=== PATIENT | female | born 1940 | race Caucasian/White ===

== ENCOUNTER 2021-02-14 20:49 | Inpatient (IN) ==
--- NOTE | 2021-02-14 21:06 | Emergency Department Note ---
History of Present Illness General Chief complaint: Hip Pain Stated complaint: hip pain Time Seen by Provider: 02/14/21 20:52 Source: patient Mode of arrival: EMS Limitations: no limitations History of Present Illness Provider complaint: Fall, right hip pain Onset (ago): hour(s) 1 Location: hip Radiation: non-radiation Severity: moderate Pain Consistency: + constant Quality: + constant Relieved By: + none Exacerbated By: + movement Associated symptoms: + denies other symptoms Treatments prior to arrival: none This is a 80-year-old female brought in by EMS after a fall and injury to the right hip. Patient states she was playing "[employer] [place]" with her great grandson at her house, and lost her balance and tripped at the end of the song and fell landing on her right hip. Patient denies any other injury. She denies any head trauma or loss of consciousness. Patient states she does not use any aspirin or anticoagulation medication. Patient states she does have high blood pressure, denies any other medical problems. Patient states pain is worse with any movement. Patient denies any prior injury to the right hip. Patient states she is ongoing chronic right knee pain due to severe arthritis. Patient denies any neck or back pain, abdominal pain. Denies any numbness or tingling. Denies any incontinence since the fall. Pt seen during a time of high acuity and national emergency pandemic while wearing PPE. Home Medications Medication Instructions Recorded Confirmed Type amlodipine 5 mg PO QAM 02/14/21 02/14/21 History atenolol 25 mg PO QAM 02/14/21 02/14/21 History lisinopril 20 mg PO BID 02/14/21 02/14/21 History multivitamin 1 tab PO QAM 02/14/21 02/14/21 History paroxetine HCl 20 mg PO HS 02/14/21 02/14/21 History potassium 99 mg PO QAM 02/14/21 02/14/21 History simvastatin 20 mg PO HS 02/14/21 02/14/21 History Allergies Allergy/AdvReac Type Severity Reaction Status Date / Time No Known Allergies Allergy Verified 02/14/21 21:46 Past Med/Surg History Medical History Arthritis Hypertension Social History Smoking Status: Never smoker Hx Alcohol Use: No Hx Substance Use: No Preferred Language: Citizen Of [place] Communication Ability: Effective Door Serviceman Required: No Current Living Situation: Family Current Living Situation Comment: dtr Feels Safe at Home: Yes Assistive Devices: Cane, Denture - Upper, Denture - Lower and Glasses Review of Systems See HPI for pertinent positives & negatives. and A total of 10 systems reviewed and were otherwise negative Physical Exam Vital Signs Vital Signs - 24 hr 02/14/21 21:00 02/14/21 21:02 02/14/21 21:30 Temperature 37.2 C Temperature Source Oral Pulse Rate 95 H 99 H 102 H Pulse Rate from SpO2 Sensor 96 H Respiratory Rate 17 18 18 Respiratory Depth Normal Blood Pressure 182/109 H 173/95 H 167/104 H Blood Pressure Mean 133 121 125 Pulse Oximetry 97 97 96 Oxygen Delivery Method Room Air Room Air Room Air Sepsis Recent Fever Within 48 Hours No Sepsis New/Unexplained Change in Mental Status N/A Sepsis Action Taken by Nursing No Action Required 02/14/21 22:00 02/14/21 22:30 02/14/21 23:00 Temperature Temperature Source Pulse Rate 93 H 94 H 94 H Pulse Rate from SpO2 Sensor 94 H 95 H 95 H Respiratory Rate 18 21 21 Respiratory Depth Blood Pressure 158/90 H 144/87 H 152/89 H Blood Pressure Mean 112 106 110 Pulse Oximetry 96 96 96 Oxygen Delivery Method Room Air Room Air Room Air Sepsis Recent Fever Within 48 Hours Sepsis New/Unexplained Change in Mental Status Sepsis Action Taken by Nursing GENERAL: alert, well appearing, well nourished, no distress, non-toxic EYE EXAM: normal conjunctiva, PERRL and EOM's grossly intact OROPHARYNX: no exudate, no erythema, lips, buccal mucosa, and tongue normal and mucous membranes are moist NECK: supple, no nuchal rigidity, no adenopathy, non-tender LUNGS: Clear to auscultation. Normal chest wall mechanics, no w/r/r HEART: no murmurs, S1 normal and S2 normal ABDOMEN: abdomen soft, non-tender, normo-active bowel sounds, no masses, no rebound or guarding. BACK: Back is symmetrical on inspection and there is no deformity, no midline tenderness, no CVA tenderness. SKIN: no rashes and no bruising UPPER EXTREMITIES: upper extremities are grossly normal. FROM, nml pulses b/l. No evidence of trauma. LOWER EXTREMITIES: Pain with palpation over the right lateral hip, right lower extremity shortened and externally rotated, no pain with palpation over the knee or distal right lower extremity, compartments soft, no joint effusions, sensation intact, patient able to wiggle toes. Patient's left lower extremity normal, with full range of motion, no evidence of trauma, no complaints of pain. NEURO EXAM: Normal sensorium, cranial nerves II-XII grossly intact, normal speech, no gross weakness of arms, no gross weakness of legs. Gross sensation intact. Course Course 2149: Patient and daughter at bedside updated on results. They state she has previously seen orthopedics but cannot recall the name. Daughter believes is may have been with U but is going to try and check. 2247: Discussed with Dr. Howard. Administered Medications Hydromorphone HCl (Hydromorphone Inj 0.5 Mg/0.5 Ml Syr) 0.5 mg IV Q3H PRN PRN Reason: Pain (6,7,8,9,10) Stop: 03/01/21 00:53 Last Admin: 02/15/21 01:25 Dose: 0.5 mg Documented by: [id number] Lactated Ringer's (Lr) 1,000 mls @ 80 mls/hr IV .[id number] [facility] Stop: 03/17/21 00:53 Last Admin: 02/15/21 01:24 Dose: 80 mls/hr Documented by: [id number] Discontinued Medications Lactated Ringer's (Lr) 1,000 mls @ 150 mls/hr IV .[id number] [facility] Stop: 03/16/21 21:14 Last Infusion: 02/15/21 01:12 Dose: 0 mls/hr Documented by: [id number] Admin: 02/14/21 21:24 Dose: 150 mls/hr Documented by: [id number] Morphine Sulfate (Morphine Sulfate 2 Mg/Ml Carp) 2 mg IV Q1H PRN PRN Reason: Moderate Pain (Rating 3,4,5,6) Stop: 02/28/21 21:00 Last Admin: 02/14/21 23:22 Dose: 2 mg Documented by: [id number] Admin: 02/14/21 21:24 Dose: 2 mg Documented by: [id number] Ondansetron HCl (Ondansetron Inj 2 Mg/Ml 2 Ml Vial) 4 mg IV ONCE ONE Stop: 02/15/21 00:06 Last Admin: 02/15/21 00:05 Dose: 4 mg Documented by: [id number] Ondansetron HCl (Ondansetron Inj 2 Mg/Ml 2 Ml Vial) Confirm Administered Dose 4 mg .ROUTE .STK-MED ONE Stop: 02/15/21 00:04 Last Admin: 02/15/21 01:04 Dose: Not Given Documented by: [id number] Medical Decision Making Differential Diagnosis Fracture, subluxation, dislocation, contusion, ligamentous injury, neurovascular, compartment syndrome, rhabdomyolysis, as well as other pathologies. Medical Records Attestation: I reviewed the patient's medical records. Home Medications Current Medication List: was personally reviewed by me Laboratory Data Attestation: I reviewed the patient's lab results. Result diagrams: 02/14/21 21:21 02/14/21 21:21 Lab Results 02/14/21 02/14/21 02/14/21 Range/Units 21:21 21:21 21:21 WBC 10.83 H (4.8-10.8) K/uL RBC 4.70 (4.2-5.4) M/uL Hgb 13.7 (12.0-16.0) g/dL Hct 40.2 (37-47) % MCV 85.5 (80-100) fL MCH 29.1 (25-34) pg MCHC 34.1 (32-36) g/dL RDW Std Deviation 40.4 (36.4-46.3) fL RDW Coeff of Adolfo 12.8 (11.5-14.5) % Plt Count 216 (130-400) K/uL MPV 11.1 H (7.4-10.4) fL Immature Gran % (Auto) 0.3 % Neut % (Auto) 76.8 % Lymph % (Auto) 12.9 % [place] % (Auto) 9.0 % Eos % (Auto) 0.7 % Baso % (Auto) 0.3 % Neut # (Auto) 8.32 H (1.4-6.5) K/uL Lymph # (Auto) 1.40 (1.2-3.4) K/uL [place] # (Auto) 0.97 H (0.11-0.59) K/uL Eos # (Auto) 0.08 (0-0.5) K/uL Baso # (Auto) 0.03 (0-0.2) K/uL Immature Gran # (Auto) 0.03 H (0.00-0.02) K/uL PT 10.6 (9.0-12.0) Seconds INR 1.0 (0.9-1.1) APTT 25.7 (21.0-31.0) Seconds PTT Ratio 1.0 Sodium 140 (136-145) mmol/L Potassium 3.8 (3.5-5.1) mmol/L Chloride 109 H (98-107) mmol/L Carbon Dioxide 26 (21-32) mmol/L Anion Gap 4.0 (3-11) BUN 19 H (7-18) mg/dl Creatinine 0.83 (0.6-1.2) mg/dl Est Cr Clr Drug Dosing 55.5 ml/min Est GFR ( Amer) 78.3 Est GFR (Non-Af Amer) 67.5 BUN/Creatinine Ratio 22.3 H (10-20) Glucose 206 H (70-99) mg/dl Calcium 9.1 (8.5-10.1) mg/dl Total Bilirubin 0.3 (0.2-1) mg/dl AST 19 (15-37) U/L ALT 23 (12-78) U/L Alkaline Phosphatase 132 H (45-117) U/L Total Protein 6.8 (6.4-8.2) gm/dl Albumin 3.9 (3.4-5.0) gm/dl Globulin 2.9 (2.5-4.0) gm/dl Albumin/Globulin Ratio 1.3 (0.9-2) Specimen Hemolysis Urine Color Urine Appearance (Clear) Urine pH (4.5-7.5) Ur Specific [place] (1.000-1.030) Urine Protein (Negative) Urine Glucose (UA) (Negative) Urine Ketones (Negative) Urine Blood (Negative) Urine Nitrite (Negative) Urine Bilirubin (Negative) Urine Urobilinogen (Negative) Ur Leukocyte Esterase (Negative) COVID-19 Eval Order SARS-CoV-2 (PCR) (Negative) Influenza Type A (PCR) (Neg) Influenza Type B (PCR) (Neg) RSV (RT-PCR) (Neg) Blood Type Antibody Screen 02/14/21 02/14/21 02/14/21 Range/Units 21:23 21:23 21:46 WBC (4.8-10.8) K/uL RBC (4.2-5.4) M/uL Hgb (12.0-16.0) g/dL Hct (37-47) % MCV (80-100) fL MCH (25-34) pg MCHC (32-36) g/dL RDW Std Deviation (36.4-46.3) fL RDW Coeff of Adolfo (11.5-14.5) % Plt Count (130-400) K/uL MPV (7.4-10.4) fL Immature Gran % (Auto) % Neut % (Auto) % Lymph % (Auto) % [place] % (Auto) % Eos % (Auto) % Baso % (Auto) % Neut # (Auto) (1.4-6.5) K/uL Lymph # (Auto) (1.2-3.4) K/uL [place] # (Auto) (0.11-0.59) K/uL Eos # (Auto) (0-0.5) K/uL Baso # (Auto) (0-0.2) K/uL Immature Gran # (Auto) (0.00-0.02) K/uL PT (9.0-12.0) Seconds INR (0.9-1.1) APTT (21.0-31.0) Seconds PTT Ratio Sodium (136-145) mmol/L Potassium (3.5-5.1) mmol/L Chloride (98-107) mmol/L Carbon Dioxide (21-32) mmol/L Anion Gap (3-11) BUN (7-18) mg/dl Creatinine (0.6-1.2) mg/dl Est Cr Clr Drug Dosing ml/min Est GFR ( Amer) Est GFR (Non-Af Amer) BUN/Creatinine Ratio (10-20) Glucose (70-99) mg/dl Calcium (8.5-10.1) mg/dl Total Bilirubin (0.2-1) mg/dl AST (15-37) U/L ALT (12-78) U/L Alkaline Phosphatase (45-117) U/L Total Protein (6.4-8.2) gm/dl Albumin (3.4-5.0) gm/dl Globulin (2.5-4.0) gm/dl Albumin/Globulin Ratio (0.9-2) Specimen Hemolysis Urine Color Urine Appearance (Clear) Urine pH (4.5-7.5) Ur Specific [place] (1.000-1.030) Urine Protein (Negative) Urine Glucose (UA) (Negative) Urine Ketones (Negative) Urine Blood (Negative) Urine Nitrite (Negative) Urine Bilirubin (Negative) Urine Urobilinogen (Negative) Ur Leukocyte Esterase (Negative) COVID-19 Eval Order CovFluRsv at [facility] SARS-CoV-2 (PCR) NEGATIVE (Negative) Influenza Type A (PCR) Negative (Neg) Influenza Type B (PCR) Negative (Neg) RSV (RT-PCR) Negative (Neg) Blood Type O Positive Antibody Screen NEGATIVE 02/14/21 Range/Units 22:15 WBC (4.8-10.8) K/uL RBC (4.2-5.4) M/uL Hgb (12.0-16.0) g/dL Hct (37-47) % MCV (80-100) fL MCH (25-34) pg MCHC (32-36) g/dL RDW Std Deviation (36.4-46.3) fL RDW Coeff of Adolfo (11.5-14.5) % Plt Count (130-400) K/uL MPV (7.4-10.4) fL Immature Gran % (Auto) % Neut % (Auto) % Lymph % (Auto) % [place] % (Auto) % Eos % (Auto) % Baso % (Auto) % Neut # (Auto) (1.4-6.5) K/uL Lymph # (Auto) (1.2-3.4) K/uL [place] # (Auto) (0.11-0.59) K/uL Eos # (Auto) (0-0.5) K/uL Baso # (Auto) (0-0.2) K/uL Immature Gran # (Auto) (0.00-0.02) K/uL PT (9.0-12.0) Seconds INR (0.9-1.1) APTT (21.0-31.0) Seconds PTT Ratio Sodium (136-145) mmol/L Potassium (3.5-5.1) mmol/L Chloride (98-107) mmol/L Carbon Dioxide (21-32) mmol/L Anion Gap (3-11) BUN (7-18) mg/dl Creatinine (0.6-1.2) mg/dl Est Cr Clr Drug Dosing ml/min Est GFR ( Amer) Est GFR (Non-Af Amer) BUN/Creatinine Ratio (10-20) Glucose (70-99) mg/dl Calcium (8.5-10.1) mg/dl Total Bilirubin (0.2-1) mg/dl AST (15-37) U/L ALT (12-78) U/L Alkaline Phosphatase (45-117) U/L Total Protein (6.4-8.2) gm/dl Albumin (3.4-5.0) gm/dl Globulin (2.5-4.0) gm/dl Albumin/Globulin Ratio (0.9-2) Specimen Hemolysis Urine Color Yellow Urine Appearance Clear (Clear) Urine pH 5.5 (4.5-7.5) Ur Specific [place] 1.020 (1.000-1.030) Urine Protein Negative (Negative) Urine Glucose (UA) Trace H (Negative) Urine Ketones Trace H (Negative) Urine Blood Negative (Negative) Urine Nitrite Negative (Negative) Urine Bilirubin Negative (Negative) Urine Urobilinogen Negative (Negative) Ur Leukocyte Esterase Negative (Negative) COVID-19 Eval Order SARS-CoV-2 (PCR) (Negative) Influenza Type A (PCR) (Neg) Influenza Type B (PCR) (Neg) RSV (RT-PCR) (Neg) Blood Type Antibody Screen Imaging Data Radiologist's Impression: Chest X-Ray 02/14/21 21:01 SINGLE VIEW CHEST CLINICAL HISTORY: Trauma. Hypertension. FINDINGS: An AP, portable, supine chest radiograph is obtained. No prior studies are available for comparison at the time of dictation. The heart is top normal for projection noting atherosclerotic calcification of the thoracic aorta. The mitral annulus is densely calcified. Question a hiatal hernia. Nonspecific interstitial thickening is likely chronic. There is no airspace consolidation or large pleural effusion. No pneumothorax is seen. The skeletal structures are osteopenic. There are healed left-sided rib fractures. IMPRESSION: No acute cardiopulmonary abnormality. ACT 112: Negative or not required by law. Electronically signed by: Wai Prather M.D. 02/14/2021 9:44 PM Hip/Pelvis X-Ray 02/14/21 21:01 SINGLE VIEW PELVIS; 2 VIEWS RIGHT HIP CLINICAL HISTORY: Trauma. FINDINGS: An AP view of the pelvis with AP and crosstable lateral views of the right hip are obtained. No prior studies are available for comparison at the time of dictation. The skeletal structures are osteopenic. The left hip and bony pelvis appear intact. There is a comminuted and angulated intertrochanteric fracture of the right femur with medial displacement of the lesser trochanter. Overlying soft tissue edema is noted. Mild to moderate degenerative joint space narrowing is present in both hips. Sclerotic change is seen in the sacroiliac joints and pubic symphysis. Spondylotic change is partially visualized in the lower lumbar spine. IMPRESSION: Intertrochanteric fracture of the right femur as above. Electronically signed by: Wai Prather M.D. 02/14/2021 9:43 PM ECG Data Attestation: I personally reviewed and interpreted this ECG as follows: Rate (beats per minute): 92 Rhythm: + normal sinus ECG Intervals/blocks: + Normal QRS and + Normal QT ECG [place]: + Normal ECG ST segments: + Normal ST segments MDM Narrative This is a 80-year-old female presents after an accidental mechanical fall at home. Patient denies any head trauma or loss of consciousness. No preceding or prodromal symptoms to otherwise suggest syncopal event. Patient hemodynamically stable here with complaints of isolated right hip pain, which was worse with m ovement. Patient found to have a right intertrochanteric hip fracture on x-ray. Patient's other labs and imaging reassuring. Case discussed with hospitalist for additional inpatient management and evaluation and orthopedic consultation. Daughter at bedside trying to recall name of prior orthopedist she had seen. This was conveyed to hospitalist for additional follow-up prior to contacting orthopedics. Patient neurovascularly intact. I do not suspect other occult traumatic injury. Patient not on any anticoagulation or antiplatelet therapy. Patient and daughter made aware of results and were in agreement with plan. An order was placed for continuous cardiac monitoring. The monitor shows a rate of _80 with _normal sinus rhythm. Impression & Plan Hip pain, Hypertension, Intertrochanteric fracture of right hip, Fall Discharge Plan Visit Data Chief Complaint: Hip Pain Stated Complaint: hip pain ED Provider: Laura Kitchen Discharge Problem: Hip pain, Hypertension, Intertrochanteric fracture of right hip, Fall Patient Disposition: Admitted As Inpatient Discharge Instructions Interventions: ED Discharge Assessment Last Done: 02/15/21 00:17 Discharge Problem: Hypertension Qualifiers: Hypertension type: essential hypertension Qualified Code(s): I10 - Essential (primary) hypertension Intertrochanteric fracture of right hip Qualifiers: Encounter type: initial encounter Fracture type: closed Fracture alignment: nondisplaced Qualified Code(s): S72.144A - Nondisplaced intertrochanteric fracture of right femur, initial encounter for closed fracture Fall Qualifiers: Encounter type: initial encounter Qualified Code(s): W19.XXXA - Unspecified fall, initial encounter
[2021-02-14] MEDS ORDERED: LACTATED RINGER'S 1,000 ML IV SCH (21:15)
[2021-02-14] MEDS: MoRPHine SULFATE 2 MG/ML CARP IV PRN ×2 (21:24→23:22)
[2021-02-14 21:30] LABS: Basophils # (auto) 0.03 K/uL (0-0.2); Basophils % (auto) 0.3 %; Eosinophils # (auto) 0.08 K/uL (0-0.5); Eosinophils % (auto) 0.7 %; Hematocrit (blood only) 40.2 % (37-47); Hemoglobin 13.7 g/dL (12.0-16.0); Immature Granulocytes # (auto) 0.03 K/uL (0.00-0.02); Immature Granulocytes % (auto) 0.3 %; Lymphocytes % (auto) 12.9 %; Mean Corpuscular Hemoglobin 29.1 pg (25-34); Mean Corpuscular Hgb Conc 34.1 g/dL (32-36); Mean Corpuscular Volume 85.5 fL (80-100); Mean Platelet Volume 11.1 fL (7.4-10.4); Monocytes # (auto) 0.97 K/uL (0.11-0.59); Neutrophils # (auto) 8.32 K/uL (1.4-6.5); Neutrophils % (auto) 76.8 %; Platelet Count 216 K/uL (130-400); RDW Coefficient of Variation 12.8 % (11.5-14.5); RDW Standard Deviation 40.4 fL (36.4-46.3); White Blood Count 10.83 K/uL (4.8-10.8)
[2021-02-14 21:43] LABS: Partial Thromboplastin Time 25.7 Seconds (21.0-31.0); Prothrombin Time 10.6 Seconds (9.0-12.0)
--- NOTE | 2021-02-14 21:44 | XRay Report ---
SINGLE VIEW PELVIS; 2 VIEWS RIGHT HIP CLINICAL HISTORY: Trauma. FINDINGS: An AP view of the pelvis with AP and crosstable lateral views of the right hip are obtained . No prior studies are available for comparison at the time of dictation. The skeletal structures are osteopenic. The left hip and bony pelvis appear intact. There is a comminuted and angulated intertro chanteric fracture of the right femur with medial displacement of the lesser trochanter. Overlying so ft tissue edema is noted. Mild to moderate degenerative joint space narrowing is present in both hips . Sclerotic change is seen in the sacroiliac joints and pubic symphysis. Spondylotic change is partia lly visualized in the lower lumbar spine. IMPRESSION: Intertrochanteric fracture of the right femur as above. Electronically signed by: Wai Prather M.D. 02/14/2021 9:43 PM
--- NOTE | 2021-02-14 21:46 | XRay Report ---
SINGLE VIEW CHEST CLINICAL HISTORY: Trauma. Hypertension. FINDINGS: An AP, portable, supine chest radiograph is obtained. No prior studies are available for co mparison at the time of dictation. The heart is top normal for projection noting atherosclerotic asim cification of the thoracic aorta. The mitral annulus is densely calcified. Question a hiatal hernia. Nonspecific interstitial thickening is likely chronic. There is no airspace consolidation or large pl eural effusion. No pneumothorax is seen. The skeletal structures are osteopenic. There are healed lef t-sided rib fractures. IMPRESSION: No acute cardiopulmonary abnormality. ACT 112: Negative or not required by law. Electronically signed by: Wai Prather M.D. 02/14/2021 9:44 PM
[2021-02-14 21:48] LABS: Albumin Level 3.9 gm/dl (3.4-5.0); BUN Creatinine Ratio 22.3 (10-20); Calcium 9.1 mg/dl (8.5-10.1); Creatinine Clr Calc Pharmacy 55.5 ml/min; Est GFR (African American) 78.3; Est GFR (Non-African American) 67.5; Potassium 3.8 mmol/L (3.5-5.1)
[2021-02-14 21:52] LABS: Albumin Globulin Ratio 1.3 (0.9-2); Bilirubin,Total 0.3 mg/dl (0.2-1); Globulin 2.9 gm/dl (2.5-4.0); Total Protein 6.8 gm/dl (6.4-8.2)
[2021-02-14] MEDS ORDERED: LORazepam 0.5 MG/1 ML VIAL IV PRN (21:57)
[2021-02-14 22:17] LABS: Influenza A virus by PCR Negative (Neg); Influenza B virus by PCR Negative (Neg); RSV by PCR Negative (Neg); SARS CoV2 RNA(COVID-19) InHosp NEGATIVE (Negative)
[2021-02-14 22:36] LABS: Appearance Urine Clear (Clear); Bilirubin Urine Negative (Negative); Blood Urine Negative (Negative); Color Urine Yellow; Glucose Urine UA Trace (Negative); Ketones Urine Trace (Negative); Leukocyte Esterase Urine Negative (Negative); Nitrite Urine Negative (Negative); Protein Urine Negative (Negative); Urobilinogen Urine Negative (Negative); pH Urine 5.5 (4.5-7.5)
--- NOTE | 2021-02-14 22:52 | Orthopedic Consultation ---
Date of Service February 14, 2021 Assessment & Plan (1) Intertrochanteric fracture of right hip: Time was spent at bedside discussing the diagnosis with Helen and her family. With a displaced intertrochanteric hip fracture I do recommend operative fixation. The procedure of choice is an intramedullary nail fixation of the right hip. She will be admitted to the medicine service. I put her on the OR schedule for tomorrow. She can be n.p.o. past midnight tonight. Her and her family understand the risk, benefits, and alternatives to procedure and elected to proceed. The decision was made for surgery. History of Present Illness Reason for Consultation: Right intertrochanteric hip fracture. Requesting Physician: . Helen is a pleasant 80-year-old female who was playing ring around the [place] with her 2-year-old this evening. At the end of the song she fell down and hurt her hip. She came to the emergency room and radiographs demonstrated a right intertrochanteric hip fracture. Orthopedics was consulted to evaluate and treat.. Allergies Allergy/AdvReac Type Severity Reaction Status Date / Time No Known Allergies Allergy Verified 02/14/21 21:46 Home Medications Medication Instructions Recorded Confirmed Type amlodipine 5 mg PO QAM 02/14/21 02/14/21 History atenolol 25 mg PO QAM 02/14/21 02/14/21 History lisinopril 20 mg PO BID 02/14/21 02/14/21 History multivitamin 1 tab PO QAM 02/14/21 02/14/21 History paroxetine HCl 20 mg PO HS 02/14/21 02/14/21 History potassium 99 mg PO QAM 02/14/21 02/14/21 History simvastatin 20 mg PO HS 02/14/21 02/14/21 History Past Med/Surg History Medical History Arthritis Hypertension Social History Smoking Status: Never smoker Hx Alcohol Use: No Hx Substance Use: No Preferred Language: Romanian Communication Ability: Effective 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 Physical Exam On physical examination of the right hip, the right lower extremity is shortened and externally rotated. She has pain with logroll of the right hip. She has active dorsiflexion and plantarflexion of the right ankle. Sensation is intact throughout.. Constitutional WD/WN, vitals as above Eyes PERRL, conjunctivae normal, anicteric sclerae ENMT external ear and nose normal, oropharynx normal Neck trachea midline, no thyromegaly Respiratory normal respiratory effort Cardiovascular RRR, no murmur, no edema Gastrointestinal (Abdomen) normal bowel sounds, soft, nontender, no hepatosplenomegaly Psychiatric A+Ox3, euthymic affect Results & Data Results & Data Laboratory Results . Diagnostic Findings X-rays of the right hip show a displaced intertrochanteric right hip fracture. I not see any significant glenohumeral arthritis.. PG Care Time/CCT Total # of Minutes Spent Total Time Spent with Patient: Total time spent is greater than 50% in coordination of care (as documented) at patient's floor/unit and/or counseling patient: Coding Level of Care Code 43616 Inpt Consult Level 5 (57 - DECISION FOR SURGERY) Diagnoses Intertrochanteric fracture of right hip S72.141A
--- NOTE | 2021-02-14 23:23 | History & Physical Report ---
Date of Service February 14, 2021 Assessment & Plan (1) Intertrochanteric fracture of right hip: Admit to medical surgical floor. N.p.o. after midnight Geriatric hip fracture protocol order set Acetaminophen 650 mg p.o. every 6 hours as needed mild pain or fever Viola 5/325, 1 p.o. every 6 hours as needed moderate pain Viola 5/325, 2 p.o. every 6 hours as needed severe pain Dilaudid 0.25 mg IV every 3 hours as needed moderate pain Dilaudid 0.5 mg IV every 3 hours as needed severe pain NSS + KCl 20 mEq at 80 mils per hour Zofran 4 mg IV every 6 hours as needed Consult orthopedic surgery Present on Admission?: Yes (2) Hypertension: Continue amlodipine, atenolol and lisinopril with hold parameters Present on Admission?: Yes (3) Hyperlipidemia: Continue simvastatin 20 mg at bedtime Present on Admission?: Yes (4) Depression: Continue paroxetine 20 mg at bedtime Present on Admission?: Yes (5) Hyperglycemia: Glucose 206 upon admission labs. Check hemoglobin A1c Placed on Accu-Cheks before meals and at bedtime with NovoLog coverage per scale Not on any current diabetic treatments as outpatient Present on Admission?: Yes History of Present Illness Chief Complaint: The patient presents to the emergency department after a fall while playing with her 2-year-old grandchild, and sustained immediate right hip pain with inability to bear weight. Primary Care Provider: Luis Ewing The patient is a 80-year-old female with a past medical history including hypertension, depression, hyperlipidemia and arthritis. She presents as noted above. Imaging studies in the emergency department revealed a closed right femoral intratrochanteric fracture. Patient was seen in the ED by orthopedic surgery Dr. López, who will take the patient to the OR tomorrow for surgical repair. Allergies Allergy/AdvReac Type Severity Reaction Status Date / Time No Known Allergies Allergy Verified 02/14/21 21:46 Home Medications Medication Instructions Recorded Confirmed Type amlodipine 5 mg PO QAM 02/14/21 02/14/21 History atenolol 25 mg PO QAM 02/14/21 02/14/21 History lisinopril 20 mg PO BID 02/14/21 02/14/21 History multivitamin 1 tab PO QAM 02/14/21 02/14/21 History paroxetine HCl 20 mg PO HS 02/14/21 02/14/21 History potassium 99 mg PO QAM 02/14/21 02/14/21 History simvastatin 20 mg PO HS 02/14/21 02/14/21 History Past Med/Surg History Medical History Arthritis Hypertension Social History Smoking Status: Never smoker Hx Alcohol Use: No Hx Substance Use: No Preferred Language: Luxembourgish Communication Ability: Effective Safety Specialist Required: No Current Living Situation: Family Current Living Situation Comment: dtr Feels Safe at Home: Yes Assistive Devices: Glasses Review of Systems Review of Systems: The patient denies chest pain, palpitations, shortness of breath, dyspnea on exertion, cough, lower extremity swelling, sore throat, fevers, chills, sweats, weight change, fatigue, nausea, vomiting, diarrhea , constipation, abdominal pain, pelvic pain, blood in urine or stool, dysuria, urinary frequency or urgency, lightheadedness, dizziness, headache, memory loss, loss of consciousness, rash, generalized weakness, numbness or tingling in arms, generalized arthralgias or myalgias, back or neck pain, or night sweats. The review of systems is otherwise negative other than for that already noted above, and at least 10 systems have been reviewed. Physical Exam Physical Exam: The patient is awake, alert and oriented 3, well developed and well nourished, normocephalic and atraumatic, lying in bed and in no acute distress while lying still HEENT--PERRL, EOMI, mucous membranes and oropharynx dry. Neck--supple. No JVD. No bruits. Thyroid normal, trachea midline, no adenopathy. Heart--normal S1 and S2. No murmurs, rubs or gallops. Lungs--clear bilaterally, no respiratory distress, no accessory muscle use. Abdomen--normal bowel sounds and soft. Nontender. Nondistended, no hernias or masses, no organomegaly. Extremities--no cyanosis or clubbing. No edema. Dermatologic--normal skin turgor, normal color, no abnormal lymph nodes, no rash. Neurologic--cranial nerves II through XII grossly intact. Rheumatologic--limited exam due to hip pain Psychiatric--normal affect. Results & Data Results & Data ([facility]) Vital Signs (Past 12 Hours) Vital Signs Temp Pulse Resp BP Pulse Ox 02/14/21 21:02 99.0 F 99 H 18 173/95 H 97 Laboratory Results Laboratory Results WBC 10.83 K/uL (4.8-10.8) H 02/14/21 21:21 RBC 4.70 M/uL (4.2-5.4) 02/14/21 21:21 Hgb 13.7 g/dL (12.0-16.0) 02/14/21 21:21 Hct 40.2 % (37-47) 02/14/21 21: MCV 85.5 fL (80-100) 02/14/21 21: MCH 29.1 pg (25-34) 02/14/21 21: MCHC 34.1 g/dL (32-36) 02/14/21 21: RDW Std Deviation 40.4 fL (36.4-46.3) 02/14/21 21: RDW Coeff of Adolfo 12.8 % (11.5-14.5) 02/14/21 21: Plt Count 216 K/uL (130-400) 02/14/21 21: MPV 11.1 fL (7.4-10.4) H 02/14/21 21: Immature Gran % (Auto) 0.3 % 02/14/21 21: Neut % (Auto) 76.8 % 02/14/21 21: Lymph % (Auto) 12.9 % 02/14/21 21: Luna % (Auto) 9.0 % 02/14/21 21: Eos % (Auto) 0.7 % 02/14/21 21: Baso % (Auto) 0.3 % 02/14/21 21:21 Neut # (Auto) 8.32 K/uL (1.4-6.5) H 02/14/21 21:21 Lymph # (Auto) 1.40 K/uL (1.2-3.4) 02/14/21 21:21 Luna # (Auto) 0.97 K/uL (0.11-0.59) H 02/14/21 21:21 Eos # (Auto) 0.08 K/uL (0-0.5) 02/14/21 21:21 Baso # (Auto) 0.03 K/uL (0-0.2) 02/14/21 21:21 Immature Gran # (Auto) 0.03 K/uL (0.00-0.02) H 02/14/21 21:21 PT 10.6 Seconds (9.0-12.0) 02/14/21 21:21 INR 1.0 (0.9-1.1) 02/14/21 21:21 APTT 25.7 Seconds (21.0-31.0) 02/14/21 21: PTT Ratio 1.0 02/14/21 21:21 Sodium 140 mmol/L (136-145) 02/14/21 21: Potassium 3.8 mmol/L (3.5-5.1) 02/14/21 21: Chloride 109 mmol/L (98-107) H 02/14/21 21:21 Carbon Dioxide 26 mmol/L (21-32) 02/14/21 21: Anion Gap 4.0 (3-11) 02/14/21 21:21 BUN 19 mg/dl (7-18) H 02/14/21 21:21 Creatinine 0.83 mg/dl (0.6-1.2) 02/14/21 21: Est Cr Clr Drug Dosing 55.5 ml/min 02/14/21 21:21 Est GFR ( Amer) 78.3 02/14/21 21:21 Est GFR (Non-Af Amer) 67.5 02/14/21 21:21 BUN/Creatinine Ratio 22.3 (10-20) H 02/14/21 21:21 Glucose 206 mg/dl (70-99) H 02/14/21 21:21 Calcium 9.1 mg/dl (8.5-10.1) 02/14/21 21:21 Total Bilirubin 0.3 mg/dl (0.2-1) 02/14/21 21:21 AST 19 U/L (15-37) 02/14/21 21:21 ALT 23 U/L (12-78) 02/14/21 21:21 Alkaline Phosphatase 132 U/L (45-117) H 02/14/21 21:21 Total Protein 6.8 gm/dl (6.4-8.2) 02/14/21 21:21 Albumin 3.9 gm/dl (3.4-5.0) 02/14/21 21:21 Globulin 2.9 gm/dl (2.5-4.0) 02/14/21 21:21 Albumin/Globulin Ratio 1.3 (0.9-2) 02/14/21 21:21 Specimen Hemolysis 02/14/21 21:21 Urine Color Yellow 02/14/21 22:15 Urine Appearance Clear (Clear) 02/14/21 22:15 Urine pH 5.5 (4.5-7.5) 02/14/21 22:15 Ur Specific [place] 1.020 (1.000-1.030) 02/14/21 22:15 Urine Protein Negative (Negative) 02/14/21 22:15 Urine Glucose (UA) Trace (Negative) H 02/14/21 22:15 Urine Ketones Trace (Negative) H 02/14/21 22:15 Urine Blood Negative (Negative) 02/14/21 22:15 Urine Nitrite Negative (Negative) 02/14/21 22:15 Urine Bilirubin Negative (Negative) 02/14/21 22:15 Urine Urobilinogen Negative (Negative) 02/14/21 22:15 Ur Leukocyte Esterase Negative (Negative) 02/14/21 22:15 COVID-19 Eval Order [facility] at [facility] 02/14/21 21:23 SARS-CoV-2 (PCR) NEGATIVE (Negative) 02/14/21 21:23 Influenza Type A (PCR) Negative (Neg) 02/14/21 21:23 Influenza Type B (PCR) Negative (Neg) 02/14/21 21:23 RSV (RT-PCR) Negative (Neg) 02/14/21 21:23 Blood Type O Positive 02/14/21 21:46 Antibody Screen NEGATIVE 02/14/21 21:46 Impressions Chest X-Ray 02/14/21 21:01 SINGLE VIEW CHEST CLINICAL HISTORY: Trauma. Hypertension. FINDINGS: An AP, portable, supine chest radiograph is obtained. No prior studies are available for comparison at the time of dictation. The heart is top normal for projection noting atherosclerotic calcification of the thoracic aorta. The mitral annulus is densely calcified. Question a hiatal hernia. Nonspecific interstitial thickening is likely chronic. There is no airspace consolidation or large pleural effusion. No pneumothorax is seen. The skeletal structures are ost eopenic. There are healed left-sided rib fractures. IMPRESSION: No acute cardiopulmonary abnormality. ACT 112: Negative or not required by law. Electronically signed by: Wai Prather M.D. 02/14/2021 9:44 PM Hip/Pelvis X-Ray 02/14/21 21:01 SINGLE VIEW PELVIS; 2 VIEWS RIGHT HIP CLINICAL HISTORY: Trauma. FINDINGS: An AP view of the pelvis with AP and crosstable lateral views of the right hip are obtained. No prior studies are available for comparison at the time of dictation. The skeletal structures are osteopenic. The left hip and bony pelvis appear intact. There is a comminuted and angulated intertrochanteric fracture of the right femur with medial displacement of the lesser trochanter. Overlying soft tissue edema is noted. Mild to moderate degenerative joint space narrowing is present in both hips. Sclerotic change is seen in the sacroiliac joints and pubic symphysis. Spondylotic change is partially visualized in the lower lumbar spine. IMPRESSION: Intertrochanteric fracture of the right femur as above. Electronically signed by: Wai Prather M.D. 02/14/2021 9:43 PM Code Status & VTE Plan Code Status Full code VTE Prophylaxis Plan VTE Prophylaxis will be ordered: Yes PG Care Time/CCT Total # of Minutes Spent Total Time Spent with Patient: Total time spent is greater than 50% in coordination of care (as documented) at patient's floor/unit and/or counseling patient: Coding Level of Care Code 28043 Initial Inpt Care Lvl 3 Diagnoses Intertrochanteric fracture of right hip S72.144A Encounter type: initial encounter Fracture alignment: nondisplaced Fracture type: closed Hypertension I10 Hypertension type: essential hypertension Hyperlipidemia E78.5 Depression F32.9 Hyperglycemia R73.9 (1) Intertrochanteric fracture of right hip Encounter type: initial encounter Fracture alignment: nondisplaced Fracture type: closed Qualified Code(s): S72.144A - Nondisplaced intertrochanteric fracture of right femur, initial encounter for closed fracture (2) Hypertension Hypertension type: essential hypertension Qualified Code(s): I10 - Essential (primary) hypertension
[2021-02-15] MEDS ORDERED: ONDANSETRON INJ 2 MG/ML 2 ML VIAL ONE ×2 (00:03→09:28)
[2021-02-15] MEDS ORDERED: ONDANSETRON INJ 2 MG/ML 2 ML VIAL IV ONE (00:05)
[2021-02-15] MEDS ORDERED: HYDROmorphone INJ 0.5 MG/0.5 ML SYR IV PRN (00:54)
[2021-02-15] MEDS ORDERED: MAGNESIUM HYDROXIDE SUSP 30 ML UDC PO PRN (00:54)
[2021-02-15] MEDS ORDERED: HYDROCODONE/ACETAMOPHEN 5/325MG TAB PO PRN (00:54)
[2021-02-15] MEDS ORDERED: bisacodyL 10 MG SUPP PR PRN (00:54)
[2021-02-15] MEDS ORDERED: GLUCAGON FOR INJ 1 MG VIAL SQ PRN (00:54)
[2021-02-15] MEDS ORDERED: GLUCOSE 10 TABS/TUBE PO PRN (00:54)
[2021-02-15] MEDS ORDERED: ONDANSETRON INJ 2 MG/ML 2 ML VIAL IV PRN ×2 (00:54→09:23)
[2021-02-15] MEDS ORDERED: GLUCOSE 40% GEL 15 GM TUBE PO PRN (00:54)
[2021-02-15] MEDS ORDERED: NALOXONE HCL 0.4 MG/1 ML VIAL/CARP IV PRN (00:54)
[2021-02-15] MEDS ORDERED: CARBOHYDRATES FOR HYPOGLYCEMIA PO PRN (00:54)
[2021-02-15] MEDS ORDERED: ACETAMINOPHEN 1000 MG/100 ML IV IV PRN (00:54)
[2021-02-15] MEDS ORDERED: DEXTROSE 50% 50 ML SYRINGE IV PRN (00:54)
[2021-02-15] MEDS: LACTATED RINGER'S 1,000 ML IV SCH ×2 (01:24→13:51)
[2021-02-15] MEDS: HYDROmorphone INJ 0.5 MG/0.5 ML SYR IV PRN ×2 (01:25→05:36)
[2021-02-15] MEDS: INSULIN ASPART 100 UNITS/ML 3 ML PEN SC SCH ×5 (05:44→20:45)
[2021-02-15 05:47] LABS: Basophils # (auto) 0.01 K/uL (0-0.2); Basophils % (auto) 0.1 %; Hematocrit (blood only) 33.1 % (37-47); Hemoglobin 11.2 g/dL (12.0-16.0); Immature Granulocytes # (auto) 0.03 K/uL (0.00-0.02); Immature Granulocytes % (auto) 0.3 %; Lymphocytes # (auto) 1.21 K/uL (1.2-3.4); Lymphocytes % (auto) 12.8 %; Mean Corpuscular Hemoglobin 29.2 pg (25-34); Mean Corpuscular Hgb Conc 33.8 g/dL (32-36); Mean Corpuscular Volume 86.2 fL (80-100); Mean Platelet Volume 11.3 fL (7.4-10.4); Monocytes # (auto) 0.79 K/uL (0.11-0.59); Monocytes % (auto) 8.4 %; Neutrophils # (auto) 7.42 K/uL (1.4-6.5); Neutrophils % (auto) 78.4 %; Platelet Count 199 K/uL (130-400); RDW Standard Deviation 41.1 fL (36.4-46.3); Red Blood Count 3.84 M/uL (4.2-5.4); White Blood Count 9.46 K/uL (4.8-10.8)
[2021-02-15 06:23] LABS: Estimated Average Glucose 128 mg/dl; Hemoglobin A1C 6.1 % (4.5-5.6)
[2021-02-15 06:24] LABS: Albumin Level 3.1 gm/dl (3.4-5.0); BUN Creatinine Ratio 35.6 (10-20); Calcium 8.2 mg/dl (8.5-10.1); Creatinine Clr Calc Pharmacy 73.1 ml/min; Est GFR (African American) 99.6; Est GFR (Non-African American) 85.9; Potassium 3.9 mmol/L (3.5-5.1)
[2021-02-15 06:27] LABS: Albumin Globulin Ratio 1.1 (0.9-2); Bilirubin,Total 0.6 mg/dl (0.2-1); Globulin 2.7 gm/dl (2.5-4.0); Total Protein 5.8 gm/dl (6.4-8.2)
[2021-02-15] MEDS ORDERED: NON-FORMULARY MEDICATION (Potassium 99 mg Tablet) PO SCH (09:00)
--- NOTE | 2021-02-15 09:04 | Electrocardiogram Report ---
Test Reason : Blood Pressure : / mmHG Vent. Rate : 092 BPM Atrial Rate : 092 BPM P-R Int : 120 ms QRS Dur : 078 ms QT Int : 374 ms P-R-T Axes : 039 010 008 degrees QTc Int : 462 ms Normal sinus rhythm Diffuse Minor Nonspecific ST abnormality Abnormal ECG No previous ECGs available Confirmed by Kain Galvez ([id number]) on 02/15/2021 9:04:15 AM Referred By: REFERRED SELF Confirmed By:Kain Galvez
[2021-02-15] MEDS ORDERED: BUPIVACAINE 0.25% 30 ML VIAL ONE (09:22)
[2021-02-15] MEDS ORDERED: EPINEPHrine INJ 1 MG/ML AMP ONE (09:22)
[2021-02-15] MEDS ORDERED: ATROPINE SULFATE 0.1 MG/ML 10ML SYR IV PRN (09:23)
[2021-02-15] MEDS ORDERED: ePHEDrine sulfate 50 MG/ML AMP IV PRN (09:23)
[2021-02-15] MEDS ORDERED: fentaNYL citrate 100 MCG/2 ML VIAL IV PRN (09:23)
--- NOTE | 2021-02-15 09:23 | Anesthesiology Consultation ---
Date of Service February 15, 2021 Assessment & Plan ASA ASA3 Proposed Anesthesia Anesthesia Type: General Risk / Benefits Reviewed With: PT / POA / Parent / Guardian, Accepts Plan and Informed Consent Obtained History Surgery Operation Date: 02/15/21 11:30 Proposed Procedures p Intramedullary Dennis Femur - Sal López, Height/Weight Height: 5 ft 3 in Weight: 77.4 kg Allergies Allergy/AdvReac Type Severity Reaction Status Date / Time No Known Allergies Allergy Verified 02/14/21 21:46 Medications Home Medications Medication Instructions Recorded Confirmed Last Taken amlodipine 5 mg PO QAM 02/14/21 02/14/21 02/14/21 atenolol 25 mg PO QAM 02/14/21 02/14/21 02/14/21 lisinopril 20 mg PO BID 02/14/21 02/14/21 02/14/21 AM DOSE multivitamin 1 tab PO QAM 02/14/21 02/14/21 02/14/21 paroxetine HCl 20 mg PO HS 02/14/21 02/14/21 02/13/21 potassium 99 mg PO QAM 02/14/21 02/14/21 02/14/21 simvastatin 20 mg PO HS 02/14/21 02/14/21 02/13/21 Active Medications Generic Name Dose Route Start Last Admin Trade Name Freq PRN Reason Stop Dose Admin Hydromorphone HCl 0.5 mg 02/15/21 00:54 02/15/21 05:36 Hydromorphone Inj 0.5 Mg/0.5 Ml Syr IV 03/01/21 00:53 0.5 mg Q3H PRN Administration Pain (6,7,8,9,10) Lactated Ringer's 1,000 mls @ 80 mls/hr 02/15/21 00:54 02/15/21 05:22 Lr IV 03/17/21 00:53 80 mls/hr .[id number] DARRION Infusion Insulin Aspart 0 units 02/15/21 06:00 02/15/21 05:44 Insulin Aspart 100 Units/Ml 3 Ml Pen SC 03/17/21 05:59 Not Given Q6 DARRION NPO Date Last Intake of Fluids: 02/14/21 Time Last Intake of Fluids: 23:59 Date Last Intake of Solids: 04/02/21 Time Last Intake of Solids: 23:59 Past Medical History Medical History Arthritis Depression Hyperlipidemia Hypertension Exercise / Class Metabolic Activity II 4-5 Yardwork/Stairs/Walk up hill Past Anesthesia History No Hx of Anesthesia Complications and No Family Hx of Anesthesia Complications History of PONV No Hx of PONV and No Hx of Motion Sickness Social History Smoking Status: Never smoker Hx Alcohol Use: No Hx Substance Use: No Review of Systems denies fever/cough/ colds/ chest pain/ SOB/ MO denies MO Physical Exam Vital Signs Last Vital Signs Temp 37.0 C 02/15/21 07:33 Pulse 95 H 02/15/21 07:33 Resp 16 02/15/21 07:33 BP 94/64 L 02/15/21 07:33 Pulse Ox 94 02/15/21 07:33 ENMT Mouth: no TMJ abnormality and no dentition abnormality Thyromental Distance: > or= 3.5 Finger Breadths Mallampati Class: II Neck neck extension not limited Respiratory normal respiratory effort; no respiratory distress Auscultation: lungs clear to auscultation bilaterally Cardiovascular Rate/Rhythm: regular rate and regular rhythm Neurologic moves all extremities Psychiatric Orientation: alert and oriented x 3 Testing Laboratory Results 02/15/21 05:23 02/15/21 05:23 PT 10.6 Seconds (9.0-12.0) 02/14/21 21:21 INR 1.0 (0.9-1.1) 02/14/21 21:21 APTT 25.7 Seconds (21.0-31.0) 02/14/21 21:21 Hemoglobin A1c 6.1 % (4.5-5.6) H 02/15/21 05:23 Urine Color Yellow 02/14/21 22:15 Urine Appearance Clear (Clear) 02/14/21 22:15 Urine pH 5.5 (4.5-7.5) 02/14/21 22:15 Ur Specific [place] 1.020 (1.000-1.030) 02/14/21 22:15 Urine Protein Negative (Negative) 02/14/21 22:15 Urine Glucose (UA) Trace (Negative) H 02/14/21 22:15 Urine Ketones Trace (Negative) H 02/14/21 22:15 Urine Nitrite Negative (Negative) 02/14/21 22:15 Ur Leukocyte Esterase Negative (Negative) 02/14/21 22:15 Blood Type O Positive 02/14/21 21:46 Antibody Screen NEGATIVE 02/14/21 21:46 02/15/21 05:35 POC Glucose 162 H
[2021-02-15] MEDS ORDERED: ePHEDrine sulfate 50 MG/ML AMP ONE (09:28)
[2021-02-15] MEDS ORDERED: PROPOFOL IV EMULSION 10 MG/ML 20 ML VIAL IV ONE (09:28)
[2021-02-15] MEDS ORDERED: PHENYLEPHRINE HCL 10 MG/ML VIAL ONE (09:28)
[2021-02-15] MEDS ORDERED: DEXAMETHASONE SOD INJ 4 MG/ML VIAL ONE (09:28)
[2021-02-15] MEDS ORDERED: GLYCOPYRROLATE 0.2 MG/ML VIAL ONE (09:28)
[2021-02-15] MEDS ORDERED: LIDOCAINE HCL 2% 2 ML VIAL/AMP(20MG/ML) INFIL ONE (09:28)
[2021-02-15] MEDS ORDERED: NEOSTIGMINE METHYLSULFATE 5 MG/5 ML SYR ONE (09:28)
[2021-02-15] MEDS ORDERED: SUCCINYLCHOLINE CHLORIDE 20 MG/ML 10 ML VIAL IV ONE (09:28)
[2021-02-15] MEDS ORDERED: MIDAZOLAM HCL 1 MG/ML 2ML VIAL ONE (09:29)
[2021-02-15] MEDS ORDERED: fentaNYL citrate 100 MCG/2 ML VIAL ONE ×2 (09:29)
[2021-02-15] MEDS ORDERED: PHENYLEPHRINE 100MCG/ML 5ML SYR ONE (10:23)
[2021-02-15] MEDS ORDERED: ceFAZolin 2000MG 2,000 MG/15 ML SYR IV ONE (10:32)
[2021-02-15] MEDS ORDERED: ROCURONIUM BROMIDE 10 MG/ML 5 ML VIAL IV ONE (11:08)
[2021-02-15] MEDS ORDERED: ERGOCALCIFEROL 50,000 UNITS 1250 MCG CAP PO SCH (11:30)
[2021-02-15] MEDS ORDERED: KETOROLAC 30 MG/ML VIAL ONE (11:42)
--- NOTE | 2021-02-15 11:47 | Fluoroscopy Report ---
FL hip RT 2-3V CLINICAL HISTORY: RIGHT trochanteric nail,right hip fracture COMPARISON STUDY: 02/14/2021 FLUOROSCOPY TIME: 160 seconds. NUMBER OF FLUOROSCOPIC IMAGES: 3 FINDINGS: 3 intraoperative fluoroscopic spot images demonstrate internal fixation of an intertrochant juan r right hip fracture with a trochanteric nail and interlocking medullary sundar IMPRESSION: Fluoroscopic spot images demonstrating internal fixation of an intertrochanteric right h ip fracture ACT 112: Negative or not required by law. Electronically signed by: Frank Hager M.D. 02/15/2021 11:45 AM
--- NOTE | 2021-02-15 11:51 | Operative Report ---
PG Post Operative Report Pre & Post Diagnosis Operation Date: 02/15/21 11:30 Pre-Op Diagnosis: Intertrochanteric fracture of the right hip Post-Op Diagnosis: Intertrochanteric fracture of the right hip I identified the patient and participated in the time-out.: Yes Procedure Operation Date: 02/15/21 11:30 Actual Procedures p intramedullary nail fixation of the right hip (Right) - Sal López DO Surgeon Sal López, Degreasing Solution Mixer Sal Arreola PAC Estimated Blood Loss 300 Findings Consistent with Post-Op Diagnosis Specimens None Complications none Disposition Disposition: Recovery Room Indications Helen is a pleasant 80-year-old female who was playing a game with her 2-year-old grandsons yesterday she fell and fractured her right hip. She came to the emergency room and was admitted to the medical service. Orthopedics was consulted to evaluate and treat. After discussions with her and her daughter at bedside, we elected to proceed with a intramedullary nail fixation of the right hip. Description of Procedure On February 15, 2021 Helen was brought down from her hospital room to the preoperative holding area. The operative extremity identified and signed. She is given a preoperative antibiotic. She was taken back to the operating room and laid on the table in supine position. She was put under general anesthesia. She was then put onto a fracture table. The right hip was then brought out to traction. Fluoroscopy was used to help obtain anatomic reduction of the right hip. Unfortunately, she had a 20 degree flexion contracture of her right knee. Also, given the character of the fracture, I was unable to reduce it on the table. The decision was made to do an open reduction of the hip fracture. The right hip was then prepped and draped in sterile fashion. A timeout was done. The patient and the operative extremity was properly identified. A longitudinal incision was made over the greater trochanter. I did about a 15 cm single incision. Dissection was taken down to the IT band and the IT band was opened up. I was able to easily get around to the medial calcar. A bone hook was placed. I was then able to reduce the fracture. Fluoroscopy confirmed anatomic reduction with the bone hook in place. A guidepin was then placed at the tip of the greater trochanter and advanced into the femoral canal. A 17 mm opening reamer was then used. A guidepin was then placed down the femoral canal. Sequential reaming up to a size 12 reamer was done. A 12 mm Synthes TFN short nail was then impacted into place. Appropriate placement was checked under fluoroscopy. Reduction with the bone hook was held at all times. A cannula was then advanced to the lateral cortex of the femur. A guidepin was placed through the nail and into the center center position of the femoral head. The helical blade measured to be 90 mm. The lateral cortex was then drilled. The helical blade was then drilled. The final 90 mm helical blade was then impacted into place. Once again, the bone plug held reduction throughout the placement of the lag screw. The lag screw was then tightened and compressed. A cannula was then advanced to the lateral femur for the distal locking screw. The 5 mm locking screw was then drilled and then placed. I was happy with the overall tightening of the screw and the overall reduction. Final fluoroscopic images showed anatomic alignment of the fracture. The bone hook was removed. The wound was then irrigated. The fascia was then closed with #1 Vicryl suture. Deep fat layer was closed with 2-0 Vicryl. Skin was closed with 2-0 Vicryl and felipe. She was then placed in a soft compressive dressing. She was then extubated and transferred to a hospital bed. She was taken to the postanesthesia care unit in stable condition. She tolerated the procedure well. Sal Arreola PA-C, was present for the entire procedure. He was critical for patient positioning, prepping, draping, retraction exposure, wound closure and application of sterile dressing. I attest to the content of the Intraoperative Record and any orders documented therein. Any exceptions are noted below.
--- NOTE | 2021-02-15 12:33 | Anesthesiology Progress Note ---
Date of Service February 15, 2021 Anesthesia Post Procedure Vital Signs Vital Signs: Temp Pulse Pulse Pulse Resp BP BP 02/15/21 12:30 104 H 16 95/60 L 02/15/21 12:20 109 H 16 95/61 L 02/15/21 12:10 109 H 20 104/70 02/15/21 12:01 37.0 C 116 H 20 144/84 H 02/15/21 07:33 37.0 C 95 H 16 94/64 L 02/15/21 01:26 84 118/71 02/15/21 00:30 37.0 C 20 156/90 H 02/15/21 00:06 83 16 122/70 02/14/21 23:30 94 H 22 129/79 02/14/21 23:00 94 H 21 152/89 H 02/14/21 22:30 94 H 21 144/87 H 02/14/21 22:00 93 H 18 158/90 H 02/14/21 21:30 102 H 18 167/104 H 02/14/21 21:02 37.2 C 99 H 18 173/95 H 02/14/21 21:00 95 H 17 182/109 H Pulse Ox 02/15/21 12:30 94 02/15/21 12:20 100 02/15/21 12:10 97 02/15/21 12:01 100 02/15/21 07:33 94 02/15/21 01:26 02/15/21 00:30 96 02/15/21 00:06 95 02/14/21 23:30 95 02/14/21 23:00 96 02/14/21 22:30 96 02/14/21 22:00 96 02/14/21 21:30 96 02/14/21 21:02 97 02/14/21 21:00 97 Pain Intensity Right Hip: Pain Intensity: 0 Transfer of Care Handoff Completed per policy Notes Mental Status: alert / awake / arousable and participated in evaluation Patient Amnestic to Procedure: Yes Nausea / Vomiting: adequately controlled Pain: adequately controlled Airway Patency, RR, SpO2: stable & adequate BP & HR: stable & adequate Hydration State: stable & adequate Anesthetic Complications: no major complications apparent and Pt Satisfied with anesthetic care
[2021-02-15] MEDS ORDERED: Nursing to Pharmacy Communication SCH (12:45)
--- NOTE | 2021-02-15 12:56 | XRay Report ---
XR hip RT min 2V CLINICAL HISTORY: Post-Operative implant position HIP FRACTURE STATUS POST INTERNAL FIXATION COMPARISON: 02/14/2021 DISCUSSION: There is an intertrochanteric right hip fracture which has been fixated with a trochanter ic nail and interlocking medullary sundar. The lesser trochanteric fragment is displaced by 3 cm. The in tertrochanteric fracture line demonstrates 7 mm of maximal distraction. IMPRESSION: Internally fixated intertrochanteric right hip fracture. ACT 112: Negative or not required by law. Electronically signed by: Frank Hager M.D. 02/15/2021 12:54 PM
[2021-02-15] MEDS: lisinopril 20 MG TAB PO SCH ×2 (13:14→20:08)
[2021-02-15] MEDS: ATENOLOL 25 MG TABLET PO SCH (13:14)
[2021-02-15] MEDS: amLODIPine BESYLATE 5 MG TAB PO SCH (13:14)
[2021-02-15] MEDS: MULTIVITAMIN TAB PO SCH (13:28)
--- NOTE | 2021-02-15 13:46 | Hospitalist Progress Note ---
Date of Service February 15, 2021 Assessment & Plan (1) Intertrochanteric fracture of right hip: 80-year-old female with past medical history hypertension, depression, Hyperlipidemia, arthritis presents after a fall at home with subsequent right hip fracture. Intertrochanteric fracture right hip Status post intramedullary nail fixation of the right hip / -As needed p.o. acetaminophen, p.o. [place], IV Dilaudid for mild, moderate, severe pain P.o. vitamin D and calcium supplementation started. Can order vitamin D level as an outpatient. Likely need bisphosphonate therapy down the line PT OT evals ordered Hypertension -Continue amlodipine, atenolol and lisinopril with hold parameters Hyperlipidemia -Continue simvastatin 20 mg at bedtime Depression Con-tinue paroxetine 20 mg at bedtime Hyperglycemia -hemoglobin A1c 6.1 this admission -Placed on Accu-Cheks before meals and at bedtime with NovoLog coverage per scale -Not on any current diabetic treatments as outpatient FEN/GI: DM 2 diet DVT prophylaxis: Lovenox SQ CODE STATUS: Full code Dispo: MedSurg. PT OT eval is pending Admission and Anticipated Discharge Date Admission Date: February 14, 2021 Supervising Physician Co-Signing Physician Notes I personally examined the patient and verified all mccarthy points of history and exam, discussed case, and agree with decision making with Dr Anton Feeling okay postop, just somewhat sore. No new complaints otherwise. Reiterates no real trauma, was playing ring around the [place] with her 2-year-old great grandson, and then broke her hip. Does not recall when her last DEXA scan was, and while she does get lab work regularly, she is not able to recall a vitamin D level. Vitals noted, in general she is awake and alert pleasant no distress. HEENT normocephalic atraumatic mucous membranes moist. Breathing unlabored no accessory muscle use good effort. Skin shows no rashes no pallor or icterus. Neuro shows no focal deficits Osteoporotic hip fracturestable postop. Supplement calcium and vitamin D, check vitamin D level as an outpatient, anticipate initiating bisphosphonate in about a months. PT OT eval and treat, possible rehab placement. Otherwise as above Subjective 80 yo F in OR this AM. Seen afterwards. Pain controlled. No nausea vomiting. Tolerating PO. No other acute concerns or complaints. Review of Systems Review of Systems: All systems reviewed & are unremarkable except as noted in HPI & below Physical Exam Constitutional: WD/WN, vitals as above Eyes: PERRL, conjunctivae normal, anicteric sclerae ENMT: external ear and nose normal, oropharynx normal Respiratory: normal respiratory effort, lungs clear to auscultation Cardiovascular: RRR, no murmur, no edema Gastrointestinal (Abdomen): normal bowel sounds, soft, nontender, no hepatosplenomegaly Musculoskeletal: Extremities: + leg externally rotated (RLE shortened and ER) Skin: no rashes, warm and dry Neurologic: Motor/Sensory: no sensory deficit Psychiatric: A+Ox3, euthymic affect Results & Data Results & Data ([facility]) Vital Signs (Past 12 Hours) Vital Signs Temp Pulse Pulse Resp BP Pulse Ox 02/15/21 13:20 36.4 C L 110 H 18 90/60 L 92 02/15/21 13:00 96 02/15/21 12:50 36.6 C 109 H 16 93/57 L 98 02/15/21 12:40 36.6 C 104 H 16 108/58 L 98 02/15/21 12:30 104 H 16 95/60 L 94 02/15/21 12:20 109 H 16 95/61 L 100 02/15/21 12:10 109 H 20 104/70 97 02/15/21 12:01 37.0 C 116 H 20 144/84 H 100 02/15/21 07:33 37.0 C 95 H 16 94/64 L 94 Laboratory Results Laboratory Results - last 24 hr 02/14/21 02/14/21 02/14/21 21:21 21:21 21:21 WBC 10.83 H RBC 4.70 Hgb 13.7 Hct 40.2 MCV 85.5 MCH 29.1 MCHC 34.1 RDW Std Deviation 40.4 RDW Coeff of Adolfo 12.8 Plt Count 216 MPV 11.1 H Immature Gran % (Auto) 0.3 Neut % (Auto) 76.8 Lymph % (Auto) 12.9 [place] % (Auto) 9.0 Eos % (Auto) 0.7 Baso % (Auto) 0.3 Neut # (Auto) 8.32 H Lymph # (Auto) 1.40 [place] # (Auto) 0.97 H Eos # (Auto) 0.08 Baso # (Auto) 0.03 Immature Gran # (Auto) 0.03 H PT 10.6 INR 1.0 APTT 25.7 PTT Ratio 1.0 Sodium 140 Potassium 3.8 Chloride 109 H Carbon Dioxide 26 Anion Gap 4.0 BUN 19 H Creatinine 0.83 Est Cr Clr Drug Dosing 55.5 Est GFR ( Amer) 78.3 Est GFR (Non-Af Amer) 67.5 BUN/Creatinine Ratio 22.3 H Glucose 206 H POC Glucose Estimat Average Glucose Hemoglobin A1c Calcium 9.1 Total Bilirubin 0.3 AST 19 ALT 23 Alkaline Phosphatase 132 H Total Protein 6.8 Albumin 3.9 Globulin 2.9 Albumin/Globulin Ratio 1.3 Specimen Hemolysis Urine Color Urine Appearance Urine pH Ur Specific [place] Urine Protein Urine Glucose (UA) Urine Ketones Urine Blood Urine Nitrite Urine Bilirubin Urine Urobilinogen Ur Leukocyte Esterase COVID-19 Eval Order SARS-CoV-2 (PCR) Influenza Type A (PCR) Influenza Type B (PCR) RSV (RT-PCR) Blood Type Antibody Screen 02/14/21 02/14/21 02/14/21 21:23 21:23 21:46 WBC RBC Hgb Hct MCV MCH MCHC RDW Std Deviation RDW Coeff of Adolfo Plt Count MPV Immature Gran % (Auto) Neut % (Auto) Lymph % (Auto) [place] % (Auto) Eos % (Auto) Baso % (Auto) Neut # (Auto) Lymph # (Auto) [place] # (Auto) Eos # (Auto) Baso # (Auto) Immature Gran # (Auto) PT INR APTT PTT Ratio Sodium Potassium Chloride Carbon Dioxide Anion Gap BUN Creatinine Est Cr Clr Drug Dosing Est GFR ( Amer) Est GFR (Non-Af Amer) BUN/Creatinine Ratio Glucose POC Glucose Estimat Average Glucose Hemoglobin A1c Calcium Total Bilirubin AST ALT Alkaline Phosphatase Total Protein Albumin Globulin Albumin/Globulin Ratio Specimen Hemolysis Urine Color Urine Appearance Urine pH Ur Specific [place] Urine Protein Urine Glucose (UA) Urine Ketones Urine Blood Urine Nitrite Urine Bilirubin Urine Urobilinogen Ur Leukocyte Esterase COVID-19 Eval Order CovFluRsv at [facility] SARS-CoV-2 (PCR) NEGATIVE Influenza Type A (PCR) Negative Influenza Type B (PCR) Negative RSV (RT-PCR) Negative Blood Type O Positive Antibody Screen NEGATIVE 02/14/21 02/15/21 02/15/21 22:15 05:23 05:23 WBC 9.46 RBC 3.84 L Hgb 11.2 L Hct 33.1 L MCV 86.2 MCH 29.2 MCHC 33.8 RDW Std Deviation 41.1 RDW Coeff of Adolfo 13.0 Plt Count 199 MPV 11.3 H Immature Gran % (Auto) 0.3 Neut % (Auto) 78.4 Lymph % (Auto) 12.8 [place] % (Auto) 8.4 Eos % (Auto) 0.0 Baso % (Auto) 0.1 Neut # (Auto) 7.42 H Lymph # (Auto) 1.21 [place] # (Auto) 0.79 H Eos # (Auto) 0.00 Baso # (Auto) 0.01 Immature Gran # (Auto) 0.03 H PT INR APTT PTT Ratio Sodium 141 Potassium 3.9 Chloride 110 H Carbon Dioxide 27 Anion Gap 4.0 BUN 22 H Creatinine 0.63 Est Cr Clr Drug Dosing 73.1 Est GFR ( Amer) 99.6 Est GFR (Non-Af Amer) 85.9 BUN/Creatinine Ratio 35.6 H Glucose 155 H POC Glucose Estimat Average Glucose Hemoglobin A1c Calcium 8.2 L Total Bilirubin 0.6 AST 13 L ALT 19 Alkaline Phosphatase 97 Total Protein 5.8 L Albumin 3.1 L Globulin 2.7 Albumin/Globulin Ratio 1.1 Specimen Hemolysis Urine Color Yellow Urine Appearance Clear Urine pH 5.5 Ur Specific [place] 1.020 Urine Protein Negative Urine Glucose (UA) Trace H Urine Ketones Trace H Urine Blood Negative Urine Nitrite Negative Urine Bilirubin Negative Urine Urobilinogen Negative Ur Leukocyte Esterase Negative COVID-19 Eval Order SARS-CoV-2 (PCR) Influenza Type A (PCR) Influenza Type B (PCR) RSV (RT-PCR) Blood Type Antibody Screen 02/15/21 02/15/21 02/15/21 05:23 05:35 12:51 WBC RBC Hgb Hct MCV MCH MCHC RDW Std Deviation RDW Coeff of Adolfo Plt Count MPV Immature Gran % (Auto) Neut % (Auto) Lymph % (Auto) [place] % (Auto) Eos % (Auto) Baso % (Auto) Neut # (Auto) Lymph # (Auto) [place] # (Auto) Eos # (Auto) Baso # (Auto) Immature Gran # (Auto) PT INR APTT PTT Ratio Sodium Potassium Chloride Carbon Dioxide Anion Gap BUN Creatinine Est Cr Clr Drug Dosing Est GFR ( Amer) Est GFR (Non-Af Amer) BUN/Creatinine Ratio Glucose POC Glucose 162 H 165 H Estimat Average Glucose 128 Hemoglobin A1c 6.1 H Calcium Total Bilirubin AST ALT Alkaline Phosphatase Total Protein Albumin Globulin Albumin/Globulin Ratio Specimen Hemolysis Urine Color Urine Appearance Urine pH Ur Specific [place] Urine Protein Urine Glucose (UA) Urine Ketones Urine Blood Urine Nitrite Urine Bilirubin Urine Urobilinogen Ur Leukocyte Esterase COVID-19 Eval Order SARS-CoV-2 (PCR) Influenza Type A (PCR) Influenza Type B (PCR) RSV (RT-PCR) Blood Type Antibody Screen Medications Administered Current Inpatient Medications Acetaminophen (Acetaminophen 1000 Mg/100 Ml Iv) 1,000 mg IV Q8H PRN PRN Reason: Pain or Fever Stop: 02/18/21 00:53 Hydrocodone Bitart/Acetaminophen (Hydrocodone/Acetamophen 5/325mg Tab) 1 tab PO Q4H PRN PRN Reason: MODERATE Pain (4,5,6) & Pre PT Stop: 03/01/21 00:53 Hydrocodone Bitart/Acetaminophen (Hydrocodone/Acetamophen 5/325mg Tab) 2 tab PO Q4H PRN PRN Reason: SEVERE Pain (7,8,9,10) Stop: 03/01/21 00:53 Amlodipine Besylate (Amlodipine Besylate 5 Mg Tab) 5 mg PO QAM [facility] Stop: 03/17/21 08:59 Last Admin: 02/15/21 13:14 Dose: Not Given Documented by: Atenolol (Atenolol 25 Mg Tablet) 25 mg PO QAM [facility] Stop: 03/17/21 08:59 Last Admin: 02/15/21 13:14 Dose: Not Given Documented by: Bisacodyl (Bisacodyl 10 Mg Supp) 10 mg [place] DAILY PRN PRN Reason: Constipation Stop: 03/17/21 00:53 Calcium Carbonate (Calcium Carbonate 1250mg Tab) 500 mg PO TID [facility] Stop: 03/17/21 13:59 Dextrose (Dextrose 50% 50 Ml Syringe) 25 - 50 ml IV UD PRN; Protocol PRN Reason: Hypoglycemia Protocol Stop: 03/17/21 00:53 Enoxaparin Sodium (Enoxaparin Inj 40 Mg/0.4 Ml Syr) 40 mg SQ Q24H [facility] Stop: 03/18/21 06:59 Ergocalciferol (Ergocalciferol 50,000 Units 1250 Mcg Cap) 50,000 units PO Sa@0900 [facility] Stop: 03/17/21 08:59 Last Admin: 02/15/21 13:28 Dose: 50,000 units Documented by: Glucagon (Glucagon For Inj 1 Mg Vial) 1 mg SQ UD PRN; Protocol PRN Reason: Hypoglycemia Protocol Stop: 03/17/21 00:53 Glucose (Glucose 10 Tabs/Tube) 4 - 8 tabs PO UD PRN; Protocol PRN Reason: Hypoglycemia Protocol Stop: 03/17/21 00:53 Glucose (Glucose 40% Gel 15 Gm Tube) 15 - 30 gm PO UD PRN; Protocol PRN Reason: Hypoglycemia Protocol Stop: 03/17/21 00:53 Hydromorphone HCl (Hydromorphone Inj 0.5 Mg/0.5 Ml Syr) 0.25 mg IV Q3H PRN PRN Reason: Pain (1,2,3,4,5) & Pre PT Stop: 03/01/21 00:53 Hydromorphone HCl (Hydromorphone Inj 0.5 Mg/0.5 Ml Syr) 0.5 mg IV Q3H PRN PRN Reason: Pain (6,7,8,9,10) Stop: 03/01/21 00:53 Last Admin: 02/15/21 05:36 Dose: 0.5 mg Documented by: Lactated Ringer's (Lr) 1,000 mls @ 80 mls/hr IV .[id number] [facility] Stop: 03/17/21 00:53 Last Infusion: 02/15/21 12:50 Dose: 80 mls/hr Documented by: Insulin Aspart (Insulin Aspart 100 Units/Ml 3 Ml Pen) 0 units SC ACHS [facility] Stop: 03/17/21 12:44 Lisinopril (Lisinopril 20 Mg Tab) 20 mg PO BID [facility] Stop: 03/17/21 08:59 Last Admin: 02/15/21 13:14 Dose: Not Given Documented by: Magnesium Hydroxide (Magnesium Hydroxide Susp 30 Ml Udc) 30 ml PO DAILY PRN PRN Reason: Constipation Stop: 03/17/21 00:53 Miscellaneous (Carbohydrates For Hypoglycemia ) 15 - 30 gm PO UD PRN PRN Reason: Hypoglycemia Protocol Stop: 03/17/21 00:53 Multivitamins (Multivitamin Tab) 1 tab PO QAM [facility] Stop: 03/17/21 08:59 Last Admin: 02/15/21 13:28 Dose: 1 tab Documented by: Naloxone HCl (Naloxone Hcl 0.4 Mg/1 Ml Vial/Carp) 0.1 mg IV UD PRN PRN Reason: Opiate Overdose Stop: 03/17/21 00:53 Ondansetron HCl (Ondansetron Inj 2 Mg/Ml 2 Ml Vial) 4 mg IV Q6H PRN PRN Reason: Nausea Stop: 03/17/21 00:53 Paroxetine HCl (Paroxetine Hcl 20 Mg Tab) 20 mg PO HS [facility] Stop: 03/17/21 20:59 Senna/Docusate Sodium (Docusate Sodium/Senna 50/8.6mg Tab) 2 tab PO HS [facility] Stop: 03/17/21 20:59 Simvastatin (Simvastatin 20 Mg Tab) 20 mg PO HS [facility] Stop: 03/17/21 20:59 Vitamin D (Cholecalciferol 1,000 Units 25 Mcg Tab) 2,000 units PO QAM [facility] Stop: 03/18/21 08:59 Resident Activity Tracking Resident Involvement: Resident Care Provided Care Provided: Adult Hospital Medicine (1) Intertrochanteric fracture of right hip Encounter type: initial encounter Fracture alignment: nondisplaced Fracture type: closed Qualified Code(s): S72.144A - Nondisplaced intertrochanteric fracture of right femur, initial encounter for closed fracture
[2021-02-15] MEDS: CALCIUM CARBONATE 1250MG TAB PO SCH ×2 (14:10→20:09)
--- NOTE | 2021-02-15 16:14 | Billing Data ---
Date of Service February 15, 2021 Coding Level of Care Code 16309 Subseq Hosp Care Lvl 2
[2021-02-15] MEDS: HYDROCODONE/ACETAMOPHEN 5/325MG TAB PO PRN (20:05)
[2021-02-15] MEDS: SIMVASTATIN 20 MG TAB PO SCH (20:08)
[2021-02-15] MEDS: DOCUSATE SODIUM/SENNA 50/8.6MG TAB PO SCH (20:09)
[2021-02-15] MEDS: PARoxetine HCL 20 MG TAB PO SCH (20:09)
[2021-02-16] MEDS: LACTATED RINGER'S 1,000 ML IV SCH (02:17)
[2021-02-16] MEDS: ENOXAPARIN INJ 40 MG/0.4 ML SYR SQ SCH (05:38)
[2021-02-16 06:10] LABS: Basophils # (auto) 0.01 K/uL (0-0.2); Basophils % (auto) 0.1 %; Hematocrit (blood only) 23.6 % (37-47); Hemoglobin 8.2 g/dL (12.0-16.0); Immature Granulocytes # (auto) 0.02 K/uL (0.00-0.02); Immature Granulocytes % (auto) 0.2 %; Lymphocytes # (auto) 1.61 K/uL (1.2-3.4); Lymphocytes % (auto) 15.3 %; Mean Corpuscular Hemoglobin 29.9 pg (25-34); Mean Corpuscular Hgb Conc 34.7 g/dL (32-36); Mean Corpuscular Volume 86.1 fL (80-100); Monocytes # (auto) 1.43 K/uL (0.11-0.59); Monocytes % (auto) 13.6 %; Neutrophils # (auto) 7.48 K/uL (1.4-6.5); Neutrophils % (auto) 70.8 %; Platelet Count 180 K/uL (130-400); RDW Coefficient of Variation 13.4 % (11.5-14.5); RDW Standard Deviation 42.4 fL (36.4-46.3); Red Blood Count 2.74 M/uL (4.2-5.4); White Blood Count 10.55 K/uL (4.8-10.8)
[2021-02-16 06:36] LABS: Albumin Level 2.8 gm/dl (3.4-5.0); BUN Creatinine Ratio 19.8 (10-20); Calcium 8.2 mg/dl (8.5-10.1); Creatinine Clr Calc Pharmacy 54.4 ml/min; Est GFR (African American) 77.2; Est GFR (Non-African American) 66.6
[2021-02-16 06:39] LABS: Albumin Globulin Ratio 1.1 (0.9-2); Bilirubin,Total 0.8 mg/dl (0.2-1); Globulin 2.5 gm/dl (2.5-4.0); Total Protein 5.3 gm/dl (6.4-8.2)
[2021-02-16] MEDS: lisinopril 20 MG TAB PO SCH ×2 (08:08→20:43)
[2021-02-16] MEDS: ATENOLOL 25 MG TABLET PO SCH (08:09)
[2021-02-16] MEDS: CHOLECALCIFEROL 1,000 UNITS 25 MCG TAB PO SCH (08:09)
[2021-02-16] MEDS: CALCIUM CARBONATE 1250MG TAB PO SCH ×3 (08:09→20:42)
[2021-02-16] MEDS: amLODIPine BESYLATE 5 MG TAB PO SCH (08:09)
[2021-02-16] MEDS: MULTIVITAMIN TAB PO SCH (08:09)
--- NOTE | 2021-02-16 08:50 | Orthopedic Progress Note ---
Date of Service February 16, 2021 Assessment & Plan (1) Intertrochanteric fracture of right hip: Overall she doing very well. Her H&H is a little bit low this morning and we will see how she responds. She will be on Lovenox 40 mg subcu daily for 4 weeks for DVT prophylaxis. Full orthopedic discharge instructions were placed in the discharge summary. She told me that she would like to return home. Angy Cervantes was seen and examined at bedside this morning. She is actually doing very well. She is having too much pain in the right hip. She has been up and ambulating. She is sitting at a chair at bedside this morning eating breakfast. She has no complaints.. Review of Systems All systems reviewed & are unremarkable except as noted in HPI & below. Physical Exam Physical examination of the right hip shows the dressing to be clean and dry. Her leg lengths are equal. She has active dorsiflexion and plantarflexion of her right ankle.. Results & Data Results & Data Laboratory Results . Diagnostic Findings Postoperative x-rays of the right hip show the hardware to be in good alignment with acceptable alignment of the fracture.. PG Care Time/CCT Total # of Minutes Spent Total Time Spent with Patient: Total time spent is greater than 50% in coordination of care (as documented) at patient's floor/unit and/or counseling patient: Coding Level of Care Code 46825 Post Operative Follow-Up Diagnoses Intertrochanteric fracture of right hip S72.144A Encounter type: initial encounter Fracture alignment: nondisplaced Fracture type: closed (1) Intertrochanteric fracture of right hip Encounter type: initial encounter Fracture alignment: nondisplaced Fracture type: closed Qualified Code(s): S72.144A - Nondisplaced intertrochanteric fracture of right femur, initial encounter for closed fracture
[2021-02-16] MEDS: INSULIN ASPART 100 UNITS/ML 3 ML PEN SC SCH ×4 (09:25→21:19)
--- NOTE | 2021-02-16 12:57 | Hospitalist Progress Note ---
Date of Service February 16, 2021 Assessment & Plan (1) Intertrochanteric fracture of right hip: 80-year-old female with past medical history hypertension, depression, Hyperlipidemia, arthritis presents after a fall at home with subsequent right hip fracture. Intertrochanteric fracture right hip Status post intramedullary nail fixation of the right hip 02/15 -As needed p.o. acetaminophen, p.o. [place], IV Dilaudid for mild, moderate, severe pain P.o. vitamin D and calcium supplementation started. Can order vitamin D level as an outpatient. Likely need bisphosphonate therapy down the line. Unsure if has had outpatient DEXA Lovenox SQ 40 mg for DVT prophylaxis. Will need to continue this for 4 weeks PT OT evals ordered--recommend discharge to acute rehab. Patient requesting to go directly home, will consider sending home with home-based PT tomorrow. Anemia Hemoglobin 8.2 this a.m., about a five-point drop from admission EBL from orthopedic surgery estimated at 300 mL. Perhaps aspect of dilutional as well Patient is asymptomatic thankfully. However we will keep patient here another day and see blood count in a.m. Ferrous sulfate twice daily started Hypertension -Continue amlodipine, atenolol and lisinopril with hold parameters Hyperlipidemia -Continue simvastatin 20 mg at bedtime Depression Con-tinue paroxetine 20 mg at bedtime Hyperglycemia -hemoglobin A1c 6.1 this admission -Placed on Accu-Cheks before meals and at bedtime with NovoLog coverage per scale -Not on any current diabetic treatments as outpatient FEN/GI: DM 2 diet DVT prophylaxis: Lovenox SQ CODE STATUS: Full code Dispo: MedSurg. Acute rehab versus home with home based PT. 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 I agree w/ the mccarthy components of his documentation except - 1. added acute blood loss anemia to problem list 2. added pathological fracture of hip due to age-related osteoporosis 3. fever With respect to #3 - patient states she has mild cough, started today. But she also reports a cough quite frequently at home. Has not received COVID vaccine. Lives with multiple young grand-children and her daughter/son-in-law. None have been sick to her knowledge. She doesn't feel ill. She denies chills, fatigue, dyspnea, or myalgias. Passing flatus, no stool yet. No diarrhea. Tm 38.4 other vitals stable O2 sats low 90s in RA gen - NAD, not sickly appearing mouth - MMM heart - RRR, s1 s2 lung - CTA b/l; no rales or wheeze abd - soft NT ND BS+ ext - right thigh with marked swelling; pulses 2+ b/l skin - dressings intact right lateral hip A/P: 1. right hip fracture s/p ORIF - pod #1 - pain reasonably controlled DVT proph - lovenox x 30 days PT, OT wants to return home - multiple people have encouraged rehab, she is adamant about d/c home check 25-OH vit D while here 2. fever - low threshold for repeat COVID testing; could simply be post-op inflammatory response. If fever persists - obtain cultures, cxr, doppler RLE, etc 3. acute blood loss anemia - start Fe bid; cbc in am. Bowel regimen Ezekiel Lino MD Subjective Patient seen this a.m. bedside. No acute overnight events. Patient has no concerns or complaints. Eager to go home. Denies any significant pain. P.o. intake. Denies any nausea vomiting. Able to work with therapy this morning. Review of Systems Review of Systems: All systems reviewed & are unremarkable except as noted in HPI & below Physical Exam Constitutional: WD/WN, vitals as above Eyes: PERRL, conjunctivae normal, anicteric sclerae ENMT: external ear and nose normal, oropharynx normal Respiratory: normal respiratory effort, lungs clear to auscultation Cardiovascular: RRR, no murmur, no edema Gastrointestinal (Abdomen): normal bowel sounds, soft, nontender, no hepatosplenomegaly Musculoskeletal: Right hip with bandages CDI Skin: no rashes, warm and dry Neurologic: Motor/Sensory: no sensory deficit Psychiatric: A+Ox3, euthymic affect Results & Data Results & Data ([facility]) Vital Signs (Past 12 Hours) Vital Signs Temp Pulse Resp BP Pulse Ox 02/16/21 11:23 37.3 C 93 H 18 107/69 92 02/16/21 07:23 36.8 C 119 H 16 111/70 95 02/16/21 05:34 37.1 C 110 H 18 112/74 97 Laboratory Results Laboratory Results - last 24 hr 02/15/21 02/15/21 02/15/21 12:51 17:24 20:17 WBC RBC Hgb Hct MCV MCH MCHC RDW Std Deviation RDW Coeff of Adolfo Plt Count MPV Immature Gran % (Auto) Neut % (Auto) Lymph % (Auto) [place] % (Auto) Eos % (Auto) Baso % (Auto) Neut # (Auto) Lymph # (Auto) [place] # (Auto) Eos # (Auto) Baso # (Auto) Immature Gran # (Auto) Sodium Potassium Chloride Carbon Dioxide Anion Gap BUN Creatinine Est Cr Clr Drug Dosing Est GFR ( Amer) Est GFR (Non-Af Amer) BUN/Creatinine Ratio Glucose POC Glucose 165 H 266 H 226 H Calcium Total Bilirubin AST ALT Alkaline Phosphatase Total Protein Albumin Globulin Albumin/Globulin Ratio 02/16/21 02/16/21 02/16/21 05:47 05:47 08:13 WBC 10.55 RBC 2.74 L Hgb 8.2 L D Hct 23.6 L MCV 86.1 MCH 29.9 MCHC 34.7 RDW Std Deviation 42.4 RDW Coeff of Adolfo 13.4 Plt Count 180 MPV 11.0 H Immature Gran % (Auto) 0.2 Neut % (Auto) 70.8 Lymph % (Auto) 15.3 [place] % (Auto) 13.6 Eos % (Auto) 0.0 Baso % (Auto) 0.1 Neut # (Auto) 7.48 H Lymph # (Auto) 1.61 [place] # (Auto) 1.43 H Eos # (Auto) 0.00 Baso # (Auto) 0.01 Immature Gran # (Auto) 0.02 Sodium 139 Potassium 4.0 Chloride 108 H Carbon Dioxide 27 Anion Gap 4.0 BUN 17 Creatinine 0.84 Est Cr Clr Drug Dosing 54.4 Est GFR ( Amer) 77.2 Est GFR (Non-Af Amer) 66.6 BUN/Creatinine Ratio 19.8 Glucose 147 H POC Glucose 134 H Calcium 8.2 L Total Bilirubin 0.8 AST 23 ALT 19 Alkaline Phosphatase 72 Total Protein 5.3 L Albumin 2.8 L Globulin 2.5 Albumin/Globulin Ratio 1.1 02/16/21 12:10 WBC RBC Hgb Hct MCV MCH MCHC RDW Std Deviation RDW Coeff of Adolfo Plt Count MPV Immature Gran % (Auto) Neut % (Auto) Lymph % (Auto) [place] % (Auto) Eos % (Auto) Baso % (Auto) Neut # (Auto) Lymph # (Auto) [place] # (Auto) Eos # (Auto) Baso # (Auto) Immature Gran # (Auto) Sodium Potassium Chloride Carbon Dioxide Anion Gap BUN Creatinine Est Cr Clr Drug Dosing Est GFR ( Amer) Est GFR (Non-Af Amer) BUN/Creatinine Ratio Glucose POC Glucose 130 H Calcium Total Bilirubin AST ALT Alkaline Phosphatase Total Protein Albumin Globulin Albumin/Globulin Ratio Medications Administered Current Inpatient Medications Acetaminophen (Acetaminophen 1000 Mg/100 Ml Iv) 1,000 mg IV Q8H PRN PRN Reason: Pain or Fever Stop: 02/18/21 00:53 Hydrocodone Bitart/Acetaminophen (Hydrocodone/Acetamophen 5/325mg Tab) 1 tab PO Q4H PRN PRN Reason: MODERATE Pain (4,5,6) & Pre PT Stop: 03/01/21 00:53 Last Admin: 02/15/21 20:05 Dose: 1 tab Documented by: Hydrocodone Bitart/Acetaminophen (Hydrocodone/Acetamophen 5/325mg Tab) 2 tab PO Q4H PRN PRN Reason: SEVERE Pain (7,8,9,10) Stop: 03/01/21 00:53 Amlodipine Besylate (Amlodipine Besylate 5 Mg Tab) 5 mg PO QAM [facility] Stop: 03/17/21 08:59 Last Admin: 02/16/21 08:09 Dose: 5 mg Documented by: Atenolol (Atenolol 25 Mg Tablet) 25 mg PO QAM [facility] Stop: 03/17/21 08:59 Last Admin: 02/16/21 08:09 Dose: 25 mg Documented by: Bisacodyl (Bisacodyl 10 Mg Supp) 10 mg TX DAILY PRN PRN Reason: Constipation Stop: 03/17/21 00:53 Calcium Carbonate (Calcium Carbonate 1250mg Tab) 500 mg PO TID [facility] Stop: 03/17/21 13:59 Last Admin: 02/16/21 08:09 Dose: 500 mg Documented by: Dextrose (Dextrose 50% 50 Ml Syringe) 25 - 50 ml IV UD PRN; Protocol PRN Reason: Hypoglycemia Protocol Stop: 03/17/21 00:53 Enoxaparin Sodium (Enoxaparin Inj 40 Mg/0.4 Ml Syr) 40 mg SQ Q24H [facility] Stop: 03/18/21 06:59 Last Admin: 02/16/21 05:38 Dose: 40 mg Documented by: Ergocalciferol (Ergocalciferol 50,000 Units 1250 Mcg Cap) 50,000 units PO Sa@0900 [facility] Stop: 03/17/21 08:59 Last Admin: 02/15/21 13:28 Dose: 50,000 units Documented by: Glucagon (Glucagon For Inj 1 Mg Vial) 1 mg SQ UD PRN; Protocol PRN Reason: Hypoglycemia Protocol Stop: 03/17/21 00:53 Glucose (Glucose 10 Tabs/Tube) 4 - 8 tabs PO UD PRN; Protocol PRN Reason: Hypoglycemia Protocol Stop: 03/17/21 00:53 Glucose (Glucose 40% Gel 15 Gm Tube) 15 - 30 gm PO UD PRN; Protocol PRN Reason: Hypoglycemia Protocol Stop: 03/17/21 00:53 Hydromorphone HCl (Hydromorphone Inj 0.5 Mg/0.5 Ml Syr) 0.25 mg IV Q3H PRN PRN Reason: Pain (1,2,3,4,5) & Pre PT Stop: 03/01/21 00:53 Hydromorphone HCl (Hydromorphone Inj 0.5 Mg/0.5 Ml Syr) 0.5 mg IV Q3H PRN PRN Reason: Pain (6,7,8,9,10) Stop: 03/01/21 00:53 Last Admin: 02/15/21 05:36 Dose: 0.5 mg Documented by: Insulin Aspart (Insulin Aspart 100 Units/Ml 3 Ml Pen) 0 units SC ACHS [facility] Stop: 03/17/21 12:44 Last Admin: 02/16/21 12:49 Dose: 2 units Documented by: Lisinopril (Lisinopril 20 Mg Tab) 20 mg PO BID [facility] Stop: 03/17/21 08:59 Last Admin: 02/16/21 08:08 Dose: 20 mg Documented by: Magnesium Hydroxide (Magnesium Hydroxide Susp 30 Ml Udc) 30 ml PO DAILY PRN PRN Reason: Constipation Stop: 03/17/21 00:53 Miscellaneous (Carbohydrates For Hypoglycemia ) 15 - 30 gm PO UD PRN PRN Reason: Hypoglycemia Protocol Stop: 03/17/21 00:53 Multivitamins (Multivitamin Tab) 1 tab PO QAM [facility] Stop: 03/17/21 08:59 Last Admin: 02/16/21 08:09 Dose: 1 tab Documented by: Naloxone HCl (Naloxone Hcl 0.4 Mg/1 Ml Vial/Carp) 0.1 mg IV UD PRN PRN Reason: Opiate Overdose Stop: 03/17/21 00:53 Ondansetron HCl (Ondansetron Inj 2 Mg/Ml 2 Ml Vial) 4 mg IV Q6H PRN PRN Reason: Nausea Stop: 03/17/21 00:53 Paroxetine HCl (Paroxetine Hcl 20 Mg Tab) 20 mg PO [facility] Stop: 03/17/21 20:59 Last Admin: 02/15/21 20:09 Dose: 20 mg Documented by: Senna/Docusate Sodium (Docusate Sodium/Senna 50/8.6mg Tab) 2 tab PO [facility] Stop: 03/17/21 20:59 Last Admin: 02/15/21 20:09 Dose: 2 tab Documented by: Simvastatin (Simvastatin 20 Mg Tab) 20 mg PO [facility] Stop: 03/17/21 20:59 Last Admin: 02/15/21 20:08 Dose: 20 mg Documented by: Vitamin D (Cholecalciferol 1,000 Units 25 Mcg Tab) [facility] Stop: 03/18/21 08:59 Last Admin: 02/16/21 08:09 Dose: 2,000 units Documented by: Resident Activity Tracking Resident Involvement: Resident Care Provided Care Provided: Adult [facility] Medicine (1) Intertrochanteric fracture of right hip Encounter type: initial encounter Fracture alignment: nondisplaced Fracture type: closed Qualified Code(s): S72.144A - Nondisplaced intertrochanteric fracture of right femur, initial encounter for closed fracture
[2021-02-16] MEDS: FERROUS SULFATE 325 MG TAB PO SCH ×2 (13:52→18:15)
[2021-02-16] MEDS: ACETAMINOPHEN 325 MG TAB PO PRN ×2 (14:43→18:36)
[2021-02-16] MEDS: PARoxetine HCL 20 MG TAB PO SCH (20:41)
[2021-02-16] MEDS: DOCUSATE SODIUM/SENNA 50/8.6MG TAB PO SCH (20:43)
[2021-02-16] MEDS: SIMVASTATIN 20 MG TAB PO SCH (20:43)
[2021-02-16] MEDS: HYDROCODONE/ACETAMOPHEN 5/325MG TAB PO PRN (21:02)
[2021-02-17 06:04] LABS: Basophils # (auto) 0.02 K/uL (0-0.2); Basophils % (auto) 0.3 %; Eosinophils # (auto) 0.06 K/uL (0-0.5); Eosinophils % (auto) 0.8 %; Hematocrit (blood only) 21.6 % (37-47); Hemoglobin 7.4 g/dL (12.0-16.0); Immature Granulocytes # (auto) 0.01 K/uL (0.00-0.02); Immature Granulocytes % (auto) 0.1 %; Lymphocytes # (auto) 1.78 K/uL (1.2-3.4); Lymphocytes % (auto) 24.5 %; Mean Corpuscular Hemoglobin 29.5 pg (25-34); Mean Corpuscular Hgb Conc 34.3 g/dL (32-36); Mean Corpuscular Volume 86.1 fL (80-100); Mean Platelet Volume 10.7 fL (7.4-10.4); Monocytes # (auto) 1.13 K/uL (0.11-0.59); Monocytes % (auto) 15.6 %; Neutrophils # (auto) 4.26 K/uL (1.4-6.5); Neutrophils % (auto) 58.7 %; Platelet Count 147 K/uL (130-400); RDW Coefficient of Variation 13.5 % (11.5-14.5); RDW Standard Deviation 42.9 fL (36.4-46.3); Red Blood Count 2.51 M/uL (4.2-5.4); White Blood Count 7.26 K/uL (4.8-10.8)
[2021-02-17 06:35] LABS: RBC Morphology Unremarkable
[2021-02-17] MEDS: ENOXAPARIN INJ 40 MG/0.4 ML SYR SQ SCH (06:35)
[2021-02-17] MEDS: HYDROCODONE/ACETAMOPHEN 5/325MG TAB PO PRN (06:39)
[2021-02-17 06:42] LABS: Albumin Level 2.5 gm/dl (3.4-5.0); BUN Creatinine Ratio 22.3 (10-20); Calcium 8.1 mg/dl (8.5-10.1); Creatinine Clr Calc Pharmacy 63.4 ml/min; Est GFR (Non-African American) 80.2; Potassium 3.7 mmol/L (3.5-5.1)
[2021-02-17 06:45] LABS: Albumin Globulin Ratio 0.9 (0.9-2); Bilirubin,Total 0.9 mg/dl (0.2-1); Globulin 2.9 gm/dl (2.5-4.0); Total Protein 5.4 gm/dl (6.4-8.2)
[2021-02-17] MEDS: CALCIUM CARBONATE 1250MG TAB PO SCH ×2 (08:29→13:27)
[2021-02-17] MEDS: CHOLECALCIFEROL 1,000 UNITS 25 MCG TAB PO SCH (08:30)
[2021-02-17] MEDS: amLODIPine BESYLATE 5 MG TAB PO SCH (08:30)
[2021-02-17] MEDS: FERROUS SULFATE 325 MG TAB PO SCH (08:30)
[2021-02-17] MEDS: lisinopril 20 MG TAB PO SCH (08:31)
[2021-02-17] MEDS: ATENOLOL 25 MG TABLET PO SCH (08:31)
[2021-02-17] MEDS: MULTIVITAMIN TAB PO SCH (08:31)
[2021-02-17] MEDS: INSULIN ASPART 100 UNITS/ML 3 ML PEN SC SCH ×2 (08:34→12:34)
--- NOTE | 2021-02-17 09:05 | Orthopedic Progress Note ---
Date of Service February 17, 2021 Assessment & Plan (1) Intertrochanteric fracture of right hip: Overall she seems to be doing very well. She is working with physical therapy. She is not having too much pain. She is on Lovenox 40 mg subcu daily for DVT prophylaxis. She is orthopedically stable for discharge when medically ready. Full orthopedic discharge instructions were placed in the discharge summary. She can follow-up with orthopedics in 2 weeks. Angy Cervantes was seen and examined at bedside this morning. Overall she is doing very well. She is having much pain in the right hip. She has been working well with physical therapy. She has no complaints.. Review of Systems All systems reviewed & are unremarkable except as noted in HPI & below. Physical Exam On physical examination of the right hip, the dressing is clean and dry. She has active dorsiflexion plantarflexion of her right ankle. Her leg lengths are equal. She is sitting comfortably in a chair.. Results & Data Results & Data Laboratory Results . Diagnostic Findings . PG Care Time/CCT Total # of Minutes Spent Total Time Spent with Patient: Total time spent is greater than 50% in coordination of care (as documented) at patient's floor/unit and/or counseling patient: Coding Level of Care Code 32732 Post Operative Follow-Up Diagnoses Intertrochanteric fracture of right hip S72.144A Encounter type: initial encounter Fracture alignment: nondisplaced Fracture type: closed (1) Intertrochanteric fracture of right hip Encounter type: initial encounter Fracture alignment: nondisplaced Fracture type: closed Qualified Code(s): S72.144A - Nondisplaced intertrochanteric fracture of right femur, initial encounter for closed fracture
[2021-02-17] MEDS ORDERED: SODIUM CHLORIDE 0.9% 250 ML IV PRN ×2 (09:35→10:27)
--- NOTE | 2021-02-17 11:17 | Billing Data ---
Date of Service February 16, 2021 Coding Level of Care Code 60499 Subseq Hosp Care Lvl 3
--- NOTE | 2021-02-17 12:00 | Med Student Discharge Summary ---
Date of Service February 17, 2021 Admission HPI Per Admitting Provider Chief Complaint: The patient presents to the emergency department after a fall while playing with her 2-year-old grandchild, and sustained immediate right hip pain with inability to bear weight. Primary Care Provider: Luis Ewing The patient is a 80-year-old female with a past medical history including hypertension, depression, hyperlipidemia and arthritis. She presents as noted above. Imaging studies in the emergency department revealed a closed right femoral intratrochanteric fracture. Patient was seen in the ED by orthopedic surgery Dr. López, who will take the patient to the OR tomorrow for surgical repair. Admission Exam (Per Admitting) Constitutional The patient is awake, alert and oriented 3, well developed and well nourished, normocephalic and atraumatic, lying in bed and in no acute distress while lying still HEENT--PERRL, EOMI, mucous membranes and oropharynx dry. Neck--supple. No JVD. No bruits. Thyroid normal, trachea midline, no adenopathy. Heart--normal S1 and S2. No murmurs, rubs or gallops. Lungs--clear bilaterally, no respiratory distress, no accessory muscle use. Abdomen--normal bowel sounds and soft. Nontender. Nondistended, no hernias or masses, no organomegaly. Extremities--no cyanosis or clubbing. No edema. Dermatologic--normal skin turgor, normal color, no abnormal lymph nodes, no rash. Neurologic--cranial nerves II through XII grossly intact. Rheumatologic--limited exam due to hip pain Psychiatric--normal affect. Discharge Data Consultations 02/15/21 00:54 Consult Orthopedic Surgery Routine Procedures Performed Operation Date: 02/15/21 11:30 Actual Procedures p Intramedullary Dennis Femur Right(Right) - Sal López DO Hospital Course (1) Acute blood loss anemia: 80 yo F Hx HTN admitted for right intertrochanteric hip fracture, with subsequent acute blood loss anemia. Acute Blood Loss anemia: No need for transfusion. Hgb > 7g/dL, and patient is asymptomatic. Should have eventual reutn to baseline as has no anemia at baseline. Acute right hip fracture: Surgically repaired on 02/[address] López. Refused inpatient PT/OT, stable for PT/OT perspective for home health PT/OT and monitoring by family. Will go home with Lovenox daily injections; to be done for total of 4 weeks. Will have outpatient follow up with Dr. López's office in 2-3 weeks. (2) Hyperglycemia: Hgb A1C was 6.1 at admission. Elevated glucose was likely to due to post- op course. 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 No indication for oral hypoglycemics or insulin. Follow up outpatient regarding elevated BSG. Discharge Plan Discharge Items Patient Disposition: Home - Home Health Services Reason For Visit: CLOSED RIGHT HIP FRACTURE Discharge Diagnosis: right hip fracture Activity: Per Instructions section Weightbearing: Full weightbearing Non-emergency contact: Primary Care Provider and Surgeon Call non-emergency contact if: you have any medication questions, your pain is not controlled, your temperature is above 101, your wound has increased redness, your wound has increased drainage and your wound pain has increased Follow-up/Referrals: Luis Ewing [Primary Care Provider] - 02/24/21 11:00 am (At [place] office) Sal López DO [Physician] - 03/04/21 8:00 am (post-op follow up 2-3 weeks following discharge with Ortho PA) Diet: Low Sodium (2gm) Ambulatory Orders: Complete Blood Count no Diff (Routine) Timeframe: 2 Days Location: Determined by Patient Ordered By: Avelina Villar Attending Provider Instructions: ORTHOPEDIC INSTRUCTIONS Hip Fracture Activity and Therapy Recommendations: 1. You were shown a series of exercises in the hospital. Do these exercises three times each day if you are able. 2. Get up and walk several times each day if you are capable. Make sure you have assistance is needed. For the first four weeks, try not to stand or walk for more than one hour at a time. If you do stand or walk for more than one hour, you will not hurt anything, but your leg will likely swell. 3. As you feel comfortable, you may change from the walker or crutches to a cane and then to independent walking if you are able. Please be safe. Medications: 1. Narcotic You will likely be sent from the hospital with the narcotic pain medication that worked best throughout your stay. 2. Lovenox You will likely be required to take a Lovenox shot once daily for 4 weeks after discharge from the hospital 3. Other medications may be given for specific circumstances. If you have any questions, please call the office at [phone]. 4. Resume previous home medications unless otherwise instructed. TEDs/Elastic Stockings: The white elastic stockings help limit swelling and prevent blood clots from forming in your legs. The more you wear them, the more they work. Wear them for six weeks. Dressing Care: Veena can be open to air as long as the incisions are not draining. If the incisions are draining or if the veena are getting caught on your clothes then please cover the veena with dry gauze. Change the dressings as necessary to keep the incision as dry as possible Showering: You may shower 5 days from the day of surgery as long as the incisions are not draining. Do not soak the incision. Let soapy water run over the veena and pat them dry. Things To Watch For: 1. Drainage from the incision site that occurs more than one week after your surgery. 2. Increased redness at the incision site. 3. Fever above 101 degrees Fahrenheit. 4. Unusual chest pain or shortness of breath. 5. Call [facility] at with any of the above problems Follow-Up Visit: Follow-up with Dr. López's PA (Sal Arreola) 2-3 weeks after your day of surgery. He will remove your veena and answer any questions. If you have any additional questions or concerns, Dr López is usually in the office at the same time and will be available. If you have any questions call [facility] [place] [employer] Provider Instructions: You were admitted to the hospital following a fall and found to have a right hip fracture. You had surgery to repair your hip on 02/15. Due to blood loss from surgery, your blood count dropped and we gave you a unit of blood to help replace some of the blood you lost. You had a fever once. We looked for signs of lung and urinary infections, which there were not any. We also looked at your incision site for signs of infection, which there were not any. Sometimes people can have fevers after surgery, and as long as there are not signs of infection this is okay. We felt safe to discharge you home with the following recommendations: 1) You will go home with Lovenox shots; these help thin the blood to prevent blood clots after surgery. You should do one shot every day for the next 4 weeks. The home health nurses will show you how to do this. The prescription was sent to [facility]. 2) You will have follow up with Dr. López's office in 2-3 weeks. You should follow up with your primary care doctor about 1 week from discharge. 3) We have ordered a blood count to be checked in 2-3 days after discharge. You should be provided with a prescription for this, which you can take to the lab of your choice to be sent to your primary care doctor. This is to make sure that your blood count stays stable. 4) You can take Tylenol as needed for mild pain at home. You were sent with 7 tablets of [place], to be used every 12 hours in instances of severe pain. 5) You did not want to go to inpatient rehab for recovery. We felt comfortable sending you home since you have support from family. We will have home health services come to your house several times a week in order to perform physical and occupational therapy. If at any time you feel as though you cannot tolerate being home and are not getting better, or your walking is getting worse, please call your primary care doctor to help you get set up for inpatient rehab. 6) You had a fever before discharge. It is important that you watch for signs of infection, such as worsening redness of your incision, pus coming from the wound, trouble breathing, difficulty with urination. If you have any of these please call your primary care doctor. 7) You should keep taking your Vitamin D supplement. The one sent to the pharmacy is a once weekly vitamin D supplement, to take every Wednesday. You should have a bone test called a DEXA scan a few weeks after you are discharged. If you have any chest pain, shortness of breath, or fevers over 101, please seek urgent medical evaluation. Pending Studies at Discharge: No Stand-Alone Forms: My [employer], Opioid Pain Management, Smoking Cessation Medications and DC Order Prescriptions: New hydrocodone-acetaminophen 5-325 mg tablet 1 tab PO BID PRN (Reason: pain) Qty: 7 RF: 0 ergocalciferol (vitamin D2) 1,250 mcg (50,000 unit) Capsule 50,000 unit PO Sa@0900 28 Days Qty: 4 RF: 0 cholecalciferol (vitamin D3) 25 mcg (1,000 unit) Capsule 2,000 unit PO QAM 30 Days RF: 0 enoxaparin 40 mg/0.4 mL Syringe 40 mg subcut Q24H 28 Days Qty: 11.2 RF: 0 Continued multivitamin Tablet 1 tab PO QAM RF: 0 atenolol 25 mg tablet 25 mg PO QAM RF: 0 amlodipine 5 mg Tablet 5 mg PO QAM RF: 0 potassium 99 mg Tablet 99 mg PO QAM RF: 0 paroxetine HCl 20 mg tablet 20 mg PO HS RF: 0 simvastatin 20 mg tablet 20 mg PO HS RF: 0 lisinopril 10 mg tablet 20 mg PO BID RF: 0 Discharge Orders: Discharge Order (Routine); Ordered 02/17/21 Ordered By: Avelina Ragland/Other Patient Handouts: 5 Steps for Eating Healthier, Understanding Hip Fractures, After a Hip Fracture: Common Questions, How Bones Heal, Enoxaparin injection, A1C Admission Data Admit Date/Time: 02/14/21 23:22 Attending Provider: Una Osborne Admit Provider: Jt Howard Primary Care Provider: Luis Ewing Other Providers: Jt Howard ; Sal López ; Denzel Hidalgo Other Interventions: Discharge Summary Assessment (RN) Last Done: 02/17/21 14:08 Supervising Attestation Medical Student Supervision Note: I was personally present during medical student patient encounter and independently interviewed and examined the patient and verified the mccarthy history and physical, reviewed labs and image studies, discussed the case with Ray Nassar and agree with the findings and care plan. Acute blood loss anemia- hemodynamically stable. hb >7. d/c home with home PT. lovenox for DVT proph. hydrocodone prn and tylenol prn for pain control.
== END 2021-02-17 15:40 | disposition home health service (06) | DRG 481 ==
LOC: ED 20:49 → SUATTDRO 23:22 → 3W 23:22

== ENCOUNTER 2021-03-23 12:59 | Inpatient (IN) ==
[2021-03-23] MEDS ORDERED: FAMOTIDINE 20MG IV PUSH 20 MG/5 ML SYR IV STA (13:39)
[2021-03-23] MEDS ORDERED: ACETAMINOPHEN 1,000 MG/100 ML VIAL IV STA (13:39)
[2021-03-23] MEDS ORDERED: ONDANSETRON INJ 2 MG/ML 2 ML VIAL IV STA (13:39)
[2021-03-23] MEDS ORDERED: VANCOMYCIN CONSULT ACTIVE PRN (13:41)
[2021-03-23] MEDS ORDERED: VANCOMYCIN HCL 2,250 MG in SODIUM CHLORIDE 0.9% 500 ML IV ONE (13:41)
[2021-03-23] MEDS ORDERED: PIPERACILLIN/TAZOBACTAM 4.5 GM in DEXTROSE 5% 100 ML IV ONE (13:41)
[2021-03-23] MEDS ORDERED: PIPERACILL/TAZOBAC CONSULT ACTIVE PRN ×2 (13:41→16:58)
[2021-03-23] MEDS ORDERED: SODIUM CHLORIDE 0.9% 1000ML 1,000 ML IV SCH ×3 (13:45→14:38)
[2021-03-23 13:57] LABS: Hematocrit (blood only) 34.3 % (37-47); Hemoglobin 11.2 g/dL (12.0-16.0); Mean Corpuscular Hemoglobin 28.9 pg (25-34); Mean Corpuscular Hgb Conc 32.7 g/dL (32-36); Mean Corpuscular Volume 88.4 fL (80-100); Mean Platelet Volume 12.1 fL (7.4-10.4); Platelet Count 245 K/uL (130-400); RDW Coefficient of Variation 14.9 % (11.5-14.5); RDW Standard Deviation 48.3 fL (36.4-46.3); Red Blood Count 3.88 M/uL (4.2-5.4); White Blood Count 18.77 K/uL (4.8-10.8)
[2021-03-23 14:06] LABS: Albumin Level 2.6 gm/dl (3.4-5.0); BUN Creatinine Ratio 18.9 (10-20); Bilirubin Direct 0.7 mg/dl (0-0.2); Calcium 9.6 mg/dl (8.5-10.1); Creatinine Clr Calc Pharmacy 23.5 ml/min; Est GFR (African American) 25.6; Est GFR (Non-African American) 22.1; Magnesium 1.6 mg/dl (1.8-2.4); Potassium 3.5 mmol/L (3.5-5.1)
--- NOTE | 2021-03-23 14:06 | XRay Report ---
SINGLE VIEW CHEST CLINICAL HISTORY: Sepsis. FINDINGS: An AP, portable, upright chest radiograph is compared to study dated 02/14/2021. There is a h iatal hernia. The cardiomediastinal silhouette is unremarkable noting atherosclerotic calcification o f the thoracic aorta. Chronic interstitial thickening is similar to previous. There is bibasilar atel ectasis. No airspace consolidation or large pleural effusion is identified. No pneumothorax is seen. The skeletal structures are osteopenic. The bony thorax is grossly intact. IMPRESSION: 1. No active disease in the chest. 2. Hiatal hernia. ACT 112: Negative or not required by law. Electronically signed by: Wai Prather M.D. 03/23/2021 2:05 PM
[2021-03-23 14:09] LABS: INR 1.3 (0.9-1.1); Partial Thromboplastin Ratio 1.1; Partial Thromboplastin Time 29.6 Seconds (21.0-31.0); Prothrombin Time 13.3 Seconds (9.0-12.0)
[2021-03-23] MEDS ORDERED: OPTIRAY 350 500ml IV ONE (14:10)
[2021-03-23 14:11] LABS: iSTAT Hemoglobin 9.2 g/dl (12.0-16.0); iSTAT Ionized Calcium 1.15 mmol/l (1.12-1.32); iSTAT Potassium 3.2 mmol/L (3.3-5.0)
[2021-03-23 14:14] LABS: Base Excess VBG -7.7 mEq/L; HCO3 VBG 17 mmol/L; Oxygen Saturation VBG < 60.0 %; PCO2 VBG 33 mmHg (38-50); PO2 VBG 29 mmHg; pH VBG 7.34 (7.36-7.41)
[2021-03-23 14:19] LABS: iSTAT Creatinine 1.9 mg/dl (0.6-1.3); iSTAT Hemoglobin 9.2 g/dl (12.0-16.0); iSTAT Ionized Calcium 1.13 mmol/l (1.12-1.32); iSTAT Potassium 3.3 mmol/L (3.3-5.0)
[2021-03-23 14:29] LABS: Basophils # (auto) 0.01 K/uL (0-0.2); Basophils % (auto) 0.1 %; Dohle Bodies 2+; Echinocytes 1+; Eosinophils # (auto) 0.11 K/uL (0-0.5); Eosinophils % (auto) 0.6 %; Immature Granulocytes % (auto) 1.6 %; Lymphocytes # (auto) 0.38 K/uL (1.2-3.4); Monocytes # (auto) 0.27 K/uL (0.11-0.59); Monocytes % (auto) 1.4 %; Neutrophils % (auto) 94.3 %; Toxic Vacuolation 3+
[2021-03-23 14:30] LABS: Appearance Urine Turbid (Clear); Bacteria Urine Automated 4+ (Negative); Bilirubin Urine Negative (Negative); Blood Urine 2+ (Negative); Color Urine Dark Yellow; Epithelial Cell Urine Auto >30 /lpf (0-5); Glucose Urine UA Negative (Negative); Ketones Urine Negative (Negative); Leukocyte Esterase Urine 3+ (Negative); Nitrite Urine Negative (Negative); Protein Urine 2+ (Negative); Specific Gravity Urine 1.018 (1.000-1.030); Urobilinogen Urine Negative (Negative); WBC Urine Automated >30 /hpf (0-5)
[2021-03-23 14:36] LABS: Albumin Globulin Ratio 0.7 (0.9-2); Bilirubin,Total 1.1 mg/dl (0.2-1); Globulin 3.5 gm/dl (2.5-4.0); Phosphorus 3.1 mg/dl (2.5-4.9); Total Protein 6.1 gm/dl (6.4-8.2); Troponin I 0.17 ng/ml (0-0.045)
[2021-03-23] MEDS: MAGNESIUM SULFATE / D5W 1 GM/100 ML BAG IV SCH ×2 (14:43→15:47)
[2021-03-23] MEDS ORDERED: STAT IV Infusion **Titration per Protocol STA (14:46)
[2021-03-23] MEDS ORDERED: LACTATED RINGER'S 1,000 ML IV ONE (14:47)
[2021-03-23 14:50] LABS: Influenza A virus by PCR Negative (Neg); Influenza B virus by PCR Negative (Neg); RSV by PCR Negative (Neg); SARS CoV2 RNA(COVID-19) InHosp NEGATIVE (Negative)
[2021-03-23] MEDS: NOREPINEPHRINE/D5W 8 MG/508 ML BAG IV SCH (14:54)
--- NOTE | 2021-03-23 14:59 | CT Scan Report ---
CT ANGIOGRAM OF THE CHEST; CT SCAN OF THE ABDOMEN AND PELVIS WITH IV CONTRAST CLINICAL HISTORY: Fever. Hypoxia. Vomiting. Generalized abdominal pain. COMPARISON STUDY: Chest x-ray dated 03/23/2021. Pelvic radiograph dated 02/14/2021. TECHNIQUE: Following the IV administration of 116 of Optiray 350, CT angiogram of the chest is perfor med from the upper abdomen to the thoracic inlet utilizing the pulmonary embolus protocol. Images are reviewed in the axial, sagittal, coronal planes. 3-D MIPS images are created and assessed. Subsequen tly, CT scan of the abdomen and pelvis was performed from the lung bases to the proximal femora. Imag es are reviewed in the axial, sagittal, and coronal planes. IV contrast was administered without comp lication. A dose lowering technique was utilized adhering to the principles of ALARA. CT DOSE: 1217.64 mGy.cm FINDINGS: CHEST: Thyroid: Mildly atrophic and heterogeneous. Thoracic aorta: There is atherosclerotic calcification of the thoracic aorta, which is normal in rama caio and demonstrates 4-vessel variant arch anatomy. No dissection is seen. Pulmonary vasculature: Dilatation of the main pulmonary arteries suggests pulmonary artery hypertensi on. There is segmental pulmonary embolism within an anterior branch of the right upper lobe pulmonary artery seen on image #142. No additional pulmonary emboli are identified Heart: The heart is enlarged and without pericardial effusion. Lungs and pleural spaces: Evaluation of the lung parenchyma is modestly degraded by motion artifact. There is trace right pleural effusion. Scarring/atelectasis is noted at both lung bases. There is no airspace consolidation typical for pneumonia. The trachea and central airways are clear. Mediastinum: Scattered subcentimeter mediastinal lymph nodes are not pathologically enlarged by size criteria. Chikis: Clear. Axillae: There is no axillary lymphadenopathy. Bony thorax: The skeletal structures are osteopenic. There are mild superior endplate compression def ormities of T3, T4, T5, T6, and T10. Degenerative change and hyperkyphosis are noted in the thoracic spine. No lytic or blastic lesions are identified. ABDOMEN AND PELVIS: Liver: The contrast-enhanced liver is enlarged, measuring 18.5 cm in length. The liver is otherwise n ormal in contour and attenuation. There is no intrahepatic or ductal dilatation. The hepatic veins an d portal veins are patent. There is mild periportal edema. Gallbladder: Unremarkable. Spleen: Normal in size and attenuation. There are subtle indeterminant splenic hypodensities which me asure up to 1.3 cm. There are 2.0 cm, 1.8 cm, 1.5 cm, and 1.2 cm peripherally calcified splenic arter y aneurysms. Pancreas: Moderately atrophic and grossly unremarkable. Adrenal glands: The adrenal glands appear hyperemic. Kidneys: The contrast enhanced kidneys are normal in size. There is a 7 mm obstructing calculus in th e right proximal ureter at the level of L3 located just below the ureteropelvic junction. This is bes t seen on image #164 and causes mild to moderate right hydronephrosis. No additional calculi are iden tified in either kidney on this contrast-enhanced examination. There is no left-sided hydronephrosis. The kidneys enhance symmetrically. Urothelial thickening and enhancement within the right renal pelv is and right proximal ureter are likely related to obstruction/hydronephrosis. A circumaortic left re nal vein is incidentally noted. 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 Abdominal vasculature: The abdominal aorta is normal in course and caliber noting moderate atheroscle rotic calcification. Stomach and bowel: There is a moderate to large hiatal hernia, with over half of the stomach located in the thoracic cavity. There is mild to moderate colonic diverticulosis without CT evidence of acute diverticulitis. No bowel obstruction is identified. The appendix is well-visualized and normal. Peritoneum: There is no intraperitoneal free air or abdominal ascites. There is a small fat-containin g umbilical hernia. Lymphadenopathy: None. Pelvic viscera: The bladder is decompressed around a Watkins catheter. The bladder wall appears markedl y thickened and there is pericystic inflammation. The endometrium appears significantly thickened for age measuring up to 1.7 cm. No adnexal lesion is identified. Skeletal structures: The skeletal structures are osteopenic. No lytic or blastic lesions are seen. Th ere is mild lumbosacral spondylosis. There are superior endplate compression deformities of L3, L4, a nd L5. There is an acute to subacute right proximal femoral fracture with intertrochanteric and intra medullary nails in place. There is mild surrounding hemorrhage. No organized hematoma is identified. IMPRESSION: 1. There is segmental pulmonary embolus within a branch of the right upper lobe pulmonary artery. 2. Cardiomegaly and trace right pleural effusion. 3. Large hiatal hernia. 4. No airspace consolidation is identified typical for pneumonia. 5. There is a 7 mm obstructing calculus in the right proximal ureter located just below the ureterope lvic junction. This causes mild to moderate right hydronephrosis. 6. Urothelial thickening and enhancement in the right renal pelvis and proximal ureter is nonspecific and may be related to obstruction/hydronephrosis. Correlate clinically and with urinalysis for evide nce of superimposed urinary tract infection. 7. The bladder is decompressed around a Watkins catheter. The bladder appears markedly thick walled wit h pericystic inflammation. The appearance suggests cystitis, and again this should be correlated with clinical findings and urinalysis. 8. 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 9. The endometrium appears markedly thickened for age measuring up to 1.7 cm. This is not well assess ed by CT and nonemergent follow-up with gynecology and pelvic ultrasound is recommended for further a ssessment. 10. The adrenal glands appear hyperemic. This a nonspecific finding but can be seen with hypovolemia/ hypotension. Clinical correlation will be required. 11. Colonic diverticulosis without CT evidence of acute diverticulitis. 12. There is an acute to subacute fracture of the right proximal femur with intertrochanteric and int ramedullary nails in place. 13. There are numerous mild and age indeterminant thoracolumbar compression deformities. See above. 14. Additional findings as above. ACT 112: Positive. There are findings on this exam that require communication between the performing entity and the patient following Patient Test Result Information Act ([place] Act 112) guidelines. Electronically signed by: Wai Prather M.D. 03/23/2021 2:57 PM
--- NOTE | 2021-03-23 15:50 | Critical Care Consultation ---
Date of Consultation March 23, 2021 Assessment & Plan (1) Septic shock: Reason critically ill: 80-year-old female past medical history of hypertension, dyslipidemia, recent right hip fracture status post ORIF 02/15/21 present to the hospital with septic shock likely from right-sided kidney stone. EKG 03/23/2021: Normal sinus rhythm, normal axis, no ST-T wave changes appreciated, QTC 493 CT chest 03/23/2021 personally reviewed: Minimal atelectasis bilateral lower lobes. Segmental PE right upper lobe Moderate hiatal hernia appreciated -- Septic shock Likely urinary source Continue broad-spectrum antibiotics Follow-up culture and sensitivity Procalcitonin greater than 200 COVID-19 PCR negative, influenza A/B negative --Right-sided hydronephrosis with nephrolithiasis 7 mm obstructing stone S/p OR by urology on 03/23/2021 -- LIANG Follow-up urine lites Monitor BUN/creatinine Avoid nephrotoxic medications Strict ins and outs -- Acute segmental PE Likely provoked given the recent right hip surgery for a intertrochanteric fracture No right heart strain appreciated on the CT Patient's hypotension is likely coming from sepsis given the elevated procalcitonin and WBC count No TPA indication currently -- HAGMA Delta-delta: 1.1, Pure anion gap Likely sec to lactic acidosis Monitor -- Elevated troponin Likely secondary type II NH EKG shows no changes Monitor --History of hypertension Hold blood pressure medications -- Prophylaxis VTE: Heparin drip GI: Pepcid Lines: Left IJ Diet: N.p.o. Plan: Broad-spectrum antibiotics to cover for gram-negative. Follow-up urine/blood culture and sensitivity. Vasopressor support to keep MAP greater than 65 Follow-up random cortisol Start heparin drip low dose, no bolus. Okay by urology to start heparin drip Follow-up Doppler lower extremity I have personally spent 56 minutes of critical care time in the direct management of this patient. This is a life/limb threatening event. This includes time spent evaluating patient, direct bedside care, chart review, placing orders, interpretation of diagnostic studies, discussion with consultants, patient, and family members, as well as other required patient management activities. This time is exclusive of all separately billable procedures, and teaching time and separate from and in addition to any other critical care service time. Please note the above document was generated using voice recognition software. It may contain grammatical, syntax or spelling errors. (2) Kidney stone: (3) Depression: (4) Hypertension: (5) Pulmonary embolism: (6) LIANG (acute kidney injury): History of Present Illness History of Present Illness 80-year-old female past medical history of hypertension, depression, dyslipidemia with recent right hip fracture s/p ORIF 02/15/2021 to the ED with complaints of weakness. She complains of right-sided flank pain without radiation. Patient denies any other symptoms no fever, no chills, no chest pain, no shortness of breath. In the ED patient's initial blood pressure was 72/43. She got total of 2.5 L of normal saline but blood pressure was still low. Central line was placed by the ED physician. Patient was taken to the OR directly from the ED on Levophed During the OR patient was on Levophed 0.15 She has got a total of 4 L in the ED. No adverse events in the OR as per the anesthesiologist At the time of examination patient was saturating 99% on 6 L oxygen mask. She was not in any acute distress. She was still under the anesthesia. But answering all the questions appropriately. Moving all the extremities appropriately. She was on Levophed 0.15 with map of 77 Denied any abdominal pain, no headache, no nausea, no vomiting. Allergies Allergy/AdvReac Type Severity Reaction Status Date / Time No Known Allergies Allergy Verified 02/14/21 21:46 Home Medications Medication Instructions Recorded Confirmed Type amlodipine 5 mg PO QAM 02/14/21 03/23/21 History atenolol 25 mg PO QAM 02/14/21 03/23/21 History lisinopril 20 mg PO DAILY 02/14/21 03/23/21 History multivitamin 1 tab PO QAM 02/14/21 03/23/21 History paroxetine HCl 20 mg PO HS 02/14/21 03/23/21 History simvastatin 20 mg PO HS 02/14/21 03/23/21 History Patient History Medical History Arthritis Depression Hyperlipidemia Hypertension Social History Smoking Status: Never smoker Hx Alcohol Use: No Hx Substance Use: No Preferred Language: Arabic Communication Ability: Effective Preschool Education Director Required: No marital status: / Current Living Situation: Family Current Living Situation Comment: dtr Feels Safe at Home: Yes Assistive Devices: Glasses and Walker Review of Systems Review of Systems: All systems reviewed & are unremarkable except as noted in HPI & below Physical Exam Physical Exam: Constitutional: No acute distress HEENT: EOMI, PERRLA Respiratory system: Decreased air entry bilaterally, no wheeze, no rhonchi, positive crackles bilateral lower lobes CVS: S1-S2 positive, no murmurs or gallops Abdomen: Soft, nontender, nondistended, positive bowel sounds x4 Extremities: +2 pulses bilaterally radialis/ dorsalis pedis, no cyanosis, no edema Neuro: Awake alert oriented x3 Psych: Normal mood and affect G/U: Positive rodarte Skin: no rashes, warm and dry Lymphatic: no cervical or axillary lymphadenopathy Results & Data Results & Data ([facility]) Vital Signs (Past 12 Hours) Vital Signs Temp Pulse Pulse Resp BP BP Pulse Ox 03/23/21 15:19 78 24 83/58 L 95 03/23/21 15:12 76 24 76/56 L 94 03/23/21 15:06 77 30 H 81/51 L 95 03/23/21 14:45 78 36 H 72/46 L 96 03/23/21 13:55 97 03/23/21 13:39 97 03/23/21 13:22 94 03/23/21 13:18 36.8 C 85 18 72/43 L 91 03/23/21 13:10 03/23/21 13:10 Coding Level of Care Code Critical Care 1st 30-74 mins Diagnoses Septic shock A41.9; R65.21 Kidney stone N20.0 Depression F32.9 Hypertension I10 Hypertension type: essential hypertension Pulmonary embolism I26.99 LIANG (acute kidney injury) N17.9 Time Spent (min) 56 (1) Hypertension Hypertension type: essential hypertension Qualified Code(s): I10 - Essential (primary) hypertension
--- NOTE | 2021-03-23 15:50 | History & Physical Report ---
Date of Service March 23, 2021 Assessment & Plan (1) Septic shock: Admit to the ICU Broad-spectrum antibiotics per critical care service Patient now on Levophed ER physician to place central access (2) Kidney stone: Urology aware, plan for OR this afternoon With hypotension, patient represents some surgical risk but benefits outweigh risks at this point Postop orders per urology (3) LIANG (acute kidney injury): Likely secondary to renal stone, hypotension, and sepsis Hydrate per sepsis protocol Continue to monitor (4) Pulmonary embolism: Most likely incidental I recommend initiating heparin drip as soon as possible 2D echo when able Trend troponins (5) Hypertension: Hold hypertensive medications for now as patient is hypotensive and septic (6) Hyperlipidemia: Okay to hold medications for now as well (7) Intertrochanteric fracture of right hip: Patient is apparently independent at home prior to admission, will require PT/OT when viable History of Present Illness Primary Care Provider: Luis Ewing This is a 72-year-old female with past medical history of hypertension, hyperlipidemia, and recent right intramedullary nail of the femur secondary to intratrochanteric fracture that presents today complaining weakness. She is somewhat limited historian, daughter is at bedside. Of note, patient was in the hospital 07/04/2021 after a fall. She was found to have a right femoral intertrochanteric fracture. She underwent intramedullary nailing. Patient was discharged home to the care of the daughter without any issues. Patient returned today complaining of generalized weakness. She generally did not have any symptoms and specifically denied any fever, chills, chest pain, shortness of breath. She did note some right flank pain without radiation. Initial work-up in the emergency room found that the patient was not febrile but had significant hypotension with initial blood pressure of 72/43. Work-up included CT angiogram as well as a CT abdomen. This revealed a right upper lobe segmental pulmonary embolus. In addition, there is a 7 mm obstructing calculus in the right proximal ureter just below the ureteropelvic junction. This was causing hydronephrosis. Lab work revealed that the patient was septic with a lactate over 8. We are being asked to admit the patient to the ICU for definitive treatment of sepsis, urinary tract infection, and PE. The emergency room physician is already discussed with Dr. Tavarez with urology and the patient will be taken to the OR for cystoscopy momentarily. Allergies Allergy/AdvReac Type Severity Reaction Status Date / Time No Known Allergies Allergy Verified 02/14/21 21:46 Home Medications Medication Instructions Recorded Confirmed Type amlodipine 5 mg PO QAM 02/14/21 03/23/21 History atenolol 25 mg PO QAM 02/14/21 03/23/21 History lisinopril 20 mg PO DAILY 02/14/21 03/23/21 History multivitamin 1 tab PO QAM 02/14/21 03/23/21 History paroxetine HCl 20 mg PO HS 02/14/21 03/23/21 History simvastatin 20 mg PO HS 02/14/21 03/23/21 History Past Med/Surg History Medical History Arthritis Depression Hyperlipidemia Hypertension Social History Smoking Status: Never smoker Hx Alcohol Use: No Hx Substance Use: No Preferred Language: Ukrainian Communication Ability: Effective Personnel Security Assistant Required: No marital status: / Current Living Situation: Family Current Living Situation Comment: dtr Feels Safe at Home: Yes Assistive Devices: Glasses and Walker Review of Systems Constitutional: + body aches and + weakness; no fever and no chills Respiratory: no cough, no chest congestion, no change in sputum, no dyspnea, no dyspnea on exertion and no pain on inspiration Cardiovascular: no chest pain, no chest pain at rest, no radiating jaw, neck or arm pain, no dyspnea and no dyspnea on exertion Gastrointestinal: no abdominal pain, no heartburn, no nausea, no vomiting, no constipation and no diarrhea/loose stools Genitourinary: + flank pain; no dysuria, no urinary hesitancy and no urinary urgency Musculoskeletal: no back pain and no neck pain Neurologic: no gait abnormality Physical Exam Constitutional: well developed and + ill appearing; no acute distress Neck: Thyroid: normal thyroid Respiratory: normal respiratory effort, lungs clear to auscultation Auscultation: lungs clear to auscultation bilaterally Cardiovascular: RRR, no murmur, no edema Heart Sounds: normal S1 and normal S2 Gastrointestinal (Abdomen): Inspection/Auscultation: abdomen normal to inspection Percussion/Palpation: abdomen nontender, no guarding and + abdomen not soft Skin: no rashes, warm and dry Results & Data Results & Data ([facility]) Vital Signs (Past 12 Hours) Vital Signs Temp Pulse Pulse Resp BP BP Pulse Ox 03/23/21 15:35 81 30 H 89/74 L 96 03/23/21 15:29 80 30 H 88/57 L 95 03/23/21 15:24 79 30 H 87/59 L 93 03/23/21 15:19 78 24 83/58 L 95 03/23/21 15:12 76 24 76/56 L 94 03/23/21 15:06 77 30 H 81/51 L 95 03/23/21 14:45 78 36 H 72/46 L 96 03/23/21 13:55 97 03/23/21 13:39 97 03/23/21 13:22 94 03/23/21 13:18 36.8 C 85 18 72/43 L 91 Code Status & VTE Plan VTE Prophylaxis Plan VTE Prophylaxis will be ordered: Yes PG Care Time/CCT Total # of Minutes Spent Total Time Spent with Patient: Total time spent is greater than 50% in coordination of care (as documented) at patient's floor/unit and/or counseling patient: Coding Level of Care Code 65410 Initial Inpt Care Lvl 3 Diagnoses Septic shock A41.9; R65.21 Kidney stone N20.0 LIANG (acute kidney injury) N17.9 Pulmonary embolism I26.99 Hypertension I10 Hypertension type: essential hypertension Hyperlipidemia E78.5 Intertrochanteric fracture of right hip S72.144A Encounter type: initial encounter Fracture alignment: nondisplaced Fracture type: closed (1) Hypertension Hypertension type: essential hypertension Qualified Code(s): I10 - Essential (primary) hypertension (2) Intertrochanteric fracture of right hip Encounter type: initial encounter Fracture alignment: nondisplaced Fracture type: closed Qualified Code(s): S72.144A - Nondisplaced intertrochanteric fracture of right femur, initial encounter for closed fracture
--- NOTE | 2021-03-23 15:55 | Urology Consultation ---
Date of Consultation March 23, 2021 Assessment & Plan (1) Septic shock: Severe Sepsis with multi organ effects. Obstructing Proximal ureteral stone with pyelonephritis. Risks and benefits discussed at length for procedure. These include bleeding, infection, injury to surrounding tissues or organs, and risks associated with anesthesia. Patient's daughter bedside. Discussed emergent need due to severe sepsis. Imaging reviewed and interrupted by myself. Obstructing stone. Labs reviewed. Vitals reviewed. Patients complicated medical and surgical history reviewed and summarized as above. Patient states understanding and agrees to proceed. Consent signed by daughter with emergent consent for procedure. Critical management with fluid resuscitation and pressors for significant hypotension. Broad spectrum antibiotics. Cystoscopy with right stent placement. (2) Kidney stone: (3) LIANG (acute kidney injury): (4) Lactic acid acidosis: History of Present Illness History of Present Illness Urgent/emergent consultation for acutely ill and septic patient with UTI/Pyelo, discomfort, and ill feelings. Patient developed sudden onset of pain into flank going down and radiating into groin and back in waves comes and goes. Can be severe at times. Altered mental status due to acute illness Post op from hip surgery approx 1 month ago. Recovering and has been feeling ill last 3-4 days. Discussed and reviewed patient's personal medical, surgical, social, and family history for any history of issues, infections, and disease. Also, discussed patient's medical/surgery history especially related to any history of urinary issues or stone disease. Patient is undergoing intense/critical management for acute illness and is being admitted to undergo critical care. Hospitalist/ICU team has admitted and is undergoing observation with broad spectrum IV antibiotics. Allergies Allergy/AdvReac Type Severity Reaction Status Date / Time No Known Allergies Allergy Verified 02/14/21 21:46 Home Medications Medication Instructions Recorded Confirmed Type amlodipine 5 mg PO QAM 02/14/21 03/23/21 History atenolol 25 mg PO QAM 02/14/21 03/23/21 History lisinopril 20 mg PO DAILY 02/14/21 03/23/21 History multivitamin 1 tab PO QAM 02/14/21 03/23/21 History paroxetine HCl 20 mg PO HS 02/14/21 03/23/21 History simvastatin 20 mg PO HS 02/14/21 03/23/21 History Patient History Medical History Arthritis Depression Hyperlipidemia Hypertension Social History Smoking Status: Never smoker Hx Alcohol Use: No Hx Substance Use: No Preferred Language: Honduran Communication Ability: Effective Relationship Consultant Required: No marital status: / Current Living Situation: Family Current Living Situation Comment: dtr Feels Safe at Home: Yes Assistive Devices: Glasses and Walker Review of Systems Review of Systems: All systems reviewed & are unremarkable except as noted in HPI & below Limited due to patient illness Physical Exam Physical Exam: General: Acutely ill. Undergoing critical care management for acute severe infection HEENT: Normocephalic Atraumatic. Inspection normal. Cranial Nerves 2-12 Grossly intact. Nares are clear. Neck is supple. Normal inspection of face. Normal inspection of neck. Neurologic: No deficits on inspection. Baseline for motor function and sensory. Psychologic: Anxious, acute delirium secondary to illness Respiratory: Mild labored. No use of accessory muscles. No severe dyspnea. Tachypnic. Cardiovascular: tachycardia Skin: [place] and Dry. No rashes or visible lesions. Febrile Extremities: Moving without issues. No motor deficits on inspection Lymphatics: Mild edema Abdomen: Mildly distended. No rebound or guarding. Mild suprapubic/flank tenderness Results & Data ([facility]) Vital Signs (Past 12 Hours) Vital Signs Temp Pulse Pulse Resp BP BP Pulse Ox 03/23/21 15:45 82 30 H 91/56 L 95 03/23/21 15:35 81 30 H 89/74 L 96 03/23/21 15:29 80 30 H 88/57 L 95 03/23/21 15:24 79 30 H 87/59 L 93 03/23/21 15:19 78 24 83/58 L 95 03/23/21 15:12 76 24 76/56 L 94 03/23/21 15:06 77 30 H 81/51 L 95 03/23/21 14:45 78 36 H 72/46 L 96 03/23/21 13:55 97 03/23/21 13:39 97 03/23/21 13:22 94 03/23/21 13:18 36.8 C 85 18 72/43 L 91 PG Care Time/CCT Total # of Minutes Spent Total Time Spent with Patient: Total time spent is greater than 50% in coordination of care (as documented) at patient's floor/unit and/or counseling patient: Coding Level of Care Code 61535 Inpt Consult Level 5 Diagnoses Septic shock A41.9; R65.21 Kidney stone N20.0 LIANG (acute kidney injury) N17.9 Lactic acid acidosis E87.2
--- NOTE | 2021-03-23 15:57 | Anesthesiology Consultation ---
Date of Service March 23, 2021 Assessment & Plan (1) Encounter for pre-operative examination: Chart Review Chart Review: upscale security officer initiated History Surgery Operation Date: 03/23/21 15:50 Proposed Procedures p Cystoscopy(Right) - Earle Tavarez DO Operation Date: 03/23/21 16:00 Proposed Procedures p Cystoscopy(Right) - Earle Tavarez DO Height/Weight Height: 5 ft 3 in Weight: 89 kg Allergies Allergy/AdvReac Type Severity Reaction Status Date / Time No Known Allergies Allergy Verified 02/14/21 21:46 Medications Home Medications Medication Instructions Recorded Confirmed Last Taken amlodipine 5 mg PO QAM 02/14/21 03/23/21 02/14/21 atenolol 25 mg PO QAM 02/14/21 03/23/21 02/14/21 lisinopril 20 mg PO DAILY 02/14/21 03/23/21 02/14/21 AM DOSE multivitamin 1 tab PO QAM 02/14/21 03/23/21 02/14/21 paroxetine HCl 20 mg PO HS 02/14/21 03/23/21 02/13/21 simvastatin 20 mg PO HS 02/14/21 03/23/21 02/13/21 Active Medications Generic Name Dose Route Start Last Admin Trade Name Freq PRN Reason Stop Dose Admin Vancomycin HCl 2,250 mg/ 545 mls @ 200 mls/hr 03/23/21 13:41 03/23/21 14:36 Sodium Chloride IV 03/23/21 16:24 200 mls/hr NOW ONE Administration Magnesium Sulfate/Dextrose 1 gm in 100 mls @ 100 mls/hr 03/23/21 14:16 03/23/21 15:47 Magnesium Sulfate / D5w IV 03/23/21 16:15 100 mls/hr Q1H DARRION Administration Sodium Chloride 1,000 mls @ 250 mls/hr 03/23/21 14:30 03/23/21 15:22 Nss 1000ml IV 04/22/21 14:29 999 mls/hr .Q4H DARRION Infusion Norepinephrine Bitartrate 8 mg in 508 mls @ 23.736 mls/hr 03/23/21 15:00 03/23/21 15:37 Levophed/D5w IV 04/22/21 14:59 0.15 mcg/kg/min .[id number] DARRION 50.9 mls/hr Titration Protocol 0.07 MCG/KG/MIN Past Medical History Medical History Arthritis Depression Hyperlipidemia Hypertension Social History Smoking Status: Never smoker Hx Alcohol Use: No Hx Substance Use: No Physical Exam Vital Signs Last Vital Signs Temp 98.2 F 03/23/21 13:18 Pulse 82 03/23/21 15:45 Resp 30 H 03/23/21 15:45 BP 91/56 L 03/23/21 15:45 Pulse Ox 95 03/23/21 15:45 Testing Laboratory Results 03/23/21 13:10 03/23/21 13:10 PT 13.3 Seconds (9.0-12.0) H 03/23/21 13:10 INR 1.3 (0.9-1.1) H 03/23/21 13:10 APTT 29.6 Seconds (21.0-31.0) 03/23/21 13:10 Urine Color Dark Yellow 03/23/21 13:50 Urine Appearance Turbid (Clear) A 03/23/21 13:50 Urine pH 5.0 (4.5-7.5) 03/23/21 13:50 Ur Specific [place] 1.018 (1.000-1.030) 03/23/21 13:50 Urine Protein 2+ (Negative) H 03/23/21 13:50 Urine Glucose (UA) Negative (Negative) 03/23/21 13:50 Urine Ketones Negative (Negative) 03/23/21 13:50 Urine Nitrite Negative (Negative) 03/23/21 13:50 Ur Leukocyte Esterase 3+ (Negative) H 03/23/21 13:50 Urine WBC (Auto) >30 /hpf (0-5) H 03/23/21 13:50 Urine RBC (Auto) 5-10 /hpf (0-4) H 03/23/21 13:50 U Hyaline Cast (Auto) 5-10 /lpf (0-5) H 03/23/21 13:50 U Epithel Cells (Auto) >30 /lpf (0-5) H 03/23/21 13:50 Urine Bacteria (Auto) 4+ (Negative) H 03/23/21 13:50 03/23/21 03/23/21 14:06 13:59 POC Glucose (other) 122 H 125 H Electrocardiogram Date: 03/23/21 Normal sinus rhythm, rate 83 bpm Prolonged QT Abnormal ECG When compared with ECG of 14-FEB-2021 21:29, T wave amplitude has increased in Anterolateral leads Chest X-Ray Date: 03/23/21 IMPRESSION: 1. No active disease in the chest. 2. Hiatal hernia.
[2021-03-23] MEDS ORDERED: fentaNYL citrate 100 MCG/2 ML VIAL IV PRN (16:12)
[2021-03-23] MEDS ORDERED: ePHEDrine sulfate 50 MG/ML AMP IV PRN (16:12)
[2021-03-23] MEDS ORDERED: ATROPINE SULFATE 0.1 MG/ML 10ML SYR IV PRN (16:12)
[2021-03-23] MEDS ORDERED: ONDANSETRON INJ 2 MG/ML 2 ML VIAL IV PRN (16:12)
[2021-03-23] MEDS ORDERED: MIDAZOLAM HCL 1 MG/ML 2ML VIAL ONE (16:55)
[2021-03-23] MEDS ORDERED: fentaNYL citrate 100 MCG/2 ML VIAL ONE (16:55)
--- NOTE | 2021-03-23 17:02 | XRay Report ---
SINGLE VIEW CHEST CLINICAL HISTORY: Central venous catheter placement. FINDINGS: An AP, portable, supine chest radiograph is compared to chest x-ray and chest CT performed earlier the same day dated 03/23/2021. A left internal jugular central venous catheter has been placed. The tip projects over the SVC. The heart is mildly enlarged noting atherosclerotic calcification of the thoracic aorta. The pulmonary vasculature is noncongested. A hiatal hernia is noted. Chronic inte rstitial thickening is similar to previous. No airspace consolidation or large pleural effusion is id entified. No pneumothorax is seen. The skeletal structures are osteopenic. The bony thorax is grossly intact. 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 IMPRESSION: 1. A left internal jugular central venous catheter has been placed as above. No pneumothorax is seen post procedure. 2. Hiatal hernia. 3. No airspace consolidation or large pleural effusion is identified. ACT 112: Negative or not required by law. Electronically signed by: Wai Prather M.D. 03/23/2021 5:01 PM
[2021-03-23] MEDS ORDERED: DIATRIZOATE MEGLUMINE 30% 100ML VIAL INSTIL ONE (17:16)
--- NOTE | 2021-03-23 17:21 | Operative Report ---
[facility] Post Operative Report Pre & Post Diagnosis Operation Date: 03/23/21 15:50 Pre-Op Diagnosis: Right kidney stone, sepsis Post-Op Diagnosis: Right kidney stone, sepsis I identified the patient and participated in the time-out.: Yes Procedure Operation Date: 03/23/21 15:50 Actual Procedures p Cystoscopy, Right Retrograde Pyelogram, Right Ureter Stent Placement (Right) - Earle Tavarez DO Surgeon Earle Tavarez, II, DO [employer] Se[employer] Manager None Estimated Blood Loss 1 Findings Consistent with Post-Op Diagnosis Stent placed in good position. Severely purulent urine in right renal pelvis with obstruction of mid ureter. Specimens Urine Right Renal Pelvis. Drains 6 x 24 Right Stent. Anesthesia Type MAC Complications none Disposition Disposition: Recovery Room Indications Patient with obstruction and sepsis. Emergent procedure. Risks and benefits discussed at length. Description of Procedure Patient was consented and brought back to the operating room. Patient was placed under anesthesia in the supine position and moved to the dorsal lithotomy position. Patient was prepped and draped in the regular sterile fashion. A time out was completed. A 30degree Cystoscope was placed into the bladder and the entire bladder was examined. The UO's were identified. The UO was cannulized with a catheter, urine was aspirated, and a retrograde pyelogram was completed. Purulent urine was sent for culture. A wire was then placed. With the wire in place, a 6 Fr Double J stent was placed. It was confirmed with fluoroscopy. With the stent in place, the bladder was emptied. The scope was removed. The patient was cleaned, aroused from anesthesia, and transferred to the pacu in stable condition having tolerated the procedure well with no complications. I was present and participated in all aspects of the procedure. The patient will be monitored in the PACU until transferred. I attest to the content of the Intraoperative Record and any orders documented therein. Any exceptions are noted below.
--- NOTE | 2021-03-23 17:24 | Emergency Department Note ---
Impression & Plan Septic shock, Pulmonary embolism, Hydronephrosis due to obstruction of ureter, Ureterolithiasis, Elevated troponin ED Provider Note NAME: IRASEMA KRISHNAMURTHY AGE: 80 SEX: F ARRIVES VIA: Ambulance INFORMANT: Patient, ED PROVIDER(S): Salvador Cali MD CHIEF COMPLAINT: Fever, weak, vomiting. PLAN: Disposition: Admit MEDICAL DECISION MAKING: The patient is a pleasant 80-year-old woman with a past medical history of hypertension, hyperlipidemia, status post right intramedullary sundar for hip fracture on 02/15/2021 who presents to the emergency department accompanied by her daughter with concern for worsening malaise, weakness, fevers that began yesterday in the setting of having symptoms evolve over the past week with associated nausea and vomiting which was intractable last night. The patient did have a bowel movement this morning that was mucousy and loose but has not had regular diarrhea. They deny cough, congestion, chest pain, shortness of breath, obvious urinary symptoms. She has had decreased oral intake including hydration over the past week. Today the patient was finally convinced to come to the hospital for evaluation by her daughter after she became near syncopal and her daughter had to hold her up to keep her from falling. They report the patient had been on prophylactic anticoagulation after her surgery but had c ompleted this treatment. On arrival the patient is ill-appearing, afebrile with heart rate in the in the 80s but in the setting of being on a beta-jose and blood pressure 70/40s, tachypneic in the 30s with O2 saturation in the low 90s on room air. On exam the patient appears clinically dry. Lungs with decreased breath sounds at the bases but otherwise clear. Abdomen is nontender. EKG without overt acute ischemia. Chest x-ray negative for acute cardiopulmonary process. WBC 18.7K, which is acutely elevated with left shift. H/H 11.2/34.3 improved from previous post surgery values. Platelets within normal limits. VBG without overt acidemia however with compensation from hyperventilation with chemistry showing anion gap metabolic acidosis with bicarbonate of 16 and anion gap of 18. Initial lactate is 7.9. Creatinine is acutely elevated as well at 2.09 with BUN 40 consistent with the patient's clinical dry appearance. Magnesium 1.6 with repletion initiated. LFTs without significant elevations. Troponin is elevated at 0.170 likely demand in the setting of suspected sepsis. BNP 7K prior values for comparison however likely related to multiorgan involvement in setting of sepsis. Lipase not elevated. Procalcitonin>200. UA is consistent with infection with leukoesterase, WBCs and 4+ bacteria. Given the patient's recent surgery having completed prophylactic anticoagulation following her hip fracture CTA with contrast was indicated given the patient's acute hemodynamic instability and illness despite the patient's renal failure. CT abdomen abdomen pelvis also performed. Findings were notable for a 7 mm right-sided proximal ureteral stone with associated hydronephrosis and CT evidence of infection. Additional note is made of right-sided segmental pulmonary embolus within a branch of the right upper lobe pulmonary artery. However unlikely to be playing significant role in the patient's hemodynamic instability at this time. Critical illness of the patient was reviewed with the patient and her daughter at the bedside. They confirmed that the patient is full code. On arrival the patient was treated empirically for sepsis with Zosyn and vancomycin including aggressive IV fluid hydration for hypotension. Initial limited bedside cardiac ultrasound did demonstrate greater than 50% IVC collapse with inspiration suggestive of hypovolemia. At that time there was no overt reduction in EF. RV size is mildly increased but no overt wall motion abnormalit y. The patient was initially fluid responsive with blood pressure improving to the 90s but she again became hypotensive and so Levophed was started peripherally and the patient was consented for central line which was performed without complication per procedure note. I did review the case with Dr. Tavarez, PA urology on-call and agreed with plan to take the patient to the OR. I also reviewed the case with Dr. Alvarez, ICU upper lining cementer who is aware of the patient. Case was additionally discussed with Dr. [place]ak[place] [facility] who evaluated the patient for admission to ICU following OR. Triage Nursing notes reviewed and agree them. Prior medical records reviewed Vital Signs: reviewed and remarkable for hypotension. Differential diagnosis: Sepsis, UTI, pneumonia, metabolic, electrolyte abnormalities, cardiac sources, intracerebral event, toxicologic, neurologic, as well as other pathologies. ER treatment provided: See below. Diagnostics interpreted by me: ECG: Normal sinus rhythm, 83 bpm, no ectopy, no overt ST elevation or dep ression, QTC 493, QRS 74. Cardiac Monitoring: An order for continuous cardiac monitoring was placed and demonstrated normal sinus rhythm, 83 bpm, no ectopy. Laboratory studies: See below Imaging studies: See below Consultation(s): Dr. Tavarez, PA urology on-call. Dr. Alvarez, ICU upper lining cementer. Dr. Blakely [facility] [place] hospitalist. HPI: The patient is a pleasant 80-year-old woman with a past medical history of hypertension, hyperlipidemia, status post right intramedullary sundar for hip fracture on 02/15/2021 who presents to the emergency department accompanied by her daughter with concern for worsening malaise, weakness, fevers that began yesterday in the setting of having symptoms evolve over the past week with associated nausea and vomiting which was intractable last night. The patient did have a bowel movement this morning that was mucousy and loose but has not had regular diarrhea. They deny cough, congestion, chest pain, shortness of breath, obvious urinary symptoms. She has had decreased oral intake including hydration over the past week. Today the patient was finally convinced to come to the hospital for evaluation by her daughter after she became near syncopal and her daughter had to hold her up to keep her from falling. They report the patient had been on prophylactic anticoagulation after her surgery but had completed this treatment. ROS: See above HPI for pertinent positives & negatives. A total of 10 systems reviewed and were otherwise negative. PAST MEDICAL HISTORY:See Below PAST SURGICAL HISTORY:See Below FAMILY HISTORY:See Below SOCIAL HISTORY:See Below HOME MEDICATIONS:See Below ALLERGIES:See Below VITALS:See Below PHYSICAL EXAMINATION: GENERAL: Awake, alert, ill-appearing, in mild distress HENT: Normocephalic, atraumatic. Oropharynx with dry mucous membranes and otherwise unremarkable. EYES: Normal conjunctiva. Sclera non-icteric. NECK: Supple. No nuchal rigidity. FROM. No JVD. RESPIRATORY: Diminished at bases, otherwise clear to auscultation. CARDIAC: Regular rate, normal rhythm. Extremities warm and well perfused. Pulses equal. ABDOMEN: Soft, non-distended. No tenderness to palpation. No rebound or guarding. No masses. RECTAL: Deferred. MUSCULOSKELETAL: Chest examination reveals no tenderness. The back is symmetrical on inspection without obvious abnormality. There is no CVA tende rness to palpation. No joint edema. LOWER EXTREMITIES: Calves are equal size bilaterally and non-tender. No edema. No discoloration. NEURO: Normal sensorium. No sensory or motor deficits noted. SKIN: Right hip incision site well healed without erythema, warmth or tenderness. No rash or jaundice noted. ED COURSE: Procedures: Central Venous Catheter Indication: Sepsis Catheter type: 7f Triple lumen Location: Left IJ Verbal consent was obtained after the risks and benefits were explained, including but not limited to pneumothorax, hemothorax, vessel injury, bleeding, scarring, infection, pain, and bone/joint/nerve damage. At this time, the risks of the procedure are less than the risks of NOT performing the procedure. A time out was taken and the correct patient and site identified. The patient was placed in the supine position and the skin was prepped in the standard fashion with chlorhexidine and full sterile drapes applied. The proper landmarks were identified with ultrasound, anesthetized with 1% lidocaine without epinephrine, and the needle was inserted through the skin in the standard fashion. The needle was carefully advanced into blood vessel lumen under ultrasound guidance. The guidewire was placed uneventfully. The vessel is dilated and the catheter was placed. It was sutured into position. There was good blood return from all ports. The patient tolerated the procedure well and there were no complications. Post procedure x-ray showed appropriate placement. No PTX. Critical Care: I have personally spent greater than 95 minutes of critical care time in the direct management of this patient. This includes bedside care, interpretation of diagnostic studies, and testing, discussion with consultants, patient, and family members, and other required patient management activities. This 95 minutes is in excess of all separately billable procedures. 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-related osteoporosis Surgical History Status post hip surgery Social History Smoking Status: Never smoker Hx Alcohol Use: No Hx Substance Use: No Preferred Language: Burmese Communication Ability: Effective Cash Room Clerk Required: No marital status: / Current Living Situation: Family Current Living Situation Comment: dtr Feels Safe at Home: Yes Assistive Devices: Glasses and Walker Allergies Allergies Allergy/AdvReac Type Severity Reaction Status Date / Time No Known Allergies Allergy Verified 02/14/21 21:46 Home Meds Home Medications Medication Instructions Recorded Confirmed amlodipine 5 mg PO QAM 02/14/21 03/23/21 atenolol 25 mg PO QAM 02/14/21 03/23/21 lisinopril 20 mg PO DAILY 02/14/21 03/23/21 multivitamin 1 tab PO QAM 02/14/21 03/23/21 paroxetine HCl 20 mg PO HS 02/14/21 03/23/21 simvastatin 20 mg PO HS 02/14/21 03/23/21 Results & Data (ED) Vital Signs Vital Signs - 24 hr 03/23/21 13:18 03/23/21 13:22 03/23/21 13:39 Temperature 36.8 C Temperature Source Oral Pulse Rate 85 Pulse Rate [Finger] Respiratory Rate 18 Blood Pressure 72/43 L Blood Pressure [Left Arm] Blood Pressure Mean 52 Blood Pressure Mean [Left Arm] Pulse Oximetry 91 94 97 Oxygen Delivery Method Room Air Nasal Cannula Nasal Cannula Oxygen Flow Rate 2 2 Sepsis Recent Fever Within 48 Hours No Sepsis New/Unexplained Change in Mental Status N/A Sepsis Action Taken by Nursing No Action Required 03/23/21 13:55 03/23/21 14:45 03/23/21 15:06 Temperature Temperature Source Pulse Rate Pulse Rate [Finger] 78 77 Respiratory Rate 36 H 30 H Blood Pressure Blood Pressure [Left Arm] 72/46 L 81/51 L Blood Pressure Mean Blood Pressure Mean [Left Arm] 54 61 Pulse Oximetry 97 96 95 Oxygen Delivery Method Nasal Cannula Nasal Cannula Nasal Cannula Oxygen Flow Rate 2 2 2 Sepsis Recent Fever Within 48 Hours Sepsis New/Unexplained Change in Mental Status Sepsis Action Taken by Nursing 03/23/21 15:12 03/23/21 15:19 03/23/21 15:24 Temperature Temperature Source Pulse Rate Pulse Rate [Finger] 76 78 79 Respiratory Rate 24 24 30 H Blood Pressure Blood Pressure [Left Arm] 76/56 L 83/58 L 87/59 L Blood Pressure Mean Blood Pressure Mean [Left Arm] 62 66 68 Pulse Oximetry 94 95 93 Oxygen Delivery Method Nasal Cannula Nasal Cannula Nasal Cannula Oxygen Flow Rate 2 2 2 Sepsis Recent Fever Within 48 Hours Sepsis New/Unexplained Change in Mental Status Sepsis Action Taken by Nursing 03/23/21 15:29 03/23/21 15:35 03/23/21 15:45 Temperature Temperature Source Pulse Rate Pulse Rate [Finger] 80 81 82 Respiratory Rate 30 H 30 H 30 H Blood Pressure Blood Pressure [Left Arm] 88/57 L 89/74 L 91/56 L Blood Pressure Mean Blood Pressure Mean [Left Arm] 67 79 67 Pulse Oximetry 95 96 95 Oxygen Delivery Method Nasal Cannula Nasal Cannula Oxymask Oxygen Flow Rate 2 3 5 Sepsis Recent Fever Within 48 Hours Sepsis New/Unexplained Change in Mental Status Sepsis Action Taken by Nursing 03/23/21 15:57 03/23/21 16:04 03/23/21 16:27 Temperature Temperature Source Pulse Rate Pulse Rate [Finger] 82 83 84 Respiratory Rate 28 H 30 H 30 H Blood Pressure Blood Pressure [Left Arm] 96/64 L 97/55 L 93/74 L Blood Pressure Mean Blood Pressure Mean [Left Arm] 74 69 80 Pulse Oximetry 100 99 99 Oxygen Delivery Method Oxymask Oxymask Oxymask Oxygen Flow Rate 5 5 5 Sepsis Recent Fever Within 48 Hours Sepsis New/Unexplained Change in Mental Status Sepsis Action Taken by Nursing 03/23/21 16:40 Temperature Temperature Source Pulse Rate Pulse Rate [Finger] 85 Respiratory Rate 30 H Blood Pressure Blood Pressure [Left Arm] 90/63 L Blood Pressure Mean Blood Pressure Mean [Left Arm] 72 Pulse Oximetry 95 Oxygen Delivery Method Oxymask Oxygen Flow Rate Sepsis Recent Fever Within 48 Hours Sepsis New/Unexplained Change in Mental Status Sepsis Action Taken by Nursing Laboratory Data Attestation: I reviewed the patient's lab results. Result diagrams: 03/23/21 13:10 03/23/21 13:10 Lab Results 03/23/21 03/23/21 03/23/21 Range/Units 13:10 13:10 13:10 WBC 18.77 H (4.8-10.8) K/uL RBC 3.88 L (4.2-5.4) M/uL Hgb 11.2 L (12.0-16.0) g/dL POC Hgb (12.0-16.0) g/dl Hct 34.3 L (37-47) % POC Hct (37-47) % MCV 88.4 (80-100) fL MCH 28.9 (25-34) pg MCHC 32.7 (32-36) g/dL RDW Std Deviation 48.3 H (36.4-46.3) fL RDW Coeff of Adolfo 14.9 H (11.5-14.5) % Plt Count 245 (130-400) K/uL MPV 12.1 H (7.4-10.4) fL Immature Gran % (Auto) 1.6 % Neut % (Auto) 94.3 % Lymph % (Auto) 2.0 % [place] % (Auto) 1.4 % Eos % (Auto) 0.6 % Baso % (Auto) 0.1 % Neut # (Auto) 17.70 H (1.4-6.5) K/uL Lymph # (Auto) 0.38 L (1.2-3.4) K/uL [place] # (Auto) 0.27 (0.11-0.59) K/uL Eos # (Auto) 0.11 (0-0.5) K/uL Baso # (Auto) 0.01 (0-0.2) K/uL Immature Gran # (Auto) 0.30 H (0.00-0.02) K/uL Toxic Vacuolation 3+ Dohle Bodies 2+ Echinocytes 1+ PT 13.3 H (9.0-12.0) Seconds INR 1.3 H (0.9-1.1) APTT 29.6 (21.0-31.0) Seconds PTT Ratio 1.1 VBG pH (7.36-7.41) VBG pCO2 (38-50) mmHg VBG pO2 mmHg VBG HCO3 mmol/L VBG O2 Saturation % VBG Base Excess mEq/L Barometric Pressure mm/Hg POC Sodium (135-144) mmol/L Sodium 140 (136-145) mmol/L POC Potassium (3.3-5.0) mmol/L Potassium 3.5 (3.5-5.1) mmol/L POC Chloride (101-112) mmol/L Chloride 106 (98-107) mmol/L Carbon Dioxide 16 L (21-32) mmol/L POC Total CO2 (24-31) mmol/L Anion Gap 18.0 H (3-11) POC Anion Gap (16-25) mmol/L POC BUN (7-18) mg/dl BUN 40 H (7-18) mg/dl Creatinine 2.09 H (0.6-1.2) mg/dl POC Creatinine (0.6-1.3) mg/dl Est Cr Clr Drug Dosing 23.5 ml/min Est GFR ( Amer) 25.6 Est GFR (Non-Af Amer) 22.1 BUN/Creatinine Ratio 18.9 (10-20) Glucose 143 H (70-99) mg/dl POC Glucose (other) (70-99) mg/dl Lactate (0.4-2.0) mmol/L Calcium 9.6 (8.5-10.1) mg/dl POC Ioniz Calcium [place] (1.12-1.32) mmol/l Phosphorus 3.1 (2.5-4.9) mg/dl Magnesium 1.6 L (1.8-2.4) mg/dl Total Bilirubin 1.1 H (0.2-1) mg/dl Direct Bilirubin 0.7 H (0-0.2) mg/dl AST 46 H (15-37) U/L ALT 63 (12-78) U/L Alkaline Phosphatase 435 H (45-117) U/L Total Creatine Kinase 39 (26-192) U/L Troponin I 0.170 H* (0-0.045) ng/ml NT-Pro-B Natriuret Pep 7078 H (0-1800) pg/ml Total Protein 6.1 L (6.4-8.2) gm/dl Albumin 2.6 L (3.4-5.0) gm/dl Globulin 3.5 (2.5-4.0) gm/dl Albumin/Globulin Ratio 0.7 L (0.9-2) Lipase 38 L (73-393) U/L Procalcitonin (0-0.5) ng/ml Urine Color Urine Appearance (Clear) Urine pH (4.5-7.5) Ur Specific [place] (1.000-1.030) Urine Protein (Negative) Urine Glucose (UA) (Negative) Urine Ketones (Negative) Urine Blood (Negative) Urine Nitrite (Negative) Urine Bilirubin (Negative) Urine Urobilinogen (Negative) Ur Leukocyte Esterase (Negative) Urine WBC (Auto) (0-5) /hpf Urine RBC (Auto) (0-4) /hpf U Hyaline Cast (Auto) (0-5) /lpf U Epithel Cells (Auto) (0-5) /lpf Urine Bacteria (Auto) (Negative) Urine Yeast COVID-19 Eval Order SARS-CoV-2 (PCR) (Negative) Influenza Type A (PCR) (Neg) Influenza Type B (PCR) (Neg) RSV (RT-PCR) (Neg) 03/23/21 03/23/21 03/23/21 Range/Units 13:10 13:37 13:37 WBC (4.8-10.8) K/uL RBC (4.2-5.4) M/uL Hgb (12.0-16.0) g/dL POC Hgb (12.0-16.0) g/dl Hct (37-47) % POC Hct (37-47) % MCV (80-100) fL MCH (25-34) pg MCHC (32-36) g/dL RDW Std Deviation (36.4-46.3) fL RDW Coeff of Adolfo (11.5-14.5) % Plt Count (130-400) K/uL MPV (7.4-10.4) fL Immature Gran % (Auto) % Neut % (Auto) % Lymph % (Auto) % [place] % (Auto) % Eos % (Auto) % Baso % (Auto) % Neut # (Auto) (1.4-6.5) K/uL Lymph # (Auto) (1.2-3.4) K/uL [place] # (Auto) (0.11-0.59) K/uL Eos # (Auto) (0-0.5) K/uL Baso # (Auto) (0-0.2) K/uL Immature Gran # (Auto) (0.00-0.02) K/uL Toxic Vacuolation Dohle Bodies Echinocytes PT (9.0-12.0) Seconds INR (0.9-1.1) APTT (21.0-31.0) Seconds PTT Ratio VBG pH (7.36-7.41) VBG pCO2 (38-50) mmHg VBG pO2 mmHg VBG HCO3 mmol/L VBG O2 Saturation % VBG Base Excess mEq/L Barometric Pressure mm/Hg POC Sodium (135-144) mmol/L Sodium (136-145) mmol/L POC Potassium (3.3-5.0) mmol/L Potassium (3.5-5.1) mmol/L POC Chloride (101-112) mmol/L Chloride (98-107) mmol/L Carbon Dioxide (21-32) mmol/L POC Total CO2 (24-31) mmol/L Anion Gap (3-11) POC Anion Gap (16-25) mmol/L POC BUN (7-18) mg/dl BUN (7-18) mg/dl Creatinine (0.6-1.2) mg/dl POC Creatinine (0.6-1.3) mg/dl Est Cr Clr Drug Dosing ml/min Est GFR ( Amer) Est GFR (Non-Af Amer) BUN/Creatinine Ratio (10-20) Glucose (70-99) mg/dl POC Glucose (other) (70-99) mg/dl Lactate (0.4-2.0) mmol/L Calcium (8.5-10.1) mg/dl POC Ioniz Calcium [place] (1.12-1.32) mmol/l Phosphorus (2.5-4.9) mg/dl Magnesium (1.8-2.4) mg/dl Total Bilirubin (0.2-1) mg/dl Direct Bilirubin (0-0.2) mg/dl AST (15-37) U/L ALT (12-78) U/L Alkaline Phosphatase (45-117) U/L Total Creatine Kinase (26-192) U/L Troponin I (0-0.045) ng/ml NT-Pro-B Natriuret Pep (0-1800) pg/ml Total Protein (6.4-8.2) gm/dl Albumin (3.4-5.0) gm/dl Globulin (2.5-4.0) gm/dl Albumin/Globulin Ratio (0.9-2) Lipase (73-393) U/L Procalcitonin > 200.00 H (0-0.5) ng/ml Urine Color Urine Appearance (Clear) Urine pH (4.5-7.5) Ur Specific [place] (1.000-1.030) Urine Protein (Negative) Urine Glucose (UA) (Negative) Urine Ketones (Negative) Urine Blood (Negative) Urine Nitrite (Negative) Urine Bilirubin (Negative) Urine Urobilinogen (Negative) Ur Leukocyte Esterase (Negative) Urine WBC (Auto) (0-5) /hpf Urine RBC (Auto) (0-4) /hpf U Hyaline Cast (Auto) (0-5) /lpf U Epithel Cells (Auto) (0-5) /lpf Urine Bacteria (Auto) (Negative) Urine Yeast COVID-19 Eval Order CovFluRsv at [facility] SARS-CoV-2 (PCR) NEGATIVE (Negative) Influenza Type A (PCR) Negative (Neg) Influenza Type B (PCR) Negative (Neg) RSV (RT-PCR) Negative (Neg) 03/23/21 03/23/21 03/23/21 Range/Units 13:50 13:50 13:50 WBC (4.8-10.8) K/uL RBC (4.2-5.4) M/uL Hgb (12.0-16.0) g/dL POC Hgb (12.0-16.0) g/dl Hct (37-47) % POC Hct (37-47) % MCV (80-100) fL MCH (25-34) pg MCHC (32-36) g/dL RDW Std Deviation (36.4-46.3) fL RDW Coeff of Adolfo (11.5-14.5) % Plt Count (130-400) K/uL MPV (7.4-10.4) fL Immature Gran % (Auto) % Neut % (Auto) % Lymph % (Auto) % [place] % (Auto) % Eos % (Auto) % Baso % (Auto) % Neut # (Auto) (1.4-6.5) K/uL Lymph # (Auto) (1.2-3.4) K/uL [place] # (Auto) (0.11-0.59) K/uL Eos # (Auto) (0-0.5) K/uL Baso # (Auto) (0-0.2) K/uL Immature Gran # (Auto) (0.00-0.02) K/uL Toxic Vacuolation Dohle Bodies Echinocytes PT (9.0-12.0) Seconds INR (0.9-1.1) APTT (21.0-31.0) Seconds PTT Ratio VBG pH 7.34 L (7.36-7.41) VBG pCO2 33 L (38-50) mmHg VBG pO2 29 mmHg VBG HCO3 17 mmol/L VBG O2 Saturation < 60.0 % VBG Base Excess -7.7 mEq/L Barometric Pressure 731.6 mm/Hg POC Sodium (135-144) mmol/L Sodium (136-145) mmol/L POC Potassium (3.3-5.0) mmol/L Potassium (3.5-5.1) mmol/L POC Chloride (101-112) mmol/L Chloride (98-107) mmol/L Carbon Dioxide (21-32) mmol/L POC Total CO2 (24-31) mmol/L Anion Gap (3-11) POC Anion Gap (16-25) mmol/L POC BUN (7-18) mg/dl BUN (7-18) mg/dl Creatinine (0.6-1.2) mg/dl POC Creatinine (0.6-1.3) mg/dl Est Cr Clr Drug Dosing ml/min Est GFR ( Amer) Est GFR (Non-Af Amer) BUN/Creatinine Ratio (10-20) Glucose (70-99) mg/dl POC Glucose (other) (70-99) mg/dl Lactate 7.9 H* (0.4-2.0) mmol/L Calcium (8.5-10.1) mg/dl POC Ioniz Calcium [place] (1.12-1.32) mmol/l Phosphorus (2.5-4.9) mg/dl Magnesium (1.8-2.4) mg/dl Total Bilirubin (0.2-1) mg/dl Direct Bilirubin (0-0.2) mg/dl AST (15-37) U/L ALT (12-78) U/L Alkaline Phosphatase (45-117) U/L Total Creatine Kinase (26-192) U/L Troponin I (0-0.045) ng/ml NT-Pro-B Natriuret Pep (0-1800) pg/ml Total Protein (6.4-8.2) gm/dl Albumin (3.4-5.0) gm/dl Globulin (2.5-4.0) gm/dl Albumin/Globulin Ratio (0.9-2) Lipase (73-393) U/L Procalcitonin (0-0.5) ng/ml Urine Color Dark Yellow Urine Appearance Turbid A (Clear) Urine pH 5.0 (4.5-7.5) Ur Specific [place] 1.018 (1.000-1.030) Urine Protein 2+ H (Negative) Urine Glucose (UA) Negative (Negative) Urine Ketones Negative (Negative) Urine Blood 2+ H (Negative) Urine Nitrite Negative (Negative) Urine Bilirubin Negative (Negative) Urine Urobilinogen Negative (Negative) Ur Leukocyte Esterase 3+ H (Negative) Urine WBC (Auto) >30 H (0-5) /hpf Urine RBC (Auto) 5-10 H (0-4) /hpf U Hyaline Cast (Auto) 5-10 H (0-5) /lpf U Epithel Cells (Auto) >30 H (0-5) /lpf Urine Bacteria (Auto) 4+ H (Negative) Urine Yeast Not Reportable COVID-19 Eval Order SARS-CoV-2 (PCR) (Negative) Influenza Type A (PCR) (Neg) Influenza Type B (PCR) (Neg) RSV (RT-PCR) (Neg) 03/23/21 03/23/21 03/23/21 Range/Units 13:59 14:06 16:34 WBC (4.8-10.8) K/uL RBC (4.2-5.4) M/uL Hgb (12.0-16.0) g/dL POC Hgb 9.2 L 9.2 L (12.0-16.0) g/dl Hct (37-47) % POC Hct 27 L 27 L (37-47) % MCV (80-100) fL MCH (25-34) pg MCHC (32-36) g/dL RDW Std Deviation (36.4-46.3) fL RDW Coeff of Adolfo (11.5-14.5) % Plt Count (130-400) K/uL MPV (7.4-10.4) fL Immature Gran % (Auto) % Neut % (Auto) % Lymph % (Auto) % [place] % (Auto) % Eos % (Auto) % Baso % (Auto) % Neut # (Auto) (1.4-6.5) K/uL Lymph # (Auto) (1.2-3.4) K/uL [place] # (Auto) (0.11-0.59) K/uL Eos # (Auto) (0-0.5) K/uL Baso # (Auto) (0-0.2) K/uL Immature Gran # (Auto) (0.00-0.02) K/uL Toxic Vacuolation Dohle Bodies Echinocytes PT (9.0-12.0) Seconds INR (0.9-1.1) APTT (21.0-31.0) Seconds PTT Ratio VBG pH (7.36-7.41) VBG pCO2 (38-50) mmHg VBG pO2 mmHg VBG HCO3 mmol/L VBG O2 Saturation % VBG Base Excess mEq/L Barometric Pressure mm/Hg POC Sodium 139 139 (135-144) mmol/L Sodium (136-145) mmol/L POC Potassium 3.2 L 3.3 (3.3-5.0) mmol/L Potassium (3.5-5.1) mmol/L POC Chloride 106 107 (101-112) mmol/L Chloride (98-107) mmol/L Carbon Dioxide (21-32) mmol/L POC Total CO2 17 L 17 L (24-31) mmol/L Anion Gap (3-11) POC Anion Gap 20.0 20.0 (16-25) mmol/L POC BUN 33 H 33 H (7-18) mg/dl BUN (7-18) mg/dl Creatinine (0.6-1.2) mg/dl POC Creatinine 2.0 H 1.9 H (0.6-1.3) mg/dl Est Cr Clr Drug Dosing ml/min Est GFR ( Amer) Est GFR (Non-Af Amer) BUN/Creatinine Ratio (10-20) Glucose (70-99) mg/dl POC Glucose (other) 125 H 122 H (70-99) mg/dl Lactate 5.6 H* (0.4-2.0) mmol/L Calcium (8.5-10.1) mg/dl POC Ioniz Calcium [place] 1.15 1.13 (1.12-1.32) mmol/l Phosphorus (2.5-4.9) mg/dl Magnesium (1.8-2.4) mg/dl Total Bilirubin (0.2-1) mg/dl Direct Bilirubin (0-0.2) mg/dl AST (15-37) U/L ALT (12-78) U/L Alkaline Phosphatase (45-117) U/L Total Creatine Kinase (26-192) U/L Troponin I (0-0.045) ng/ml NT-Pro-B Natriuret Pep (0-1800) pg/ml Total Protein (6.4-8.2) gm/dl Albumin (3.4-5.0) gm/dl Globulin (2.5-4.0) gm/dl Albumin/Globulin Ratio (0.9-2) Lipase (73-393) U/L Procalcitonin (0-0.5) ng/ml Urine Color Urine Appearance (Clear) Urine pH (4.5-7.5) Ur Specific [place] (1.000-1.030) Urine Protein (Negative) Urine Glucose (UA) (Negative) Urine Ketones (Negative) Urine Blood (Negative) Urine Nitrite (Negative) Urine Bilirubin (Negative) Urine Urobilinogen (Negative) Ur Leukocyte Esterase (Negative) Urine WBC (Auto) (0-5) /hpf Urine RBC (Auto) (0-4) /hpf U Hyaline Cast (Auto) (0-5) /lpf U Epithel Cells (Auto) (0-5) /lpf Urine Bacteria (Auto) (Negative) Urine Yeast COVID-19 Eval Order SARS-CoV-2 (PCR) (Negative) Influenza Type A (PCR) (Neg) Influenza Type B (PCR) (Neg) RSV (RT-PCR) (Neg) Administered Medications Norepinephrine Bitartrate (Levophed/D5w) 8 mg in 508 mls @ 50.864 mls/hr IV .Q10H [facility]; Protocol Stop: 04/22/21 14:59 Last Titration: 03/23/21 15:37 Dose: 0.15 mcg/kg/min, 50.9 mls/hr Documented by: [id number] Titration: 03/23/21 15:31 Dose: 0.13 mcg/kg/min, 44.1 mls/hr Documented by: [id number] Titration: 03/23/21 15:21 Dose: 0.11 mcg/kg/min, 37.3 mls/hr Documented by: [id number] Titration: 03/23/21 15:12 Dose: 0.09 mcg/kg/min, 30.5 mls/hr Documented by: [id number] Titration: 03/23/21 15:07 Dose: 0.07 mcg/kg/min, 23.7 mls/hr Documented by: [id number] Admin: 03/23/21 14:54 Dose: 0.05 mcg/kg/min, 17 mls/hr Documented by: [id number] Cosigned by: [id number] Discontinued Medications Diatrizoate Meglumine (Diatrizoate Meglumine 30% 100ml Vial) 4 ml INSTIL ONCE ONE Stop: 03/23/21 17:17 Last Admin: 03/23/21 17:16 Dose: 4 ml Documented by: [id number] Sodium Chloride (Nss 1000ml) 1,000 mls @ 999 mls/hr IV .Q1H1M [facility] Stop: 03/23/21 14:38 Last Infusion: 03/23/21 14:08 Dose: 0 mls/hr Documented by: [id number] Admin: 03/23/21 13:53 Dose: 999 mls/hr Documented by: [id number] Sodium Chloride (Nss 1000ml) 1,000 mls @ 999 mls/hr IV .Q1H1M [facility] Stop: 03/23/21 15:38 Last Infusion: 03/23/21 14:09 Dose: 0 mls/hr Documented by: [id number] Admin: 03/23/21 13:54 Dose: 999 mls/hr Documented by: [id number] Acetaminophen (Ofirmev) 1,000 mg in 100 mls @ 400 mls/hr IV NOW STA Stop: 03/23/21 13:53 Last Infusion: 03/23/21 14:25 Dose: 0 mls/hr Documented by: [id number] Admin: 03/23/21 14:04 Dose: 400 mls/hr Documented by: [id number] Famotidine (Pepcid 20mg Iv Push) 20 mg in 5 mls @ 2.5 mls/min IV NOW STA Stop: 03/23/21 13:40 Last Admin: 03/23/21 14:03 Dose: 2.5 mls/min Documented by: [id number] Piperacillin Sod/Tazobactam (Sod 4.5 gm/ Dextrose) 120 mls @ 200 mls/hr IV NOW ONE; Protocol Stop: 03/23/21 14:16 Last Infusion: 03/23/21 14:47 Dose: 0 mls/hr Documented by: [id number] Admin: 03/23/21 14:04 Dose: 200 mls/hr Documented by: [id number] Vancomycin HCl 2,250 mg/ (Sodium Chloride) 545 mls @ 200 mls/hr IV NOW ONE Stop: 03/23/21 16:24 Last Admin: 03/23/21 14:36 Dose: 200 mls/hr Documented by: [id number] Magnesium Sulfate/Dextrose (Magnesium Sulfate / D5w) 1 gm in 100 mls @ 100 mls/hr IV Q1H [facility] Stop: 03/23/21 16:15 Last Infusion: 03/23/21 16:47 Dose: 0 mls/hr Documented by: [id number] Admin: 03/23/21 15:47 Dose: 100 mls/hr Documented by: [id number] Infusion: 03/23/21 15:46 Dose: 0 mls/hr Documented by: [id number] Admin: 03/23/21 14:43 Dose: 100 mls/hr Documented by: [id number] Sodium Chloride (Nss 1000ml) 1,000 mls @ 250 mls/hr IV .Q4H [facility] Stop: 04/22/21 14:29 Last Infusion: 03/23/21 15:22 Dose: 999 mls/hr Documented by: [id number] Admin: 03/23/21 14:36 Dose: 250 mls/hr Documented by: [id number] Lactated Ringer's (Lr) 1,000 mls @ 999 mls/hr IV .Q1H1M ONE Stop: 03/23/21 15:47 Last Infusion: 03/23/21 16:26 Dose: 0 mls/hr Documented by: [id number] Admin: 03/23/21 15:22 Dose: 999 mls/hr Documented by: [id number] Ioversol (Optiray 350 500ml) 116 ml IV ONCE ONE Stop: 03/23/21 14:11 Last Admin: 03/23/21 14:10 Dose: 116 ml Documented by: [id number] Ondansetron HCl (Ondansetron Inj 2 Mg/Ml 2 Ml Vial) 4 mg IV NOW STA Stop: 03/23/21 13:40 Last Admin: 03/23/21 14:03 Dose: 4 mg Documented by: [id number] Imaging Data Radiologist's Impression: Chest X-Ray 03/23/21 13:37 SINGLE VIEW CHEST CLINICAL HISTORY: Sepsis. FINDINGS: An AP, portable, upright chest radiograph is compared to study dated 02/14/2021. There is a hiatal hernia. The cardiomediastinal silhouette is unremarkable noting atherosclerotic calcification of the thoracic aorta. Chronic interstitial thickening is similar to previous. There is bibasilar atelectasis. No airspace consolidation or large pleural effusion is identified. No pneumothorax is seen. The skeletal structures are osteopenic. The bony thorax is grossly intact. IMPRESSION: 1. No active disease in the chest. 2. Hiatal hernia. ACT 112: Negative or not required by law. Electronically signed by: Wai Prather M.D. 03/23/2021 2:05 PM Abdomen/Pelvis CT 03/23/21 13:49 CT ANGIOGRAM OF THE CHEST; CT SCAN OF THE ABDOMEN AND PELVIS WITH IV CONTRAST CLINICAL HISTORY: Fever. Hypoxia. Vomiting. Generalized abdominal pain. COMPARISON STUDY: Chest x-ray dated 03/23/2021. Pelvic radiograph dated 02/14/2021. TECHNIQUE: Following the IV administration of 116 of Optiray 350, CT angiogram of the chest is performed from the upper abdomen to the thoracic inlet utilizing the pulmonary embolus protocol. Images are reviewed in the axial, sagittal, coronal planes. 3-D MIPS images are created and assessed. Subsequently, CT scan of the abdomen and pelvis was performed from the lung bases to the proximal femora. Images are reviewed in the axial, sagittal, and coronal planes. IV contrast was administered without complication. A dose lowering technique was utilized adhering to the principles of ALARA. CT DOSE: 1217.64 mGy.cm FINDINGS: CHEST: Thyroid: Mildly atrophic and heterogeneous. Thoracic aorta: There is atherosclerotic calcification of the thoracic aorta, which is normal in caliber and demonstrates 4-vessel variant arch anatomy. No dissection is seen. Pulmonary vasculature: Dilatation of the main pulmonary arteries suggests pulmonary artery hypertension. There is segmental pulmonary embolism within an anterior branch of the right upper lobe pulmonary artery seen on image #142. No additional pulmonary emboli are identified Heart: The heart is enlarged and without pericardial effusion. Lungs and pleural spaces: Evaluation of the lung parenchyma is modestly degraded by motion artifact. There is trace right pleural effusion. Scarring/atelectasis is noted at both lung bases. There is no airspace consolidation typical for pneumonia. The trachea and central airways are clear. Mediastinum: Scattered subcentimeter mediastinal lymph nodes are not path ologically enlarged by size criteria. Chikis: Clear. Axillae: There is no axillary lymphadenopathy. Bony thorax: The skeletal structures are osteopenic. There are mild superior endplate compression deformities of T3, T4, T5, T6, and T10. Degenerative change and hyperkyphosis are noted in the thoracic spine. No lytic or blastic lesions are identified. ABDOMEN AND PELVIS: Liver: The contrast-enhanced liver is enlarged, measuring 18.5 cm in length. The liver is otherwise normal in contour and attenuation. There is no intrahepatic or ductal dilatation. The hepatic veins and portal veins are patent. There is mild periportal edema. Gallbladder: Unremarkable. Spleen: Normal in size and attenuation. There are subtle indeterminant splenic hypodensities which measure up to 1.3 cm. There are 2.0 cm, 1.8 cm, 1.5 cm, and 1.2 cm peripherally calcified splenic artery aneurysms. Pancreas: Moderately atrophic and grossly unremarkable. Adrenal glands: The adrenal glands appear hyperemic. Kidneys: The contrast enhanced kidneys are normal in size. There is a 7 mm obstructing calculus in the right proximal ureter at the level of L3 located just below the ureteropelvic junction. This is best seen on image #164 and causes mild to moderate right hydronephrosis. No additional calculi are identified in either kidney on this contrast-enhanced examination. There is no left-sided hydronephrosis. The kidneys enhance symmetrically. Urothelial thickening and enhancement within the right renal pelvis and right proximal ureter are likely related to obstruction/hydronephrosis. A circumaortic left renal vein is incidentally noted. 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 Abdominal vasculature: The abdominal aorta is normal in course and caliber noting moderate atherosclerotic calcification. Stomach and bowel: There is a moderate to large hiatal hernia, with over half of the stomach located in the thoracic cavity. There is mild to moderate colonic diverticulosis without CT evidence of acute diverticulitis. No bowel obstruction is identified. The appendix is well-visualized and normal. Peritoneum: There is no intraperitoneal free air or abdominal ascites. There is a small fat-containing umbilical hernia. Lymphadenopathy: None. Pelvic viscera: The bladder is decompressed around a Watkins catheter. The bladder wall appears markedly thickened and there is pericystic inflammation. The endometrium appears significantly thickened for age measuring up to 1.7 cm. No adnexal lesion is identified. Skeletal structures: The skeletal structures are osteopenic. No lytic or blastic lesions are seen. There is mild lumbosacral spondylosis. There are superior endplate compression deformities of L3, L4, and L5. There is an acute to subacute right proximal femoral fracture with intertrochanteric and intramedullary nails in place. There is mild surrounding hemorrhage. No organized hematoma is identified. IMPRESSION: 1. There is segmental pulmonary embolus within a branch of the right upper lobe pulmonary artery. 2. Cardiomegaly and trace right pleural effusion. 3. Large hiatal hernia. 4. No airspace consolidation is identified typical for pneumonia. 5. There is a 7 mm obstructing calculus in the right proximal ureter located just below the ureteropelvic junction. This causes mild to moderate right hydronephrosis. 6. Urothelial thickening and enhancement in the right renal pelvis and proximal ureter is nonspecific and may be related to obstruction/hydronephrosis. Correlate clinically and with urinalysis for evidence of superimposed urinary tract infection. 7. The bladder is decompressed around a Watkins catheter. The bladder appears markedly thick walled with pericystic inflammation. The appearance suggests cystitis, and again this should be correlated with clinical findings and urinalysis. 8. 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 9. The endometrium appears markedly thickened for age measuring up to 1.7 cm. This is not well assessed by CT and nonemergent follow-up with gynecology and pelvic ultrasound is recommended for further assessment. 10. The adrenal glands appear hyperemic. This a nonspecific finding but can be seen with hypovolemia/hypotension. Clinical correlation will be required. 11. Colonic diverticulosis without CT evidence of acute diverticulitis. 12. There is an acute to subacute fracture of the right proximal femur with intertrochanteric and intramedullary nails in place. 13. There are numerous mild and age indeterminant thoracolumbar compression deformities. See above. 14. Additional findings as above. ACT 112: Positive. There are findings on this exam that require communication between the performing entity and the patient following Patient Test Result I nformation Act ([place] Act 112) guidelines. Electronically signed by: Wai Prather M.D. 03/23/2021 2:57 PM Chest CTA 03/23/21 13:50 CT ANGIOGRAM OF THE CHEST; CT SCAN OF THE ABDOMEN AND PELVIS WITH IV CONTRAST CLINICAL HISTORY: Fever. Hypoxia. Vomiting. Generalized abdominal pain. COMPARISON STUDY: Chest x-ray dated 03/23/2021. Pelvic radiograph dated 02/14/2021. TECHNIQUE: Following the IV administration of 116 of Optiray 350, CT angiogram of the chest is performed from the upper abdomen to the thoracic inlet utilizing the pulmonary embolus protocol. Images are reviewed in the axial, sagittal, coronal planes. 3-D MIPS images are created and assessed. Subsequently, CT scan of the abdomen and pelvis was performed from the lung bases to the proximal femora. Images are reviewed in the axial, sagittal, and coronal planes. IV contrast was administered without complication. A dose lowering technique was utilized adhering to the principles of ALARA. CT DOSE: 1217.64 mGy.cm FINDINGS: CHEST: Thyroid: Mildly atrophic and heterogeneous. Thoracic aorta: There is atherosclerotic calcification of the thoracic aorta, which is normal in caliber and demonstrates 4-vessel variant arch anatomy. No dissection is seen. Pulmonary vasculature: Dilatation of the main pulmonary arteries suggests pulmonary artery hypertension. There is segmental pulmonary embolism within an anterior branch of the right upper lobe pulmonary artery seen on image #142. No additional pulmonary emboli are identified Heart: The heart is enlarged and without pericardial effusion. Lungs and pleural spaces: Evaluation of the lung parenchyma is modestly degraded by motion artifact. There is trace right pleural effusion. Scarring/atelectasis is noted at both lung bases. There is no airspace consolidation typical for pneumonia. The trachea and central airways are clear. Mediastinum: Scattered subcentimeter mediastinal lymph nodes are not pathologically enlarged by size criteria. Chikis: Clear. Axillae: There is no axillary lymphadenopathy. Bony thorax: The skeletal structures are osteopenic. There are mild superior en dplate compression deformities of T3, T4, T5, T6, and T10. Degenerative change and hyperkyphosis are noted in the thoracic spine. No lytic or blastic lesions are identified. ABDOMEN AND PELVIS: Liver: The contrast-enhanced liver is enlarged, measuring 18.5 cm in length. The liver is otherwise normal in contour and attenuation. There is no intrahepatic or ductal dilatation. The hepatic veins and portal veins are patent. There is mi ld periportal edema. Gallbladder: Unremarkable. Spleen: Normal in size and attenuation. There are subtle indeterminant splenic hypodensities which measure up to 1.3 cm. There are 2.0 cm, 1.8 cm, 1.5 cm, and 1.2 cm peripherally calcified splenic artery aneurysms. Pancreas: Moderately atrophic and grossly unremarkable. Adrenal glands: The adrenal glands appear hyperemic. Kidneys: The contrast enhanced kidneys are normal in size. There is a 7 mm obstructing calculus in the right proximal ureter at the level of L3 located just below the ureteropelvic junction. This is best seen on image #164 and causes mild to moderate right hydronephrosis. No additional calculi are identified in either kidney on this contrast-enhanced examination. There is no left-sided hydronephrosis. The kidneys enhance symmetrically. Urothelial thickening and enhancement within the right renal pelvis and right proximal ureter are likely related to obstruction/hydronephrosis. A circumaortic left renal vein is incidentally noted. 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 Abdominal vasculature: The abdominal aorta is normal in course and caliber noting moderate atherosclerotic calcification. Stomach and bowel: There is a moderate to large hiatal hernia, with over half of the stomach located in the thoracic cavity. There is mild to moderate colonic diverticulosis without CT evidence of acute diverticulitis. No bowel obstruction is identified. The appendix is well-visualized and normal. Peritoneum: There is no intraperitoneal free air or abdominal ascites. There is a small fat-containing umbilical hernia. Lymphadenopathy: None. Pelvic viscera: The bladder is decompressed around a Watkins catheter. The bladder wall appears markedly thickened and there is pericystic inflammation. The endometrium appears significantly thickened for age measuring up to 1.7 cm. No adnexal lesion is identified. Skeletal structures: The skeletal structures are osteopenic. No lytic or blastic lesions are seen. There is mild lumbosacral spondylosis. There are superior endplate compression deformities of L3, L4, and L5. There is an acute to subacute right proximal femoral fracture with intertrochanteric and intramedul abebe nails in place. There is mild surrounding hemorrhage. No organized hematoma is identified. IMPRESSION: 1. There is segmental pulmonary embolus within a branch of the right upper lobe pulmonary artery. 2. Cardiomegaly and trace right pleural effusion. 3. Large hiatal hernia. 4. No airspace consolidation is identified typical for pneumonia. 5. There is a 7 mm obstructing calculus in the right proximal ureter located just below the ureteropelvic junction. This causes mild to moderate right hydronephrosis. 6. Urothelial thickening and enhancement in the right renal pelvis and proximal ureter is nonspecific and may be related to obstruction/hydronephrosis. Correlate clinically and with urinalysis for evidence of superimposed urinary tract infection. 7. The bladder is decompressed around a Watkins catheter. The bladder appears markedly thick walled with pericystic inflammation. The appearance suggests cystitis, and again this should be correlated with clinical findings and urinalysis. 8. 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 9. The endometrium appears markedly thickened for age measuring up to 1.7 cm. This is not well assessed by CT and nonemergent follow-up with gynecology and pelvic ultrasound is recommended for further assessment. 10. The adrenal glands appear hyperemic. This a nonspecific finding but can be seen with hypovolemia/hypotension. Clinical correlation will be required. 11. Colonic diverticulosis without CT evidence of acute diverticulitis. 12. There is an acute to subacute fracture of the right proximal femur with inte rtrochanteric and intramedullary nails in place. 13. There are numerous mild and age indeterminant thoracolumbar compression deformities. See above. 14. Additional findings as above. ACT 112: Positive. There are findings on this exam that require communication between the performing entity and the patient following Patient Test Result Information Act ([place] Act 112) guidelines. Electronically signed by: Wai Prather M.D. 03/23/2021 2:57 PM Chest X-Ray 03/23/21 16:28 SINGLE VIEW CHEST CLINICAL HISTORY: Central venous catheter placement. FINDINGS: An AP, portable, supine chest radiograph is compared to chest x-ray and chest CT performed earlier the same day dated 03/23/2021. A left internal jugular central venous catheter has been placed. The tip projects over the SVC. The heart is mildly enlarged noting atherosclerotic calcification of the thoracic aorta. The pulmonary vasculature is noncongested. A hiatal hernia is noted. Chronic interstitial thickening is similar to previous. No airspace consolidation or large pleural effusion is identified. No pneumothorax is seen. The skeletal structures are osteopenic. The bony thorax is grossly intact. 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 IMPRESSION: 1. A left internal jugular central venous catheter has been placed as above. No pneumothorax is seen post procedure. 2. Hiatal hernia. 3. No airspace consolidation or large pleural effusion is identified. ACT 112: Negative or not required by law. Electronically signed by: Wai Prather M.D. 03/23/2021 5:01 PM Discharge Plan Visit Data Chief Complaint: Weakness ED Provider: Salvador Cali Discharge Problem: Septic shock, Pulmonary embolism, Hydronephrosis due to obstruction of ureter, Ureterolithiasis, Elevated troponin Discharge Instructions Interventions: ED Discharge Assessment Last Done: 03/23/21 16:51
--- NOTE | 2021-03-23 17:35 | Anesthesiology Progress Note ---
Date of Service March 23, 2021 Anesthesia Post Procedure Vital Signs Vital Signs: Temp Pulse Pulse Resp BP BP Pulse Ox 03/23/21 16:40 85 30 H 90/63 L 95 03/23/21 16:27 84 30 H 93/74 L 99 03/23/21 16:04 83 30 H 97/55 L 99 03/23/21 15:57 82 28 H 96/64 L 100 03/23/21 15:45 82 30 H 91/56 L 95 03/23/21 15:35 81 30 H 89/74 L 96 03/23/21 15:29 80 30 H 88/57 L 95 03/23/21 15:24 79 30 H 87/59 L 93 03/23/21 15:19 78 24 83/58 L 95 03/23/21 15:12 76 24 76/56 L 94 03/23/21 15:06 77 30 H 81/51 L 95 03/23/21 14:45 78 36 H 72/46 L 96 03/23/21 13:55 97 03/23/21 13:39 97 03/23/21 13:22 94 03/23/21 13:18 98.2 F 85 18 72/43 L 91 Transfer of Care Handoff Completed per policy Notes Mental Status: alert / awake / arousable and participated in evaluation Patient Amnestic to Procedure: Yes Nausea / Vomiting: adequately controlled Pain: adequately controlled Airway Patency, RR, SpO2: stable & adequate BP & HR: stable & adequate Hydration State: stable & adequate Anesthetic Complications: no major complications apparent and Pt Satisfied with anesthetic care
[2021-03-23] MEDS ORDERED: ICU PROTOCOL FOR HYPERGLYCEMIA PRN (17:37)
[2021-03-23] MEDS ORDERED: HYDROCODONE/ACETAMOPHEN 5/325MG TAB PO PRN (17:37)
[2021-03-23 18:08] LABS: Hematocrit (blood only) 29.4 % (37-47); Hemoglobin 9.5 g/dL (12.0-16.0); Mean Corpuscular Volume 86.7 fL (80-100); Mean Platelet Volume 11.3 fL (7.4-10.4); Platelet Count 190 K/uL (130-400); RDW Standard Deviation 47.1 fL (36.4-46.3); Red Blood Count 3.39 M/uL (4.2-5.4); White Blood Count 15.65 K/uL (4.8-10.8)
[2021-03-23] MEDS: HEPARIN SODIUM/DEXTROSE 25,000 UNITS/500 ML BAG IV SCH (18:12)
[2021-03-23 18:13] LABS: Mean Corpuscular Hgb Conc 32.3 g/dL (32-36)
[2021-03-23] MEDS: Heparin IV Adult Wt-Based Low-Dose *NO* Bolus Protocol IV SCH ×2 (18:13→19:19)
[2021-03-23] MEDS: PIPERACILLIN/TAZOBACTAM 3.375 GM in DEXTROSE 5% 100 ML IV SCH (18:24)
[2021-03-23 18:27] LABS: Basophils # (auto) 0.01 K/uL (0-0.2); Basophils % (auto) 0.1 %; Dohle Bodies 1+; Echinocytes 1+; Immature Granulocytes # (auto) 0.36 K/uL (0.00-0.02); Immature Granulocytes % (auto) 2.3 %; Lymphocytes # (auto) 0.37 K/uL (1.2-3.4); Lymphocytes % (auto) 2.4 %; Monocytes % (auto) 1.9 %; Neutrophils # (auto) 14.61 K/uL (1.4-6.5); Neutrophils % (auto) 93.3 %; Toxic Vacuolation 2+
[2021-03-23 18:45] LABS: Albumin Globulin Ratio 0.7 (0.9-2); Albumin Level 2.1 gm/dl (3.4-5.0); BUN Creatinine Ratio 20.7 (10-20); Bilirubin,Total 1.4 mg/dl (0.2-1); Calcium 7.8 mg/dl (8.5-10.1); Creatinine Clr Calc Pharmacy 28.7 ml/min; Est GFR (African American) 33.9; Est GFR (Non-African American) 29.2; Potassium 3.6 mmol/L (3.5-5.1); Total Protein 5.1 gm/dl (6.4-8.2)
--- NOTE | 2021-03-23 18:59 | Fluoroscopy Report ---
INTRAOPERATIVE RADIOGRAPHS CLINICAL HISTORY: Right-sided ureteral stent placement. Fluoroscopy time: 48 seconds. FINDINGS: 3 spot fluoroscopic views of the right abdomen are correlated with abdominal CT dated . The initial image shows a catheter in the right proximal ureter. Injected contrast outlines hydr onephrosis. The final 2 images show the proximal and distal ends of a right ureteral stent in appropr iate position. IMPRESSION: Intraoperative images from a right ureteral stent placement procedure as above. Electronically signed by: Wai Prather M.D. 03/23/2021 6:58 PM
[2021-03-23 19:07] LABS: Creatinine Urine Random 20.1 mg/dl; Potassium Random Urine 17.1 mmol/L; Uric Acid Urine Random 13.2 mg/dl
[2021-03-23] MEDS: DOCUSATE SODIUM 100 MG CAP PO SCH (21:21)
[2021-03-23] MEDS: PARoxetine HCL 20 MG TAB PO SCH (21:21)
[2021-03-23] MEDS: FAMOTIDINE 20 MG in SYRINGE 3 ML IV SCH (21:21)
[2021-03-23] MEDS: SIMVASTATIN 20 MG TAB PO SCH (21:21)
--- NOTE | 2021-03-23 23:19 | Ultrasound Report ---
ULTRASOUND BILATERAL LOWER EXTREMITY VENOUS CLINICAL HISTORY: Pulmonary embolus. COMPARISON STUDY: No priors. TECHNIQUE: Real-time, grayscale, and color Doppler sonography of the deep veins of the right and left lower extremity was performed from the inguinal crease to the calf. Compression and augmentation wer e utilized. FINDINGS: There is no sonographic evidence of deep venous thrombosis identified in the right or left lower extremity. The common femoral, superficial femoral, and popliteal veins are patent and normally compressible bilaterally. The greater saphenous vein and the profunda femoris vein at the junction w ith the common femoral vein are clear in both legs. The visualized calf veins are patent bilaterally. IMPRESSION: There is no sonographic evidence of deep venous thrombosis identified in the right or lef t lower extremity. ACT 112: Negative or not required by law. Electronically signed by: Wai Prather M.D. 03/23/2021 11:17 PM
[2021-03-24] MEDS: NOREPINEPHRINE/D5W 8 MG/508 ML BAG IV SCH ×2 (02:07→14:40)
[2021-03-24] MEDS: PIPERACILLIN/TAZOBACTAM 3.375 GM in DEXTROSE 5% 100 ML IV SCH ×2 (03:04→10:55)
[2021-03-24 04:59] LABS: BUN Creatinine Ratio 25.3 (10-20); Calcium 8.2 mg/dl (8.5-10.1); Creatinine Clr Calc Pharmacy 37.8 ml/min; Est GFR (African American) 47.3; Est GFR (Non-African American) 40.8; Magnesium 2.2 mg/dl (1.8-2.4); Potassium 3.7 mmol/L (3.5-5.1)
[2021-03-24 05:02] LABS: INR 1.4 (0.9-1.1); Partial Thromboplastin Ratio 1.9; Prothrombin Time 14.1 Seconds (9.0-12.0)
[2021-03-24 05:08] LABS: Partial Thromboplastin Time 50.4 Seconds (21.0-31.0)
[2021-03-24 05:11] LABS: Hematocrit (blood only) 29.2 % (37-47); Hemoglobin 9.5 g/dL (12.0-16.0); Mean Corpuscular Hemoglobin 28.4 pg (25-34); Mean Corpuscular Hgb Conc 32.5 g/dL (32-36); Mean Corpuscular Volume 87.4 fL (80-100); Platelet Count 191 K/uL (130-400); RDW Standard Deviation 47.9 fL (36.4-46.3); Red Blood Count 3.34 M/uL (4.2-5.4); White Blood Count 32.95 K/uL (4.8-10.8)
[2021-03-24 05:12] LABS: Basophils # (auto) 0.02 K/uL (0-0.2); Basophils % (auto) 0.1 %; Dohle Bodies 1+; Eosinophils # (auto) 0.02 K/uL (0-0.5); Eosinophils % (auto) 0.1 %; Immature Granulocytes # (auto) 1.83 K/uL (0.00-0.02); Immature Granulocytes % (auto) 5.6 %; Lymphocytes # (auto) 0.92 K/uL (1.2-3.4); Lymphocytes % (auto) 2.8 %; Monocytes # (auto) 1.62 K/uL (0.11-0.59); Monocytes % (auto) 4.9 %; Neutrophils # (auto) 28.54 K/uL (1.4-6.5); Neutrophils % (auto) 86.5 %; Toxic Vacuolation 1+
--- NOTE | 2021-03-24 07:15 | Intensivist Progress Note ---
Date of Service March 24, 2021 Assessment & Plan Admission and Anticipated Discharge Date Admission Date: March 23, 2021 Results & Data Results & Data ([facility]) Vital Signs (Past 12 Hours) Vital Signs Temp Pulse Resp BP Pulse Ox 03/24/21 04:50 86 29 H 121/69 91 03/24/21 04:09 36.8 C 85 31 H 122/75 91 03/24/21 03:39 85 36 H 118/79 92 03/24/21 03:09 81 30 H 115/62 93 03/24/21 02:39 80 29 H 116/61 91 03/24/21 02:09 80 28 H 97/57 L 90 03/24/21 01:39 80 28 H 110/66 91 03/24/21 01:09 83 26 H 116/65 93 03/24/21 00:39 80 23 106/58 L 91 03/24/21 00:09 36.8 C 81 29 H 104/67 93 03/24/21 00:00 79 03/23/21 23:39 79 28 H 99/61 L 93 03/23/21 23:09 79 29 H 96/59 L 93 03/23/21 22:39 81 29 H 100/59 L 94 03/23/21 22:09 79 31 H 89/63 L 93 03/23/21 21:36 82 26 H 103/68 94 03/23/21 21:31 83 25 H 114/76 94 03/23/21 21:27 81 35 H 112/65 93 03/23/21 21:21 77 25 H 87/58 L 93 03/23/21 21:16 77 27 H 92/56 L 93 03/23/21 21:11 77 27 H 89/59 L 93 03/23/21 21:06 76 26 H 91/55 L 93 03/23/21 21:01 76 27 H 88/55 L 93 03/23/21 20:56 77 27 H 94/54 L 94 03/23/21 20:51 77 26 H 91/57 L 94 03/23/21 20:46 78 29 H 96/59 L 94 03/23/21 20:41 77 25 H 94/58 L 93 03/23/21 20:36 80 26 H 103/59 L 92 03/23/21 20:31 79 35 H 92/60 L 94 03/23/21 20:26 76 26 H 86/59 L 93 03/23/21 20:21 77 25 H 92/59 L 92 03/23/21 20:16 79 33 H 98/63 L 93 03/23/21 20:11 77 28 H 92/58 L 93 03/23/21 20:06 76 23 87/55 L 93 03/23/21 20:01 36.8 C 76 24 85/54 L 93 03/23/21 19:56 76 25 H 88/53 L 93 03/23/21 19:50 75 23 81/56 L 93 03/23/21 19:46 76 23 86/51 L 93 03/23/21 19:41 76 23 90/53 L 93 03/23/21 19:35 76 25 H 88/54 L 92 03/23/21 19:30 76 25 H 86/58 L 92 03/23/21 19:25 77 27 H 83/56 L 91
[2021-03-24] MEDS ORDERED: ACETAMINOPHEN 325 MG TAB PO ONE (10:24)
--- NOTE | 2021-03-24 10:49 | Urology Progress Note ---
Date of Service March 24, 2021 Assessment & Plan (1) Septic shock: (2) Hydronephrosis due to obstruction of ureter: (3) S/P ureteral stent placement: 80 year old female with multiple comorbidities POD #1 s/p emergent cystoscopy and right ureteral stent secondary to septic shock, ureterolithiasis; bilateral pulmonary emboli. - Afebrile, lab work reviewed - creatinine improved to 1.26, WBC increased to 32.95 - Patient subjectively feeling better today - Urine culture growing E. coli, BCx prelim gram negative bacilli - continue IV abx per primary team and follow cultures - Continue supportive care and management per primary service - Recommend maintain Watkins catheter for a few days - Can do passive voiding trial when clinically stable/prior to discharge - Expected clinical course reviewed, all questions answered - Will arrange outpatient follow-up with our service to discuss definitive stone management Thank you for allowing us to participate in the acute care of Ms. Peñaloza. Please reconsult us with additional questions, concerns or changes in patient status. Admission and Anticipated Discharge Date Admission Date: March 23, 2021 Subjective 80 year old female POD #1 s/p emergent cystoscopy and right ureteral stent secondary to septic shock, ureterolithiasis. Patient seen and examined at bedside this AM She is awake and sitting up in bed She denies suprapubic or abdominal pain, mild right flank discomfort Watkins intact, patent and draining yellow urine with sediment noted in tubing Tolerated PO diet this AM, though notes low appetite No nausea or vomiting No fever or chills Denies CP or SOB She is on Heparin gtt for bilateral PE. Levophed off at time of exam, BPs 110s- 120s. She denies prior stone history. Chart review: Afebrile Creatinine 1.26 WBC 32.95 Hgb 9.5 UC&S 03/23 prelim growing E. coli BCx / prelim gram negative bacilli Urine kidney aspirate 03/23 prelim gram negative bacilli On IV Zosyn No additional concerns today. Review of Systems Constitutional: as per Subjective / HPI Respiratory: as per Subjective / HPI Cardiovascular: as per Subjective / HPI Gastrointestinal: as per Subjective / HPI Genitourinary: as per Subjective / HPI Physical Exam Constitutional: well developed and well nourished; no acute distress and not ill appearing Respiratory: + tachypneic (mild); no respiratory distress and no labored breathing O2 via nasal cannula Cardiovascular: Extremities: no pedal edema Gastrointestinal (Abdomen): Inspection/Auscultation: abdomen normal to inspection; abdomen not distended Percussion/Palpation: abdomen soft; abdomen nontender and no guarding Musculoskeletal: Head/Neck/Chest: normocephalic and head atraumatic Neurologic: moves all extremities and awake Psychiatric: Orientation: alert and oriented x 3 Genitourinary: no CVA tenderness Results & Data ([facility]) Vital Signs (Past 12 Hours) Vital Signs Temp Pulse Resp BP Pulse Ox 03/24/21 08:00 86 03/24/21 04:50 86 29 H 121/69 91 03/24/21 04:09 36.8 C 85 31 H 122/75 91 03/24/21 03:39 85 36 H 118/79 92 03/24/21 03:09 81 30 H 115/62 93 03/24/21 02:39 80 29 H 116/61 91 03/24/21 02:09 80 28 H 97/57 L 90 03/24/21 01:39 80 28 H 110/66 91 03/24/21 01:09 83 26 H 116/65 93 03/24/21 00:39 80 23 106/58 L 91 03/24/21 00:09 36.8 C 81 29 H 104/67 93 03/24/21 00:00 79 03/23/21 23:39 79 28 H 99/61 L 93 03/23/21 23:09 79 29 H 96/59 L 93 PG Care Time/CCT Total # of Minutes Spent Total Time Spent with Patient: Total time spent is greater than 50% in coordination of care (as documented) at patient's floor/unit and/or counseling patient: Coding Level of Care Code 73073 Subseq Hosp Care Lvl 2 Diagnoses Septic shock A41.9; R65.21 Hydronephrosis due to obstruction of ureter N13.1 S/P ureteral stent placement Z96.0
[2021-03-24] MEDS: DOCUSATE SODIUM 100 MG CAP PO SCH ×2 (10:55→21:10)
[2021-03-24] MEDS: FAMOTIDINE 20 MG in SYRINGE 3 ML IV SCH ×2 (10:55→21:14)
--- NOTE | 2021-03-24 11:08 | Critical Care Progress Note ---
Date of Service March 24, 2021 Assessment & Plan (1) Septic shock: Reason critically ill: 80-year-old female past medical history of hypertension, dyslipidemia, recent right hip fracture status post ORIF 02/15/21 present to the hospital with septic shock likely from right-sided kidney stone. EKG 03/23/2021: Normal sinus rhythm, normal axis, no ST-T wave changes appreciated, QTC 493 CT chest 03/23/2021 personally reviewed: Minimal atelectasis bilateral lower lobes. Segmental PE right upper lobe Moderate hiatal hernia appreciated -- Septic shock With gram-negative bacteremia, source is likely urinary Continue broad-spectrum antibiotics Culture growing E. coli. Follow-up sensitivity Procalcitonin greater than 200 COVID-19 PCR negative, influenza A/B negative Random cortisol 70 --Right-sided hydronephrosis with nephrolithiasis 7 mm obstructing stone S/p OR by urology on 03/23/2021 -- LIANG Improving Monitor BUN/creatinine Avoid nephrotoxic medications Strict ins and outs -- Acute segmental PE Likely provoked given the recent right hip surgery for a intertrochanteric fracture No right heart strain appreciated on the CT Patient's hypotension is likely coming from sepsis given the elevated procalcitonin and WBC count No TPA indication currently Doppler bilateral lower extremity negative -- HAGMA Delta-delta: 1.1, Pure anion gap Likely sec to lactic acidosis Lactic acidosis trending down Monitor -- Elevated troponin Likely secondary type II SD EKG shows no changes Monitor --History of hypertension Hold blood pressure medications -- Prophylaxis VTE: Heparin drip GI: Pepcid Lines: Left IJ Diet: N.p.o. Plan: In/out: +5.7 L, urine output 1251 Continue with Zosyn till we have the sensitivities back for the E. coli. WBC count went up today likely reactive from the OR yesterday Try to titrate off Levophed. Start feeding today cardiorenal diet. If the patient complains of shortness of breath or patient is requiring more oxygen we will give a dose of Lasix. I have personally spent 35 minutes of critical care time in the direct m anagement of this patient. This is a life/limb threatening event. This includes time spent evaluating patient, direct bedside care, chart review, placing orders, interpretation of diagnostic studies, discussion with consultants, patient, and family members, as well as other required patient management activities. This time is exclusive of all separately billable procedures, and teaching time and separate from and in addition to any other critical care service time. Please note the above document was generated using voice recognition software. It may contain grammatical, syntax or spelling errors. (2) Kidney stone: (3) Depression: (4) Hypertension: (5) Pulmonary embolism: (6) LIANG (acute kidney injury): Admission and Anticipated Discharge Date Admission Date: March 23, 2021 Subjective Patient seen and examined at bedside. No acute distress, no adverse events overnight. Denies any chest pain, no shortness of breath Complains of mild abdominal pain. No nausea or vomiting. Was on Levophed 0.05 the time of examination with map in the 70s. No headache, no dizziness. Review of Systems Review of Systems: All systems reviewed & are unremarkable except as noted in Subjective Physical Exam Physical Exam: Constitutional: No acute distress HEENT: EOMI, PERRLA Respiratory system: Decreased air entry bilaterally, no wheeze, no rhonchi, positive crackles bilateral lower lobes CVS: S1-S2 positive, no murmurs or gallops Abdomen: Soft, tenderness in the right flank and right quadrant, no rebound, positive bowel sounds Extremities: +2 pulses bilaterally radialis/ dorsalis pedis, no cyanosis, no edema Neuro: Awake alert oriented x3 Psych: Normal mood and affect G/U: Positive rodarte Skin: no rashes, warm and dry Lymphatic: no cervical or axillary lymphadenopathy Results & Data Results & Data ([facility]) Vital Signs (Past 12 Hours) Vital Signs Temp Pulse Resp BP Pulse Ox 03/24/21 08:00 86 03/24/21 04:50 86 29 H 121/69 91 03/24/21 04:09 36.8 C 85 31 H 122/75 91 03/24/21 03:39 85 36 H 118/79 92 03/24/21 03:09 81 30 H 115/62 93 03/24/21 02:39 80 29 H 116/61 91 03/24/21 02:09 80 28 H 97/57 L 90 03/24/21 01:39 80 28 H 110/66 91 03/24/21 01:09 83 26 H 116/65 93 03/24/21 00:39 80 23 106/58 L 91 03/24/21 00:09 36.8 C 81 29 H 104/67 93 03/24/21 00:00 79 03/23/21 23:39 79 28 H 99/61 L 93 03/23/21 23:09 79 29 H 96/59 L 93 03/24/21 04:28 03/24/21 04:28 Coding Level of Care Code Critical Care 1st 30-74 mins Diagnoses Septic shock A41.9; R65.21 Kidney stone N20.0 Depression F32.9 Hypertension I10 Hypertension type: essential hypertension Pulmonary embolism I26.99 LIANG (acute kidney injury) N17.9 Time Spent (min) 35 (1) Hypertension Hypertension type: essential hypertension Qualified Code(s): I10 - Essential (primary) hypertension
[2021-03-24] MEDS: INSULIN ASPART 100 UNITS/ML 3 ML PEN SC SCH ×3 (12:00→21:11)
[2021-03-24] MEDS ORDERED: PIPERACILLIN/TAZOBACTAM 4.5 GM in DEXTROSE 5% 100 ML IV SCH (12:30)
[2021-03-24] MEDS: PIPERACILLIN/TAZOBACTAM 4.5 GM in DEXTROSE 5% 100 ML IV SCH (16:50)
--- NOTE | 2021-03-24 18:01 | XRay Report ---
XR chest 1V portable CLINICAL HISTORY: HYPOXIA COMPARISON STUDY: Chest CT and chest radiograph March 23, 2021. FINDINGS: There is no pneumothorax. A left internal jugular central line is in place. Cardiomegaly is noted as well as a hiatal hernia. There has been interval development of moderate pulmonary edema wi th bilateral pleural effusions. IMPRESSION: Interval development of moderate pleural edema with bilateral pleural effusions. ACT 112: Negative or not required by law. Electronically signed by: Blair Trevino M.D. 03/24/2021 5:59 PM
[2021-03-24] MEDS: SIMVASTATIN 20 MG TAB PO SCH (21:11)
[2021-03-24] MEDS: PARoxetine HCL 20 MG TAB PO SCH (21:11)
--- NOTE | 2021-03-24 22:12 | Hospitalist Progress Note ---
Date of Service March 24, 2021 Assessment & Plan (1) Septic shock: Admitted to the ICU Required Broad-spectrum antibiotics per critical care service Was on Levophed: now discontinued (2) Kidney stone: Urology aware, plan for OR this afternoon With hypotension, patient represents some surgical risk but benefits outweigh risks at this point Postop orders per urology (3) LIANG (acute kidney injury): Likely secondary to renal stone, hypotension, and sepsis Hydrate per sepsis protocol Continue to monitor (4) Pulmonary embolism: Most likely incidental Continue Heparin drip 2D echo when able (5) Hypertension: Hold hypertensive medications for now as patient is hypotensive and septic (6) Hyperlipidemia: Okay to hold medications for now as well (7) Intertrochanteric fracture of right hip: Patient is apparently independent at home prior to admission, will require PT/OT when viable Admission and Anticipated Discharge Date Admission Date: March 23, 2021 Subjective Patient reports feeling much better, She has no new complaints at this time. Review of Systems Review of Systems: All systems reviewed & are unremarkable except as noted in HPI & below Physical Exam Physical Exam: Constitutional: well developed and + ill appearing; no acute distress Neck: Thyroid: normal thyroid Respiratory: normal respiratory effort, lungs: MILD WHEEZING to auscultation Cardiovascular: RRR, no murmur, no edema Heart Sounds: normal S1 and normal S2 Gastrointestinal (Abdomen): Inspection/Auscultation: abdomen normal to inspection Percussion/Palpation: abdomen nontender, no guarding and + abdomen not soft Skin: no rashes, warm and dry Results & Data Results & Data ([facility]) Vital Signs (Past 12 Hours) Vital Signs Temp Pulse Resp BP Pulse Ox 03/24/21 22:00 89 30 H 95 03/24/21 21:50 89 29 H 95 03/24/21 21:40 91 H 33 H 126/69 95 03/24/21 21:30 90 33 H 96 03/24/21 21:20 94 H 32 H 94 03/24/21 21:18 97 H 36 H 153/83 H 94 03/24/21 21:10 94 H 33 H 141/104 H 96 03/24/21 21:00 92 H 33 H 98 03/24/21 20:50 93 H 27 H 95 03/24/21 20:40 92 H 34 H 135/74 96 03/24/21 20:30 38.1 C H 96 H 31 H 99 03/24/21 20:20 98 H 40 H 94 03/24/21 20:10 90 31 H 139/79 95 03/24/21 20:00 90 32 H 96 03/24/21 19:50 91 H 33 H 96 03/24/21 19:40 91 H 33 H 133/79 98 03/24/21 19:30 91 H 31 H 98 03/24/21 19:20 90 34 H 97 03/24/21 19:10 95 H 28 H 142/80 H 95 03/24/21 19:00 93 H 32 H 96 03/24/21 16:10 79 26 H 116/74 93 03/24/21 16:00 36.8 C 80 34 H 93 03/24/21 15:40 74 25 H 101/56 L 94 03/24/21 15:10 75 28 H 102/59 L 93 03/24/21 15:00 77 28 H 93 03/24/21 14:40 78 26 H 103/60 93 03/24/21 14:10 82 24 109/65 93 03/24/21 14:00 80 26 H 93 03/24/21 13:40 79 27 H 124/63 92 03/24/21 13:30 77 25 H 93 03/24/21 13:20 76 25 H 92 03/24/21 13:11 76 24 92 03/24/21 13:10 76 24 98/58 L 93 03/24/21 13:00 36.5 C 77 27 H 93 03/24/21 12:50 78 26 H 92 03/24/21 12:41 81 28 H 93 03/24/21 12:40 82 24 104/58 L 93 03/24/21 12:30 86 31 H 92 03/24/21 12:20 85 19 92 03/24/21 12:11 84 33 H 92 03/24/21 12:10 85 33 H 107/65 92 03/24/21 12:00 86 23 92 03/24/21 11:50 87 30 H 91 03/24/21 11:41 89 32 H 91 03/24/21 11:39 88 22 123/72 90 03/24/21 11:30 90 20 90 03/24/21 11:20 88 31 H 92 05/10/21 11:11 88 31 H 91 03/24/21 11:10 85 26 H 123/89 91 03/24/21 11:00 86 32 H 91 03/24/21 10:50 91 H 33 H 92 03/24/21 10:40 101 H 25 H 88 L 03/24/21 10:30 85 31 H 91 03/24/21 10:20 85 30 H 91 PG Care Time/CCT Total # of Minutes Spent Total Time Spent with Patient: Total time spent is greater than 50% in coordination of care (as documented) at patient's floor/unit and/or counseling patient: Coding Level of Care Code 72190 Subseq Hosp Care Lvl 3 Diagnoses Septic shock A41.9; R65.21 Kidney stone N20.0 LIANG (acute kidney injury) N17.9 Pulmonary embolism I26.99 Hypertension I10 Hypertension type: essential hypertension Hyperlipidemia E78.5 Intertrochanteric fracture of right hip S72.144A Encounter type: initial encounter Fracture alignment: nondisplaced Fracture type: closed Time Spent (min) 35 (1) Hypertension Hypertension type: essential hypertension Qualified Code(s): I10 - Essential (primary) hypertension (2) Intertrochanteric fracture of right hip Encounter type: initial encounter Fracture alignment: nondisplaced Fracture type: closed Qualified Code(s): S72.144A - Nondisplaced intertrochanteric fracture of right femur, initial encounter for closed fracture
--- NOTE | 2021-03-24 22:51 | Electrocardiogram Report ---
Test Reason : Blood Pressure : / mmHG Vent. Rate : 083 BPM Atrial Rate : 083 BPM P-R Int : 122 ms QRS Dur : 074 ms QT Int : 420 ms P-R-T Axes : 047 049 052 degrees QTc Int : 493 ms Normal sinus rhythm Prolonged QT Abnormal ECG When compared with ECG of 14-FEB-2021 21:29, T wave amplitude has increased in Anterolateral leads Confirmed by Uriel Soares ([id number]) on 03/24/2021 10:51:13 PM Referred By: REFERRED SELF Confirmed By:Uriel Soares
[2021-03-25] MEDS: HEPARIN SODIUM/DEXTROSE 25,000 UNITS/500 ML BAG IV SCH ×2 (00:26→19:13)
[2021-03-25] MEDS: PIPERACILLIN/TAZOBACTAM 4.5 GM in DEXTROSE 5% 100 ML IV SCH ×2 (01:46→09:57)
[2021-03-25 05:41] LABS: INR 1.1 (0.9-1.1); Partial Thromboplastin Ratio 1.3; Partial Thromboplastin Time 35.3 Seconds (21.0-31.0); Prothrombin Time 11.2 Seconds (9.0-12.0)
[2021-03-25 05:55] LABS: BUN Creatinine Ratio 30.6 (10-20); Calcium 8.1 mg/dl (8.5-10.1); Creatinine Clr Calc Pharmacy 49.1 ml/min; Est GFR (African American) 65.7; Est GFR (Non-African American) 56.6; Magnesium 2.2 mg/dl (1.8-2.4); Potassium 3.2 mmol/L (3.5-5.1)
[2021-03-25 06:13] LABS: Hematocrit (blood only) 29.3 % (37-47); Hemoglobin 9.8 g/dL (12.0-16.0); Mean Corpuscular Hemoglobin 28.6 pg (25-34); Mean Corpuscular Hgb Conc 33.4 g/dL (32-36); Mean Corpuscular Volume 85.4 fL (80-100); Mean Platelet Volume 12.5 fL (7.4-10.4); Platelet Count 168 K/uL (130-400); RDW Coefficient of Variation 15.1 % (11.5-14.5); RDW Standard Deviation 47.3 fL (36.4-46.3); Red Blood Count 3.43 M/uL (4.2-5.4); White Blood Count 21.75 K/uL (4.8-10.8)
[2021-03-25] MEDS ORDERED: HEPARIN SOD (PORCINE) 1000 UNIT/ML IV ONE ×2 (06:30→21:15)
[2021-03-25 07:04] LABS: Basophils # (auto) 0.01 K/uL (0-0.2); Eosinophils # (auto) 0.07 K/uL (0-0.5); Eosinophils % (auto) 0.3 %; Immature Granulocytes # (auto) 0.15 K/uL (0.00-0.02); Immature Granulocytes % (auto) 0.7 %; Lymphocytes # (auto) 0.77 K/uL (1.2-3.4); Lymphocytes % (auto) 3.5 %; Monocytes % (auto) 3.7 %; Neutrophils # (auto) 19.95 K/uL (1.4-6.5); Neutrophils % (auto) 91.8 %
[2021-03-25] MEDS: DOCUSATE SODIUM 100 MG CAP PO SCH ×2 (08:00→20:58)
[2021-03-25] MEDS: INSULIN ASPART 100 UNITS/ML 3 ML PEN SC SCH ×4 (08:03→20:58)
[2021-03-25] MEDS: FAMOTIDINE 20 MG in SYRINGE 3 ML IV SCH ×2 (09:56→21:21)
[2021-03-25] MEDS ORDERED: POLYETHYLENE (MIRALAX) 17 GM PACK PO PRN (11:57)
[2021-03-25] MEDS ORDERED: POLYETHYLENE (MIRALAX) 17 GM PACK PO ONE (11:58)
[2021-03-25 13:07] LABS: Partial Thromboplastin Ratio 1.3; Partial Thromboplastin Time 34.4 Seconds (21.0-31.0)
--- NOTE | 2021-03-25 13:24 | XRay Report ---
XR chest 1V portable CLINICAL HISTORY: tachypnea COMPARISON STUDY: 03/24/2021 FINDINGS: The heart is enlarged. There is diffuse elevation of interstitium likely secondary to conge stive failure and pulmonary edema. There are small bilateral pleural effusions. There are basilar opa cities likely representing compressive atelectasis. There is no change in the position of the left in ternal jugular central venous catheter.[ IMPRESSION: Continued radiographic evidence of cardiomegaly, congestive failure, pulmonary edema, and bilateral pleural effusions. ACT 112: Negative or not required by law. Electronically signed by: Frank Hager M.D. 03/25/2021 1:23 PM
[2021-03-25] MEDS: POTASSIUM CHLORIDE CRTAB 20 MEQ TABCR PO SCH ×2 (14:19→21:22)
[2021-03-25] MEDS: ceFAZolin 2000MG 2,000 MG/15 ML SYR IV SCH (17:21)
[2021-03-25 20:10] LABS: Partial Thromboplastin Ratio 1.3; Partial Thromboplastin Time 33.3 Seconds (21.0-31.0)
[2021-03-25] MEDS: PARoxetine HCL 20 MG TAB PO SCH (21:06)
[2021-03-25] MEDS: SIMVASTATIN 20 MG TAB PO SCH (21:06)
--- NOTE | 2021-03-25 22:50 | Hospitalist Progress Note ---
Date of Service March 25, 2021 Assessment & Plan (1) Septic shock: Admitted to the ICU Required Broad-spectrum antibiotics per critical care service Antibiotics switched to cefazolin as cultures show pansensitive E. COLI Was on Levophed: now discontinued Now transferred out of ICU will monitor BP and slowly resume meds (2) Kidney stone: Urology aware, plan for OR this afternoon With hypotension, patient represents some surgical risk but benefits outweigh risks at this point Postop orders per urology (3) LIANG (acute kidney injury): Likely secondary to renal stone, hypotension, and sepsis Hydrate per sepsis protocol Resolved Continue to monitor (4) Pulmonary embolism: Most likely incidental Continue Heparin drip 2D echo when able (5) Hypertension: holding (6) Hyperlipidemia: resume at HS (7) Intertrochanteric fracture of right hip: Patient is apparently independent at home prior to admission, will require PT/OT when viable Admission and Anticipated Discharge Date Admission Date: March 23, 2021 Subjective Patient reports feeling better. She has no new complaints. Review of Systems Review of Systems: All systems reviewed & are unremarkable except as noted in HPI & below Physical Exam Physical Exam: Constitutional: well developed and + ill appearing; no acute distress Neck: Thyroid: normal thyroid Respiratory: normal respiratory effort, lungs: MILD WHEEZING to auscultation Cardiovascular: RRR, no murmur, no edema Heart Sounds: normal S1 and normal S2 Gastrointestinal (Abdomen): Inspection/Auscultation: abdomen normal to insp ection Percussion/Palpation: abdomen nontender, no guarding and + abdomen not soft Skin: no rashes, warm and dry Results & Data Results & Data ([facility]) Vital Signs (Past 12 Hours) Vital Signs Temp Pulse Pulse Resp BP Pulse Ox 03/25/21 19:30 36.8 C 89 20 128/78 97 03/25/21 16:14 84 03/25/21 14:54 37.0 C 83 20 135/70 97 03/25/21 14:31 91 H PG Care Time/CCT Total # of Minutes Spent Total Time Spent with Patient: Total time spent is greater than 50% in coordination of care (as documented) at patient's floor/unit and/or counseling patient: Coding Level of Care Code 96138 Subseq Hosp Care Lvl 3 Diagnoses Septic shock A41.9; R65.21 Kidney stone N20.0 LIANG (acute kidney injury) N17.9 Pulmonary embolism I26.99 Hypertension I10 Hypertension type: essential hypertension Hyperlipidemia E78.5 Intertrochanteric fracture of right hip S72.144A Encounter type: initial encounter Fracture alignment: nondisplaced Fracture type: closed Time Spent (min) 35 (1) Hypertension Hypertension type: essential hypertension Qualified Code(s): I10 - Essential (primary) hypertension (2) Intertrochanteric fracture of right hip Encounter type: initial encounter Fracture alignment: nondisplaced Fracture type: closed Qualified Code(s): S72.144A - Nondisplaced intertrochanteric fracture of right femur, initial encounter for closed fracture
[2021-03-26] MEDS: HEPARIN SODIUM/DEXTROSE 25,000 UNITS/500 ML BAG IV SCH (01:24)
[2021-03-26] MEDS: ceFAZolin 2000MG 2,000 MG/15 ML SYR IV SCH ×3 (02:18→19:03)
[2021-03-26 03:38] LABS: Basophils # (auto) 0.02 K/uL (0-0.2); Basophils % (auto) 0.1 %; Eosinophils # (auto) 0.16 K/uL (0-0.5); Eosinophils % (auto) 1.1 %; Hematocrit (blood only) 26.8 % (37-47); Hemoglobin 9.1 g/dL (12.0-16.0); Immature Granulocytes # (auto) 0.06 K/uL (0.00-0.02); Immature Granulocytes % (auto) 0.4 %; Lymphocytes # (auto) 0.99 K/uL (1.2-3.4); Lymphocytes % (auto) 6.9 %; Mean Corpuscular Hemoglobin 28.2 pg (25-34); Mean Platelet Volume 11.4 fL (7.4-10.4); Monocytes # (auto) 0.82 K/uL (0.11-0.59); Monocytes % (auto) 5.7 %; Neutrophils # (auto) 12.35 K/uL (1.4-6.5); Neutrophils % (auto) 85.8 %; Platelet Count 141 K/uL (130-400); RDW Coefficient of Variation 14.8 % (11.5-14.5); RDW Standard Deviation 45.5 fL (36.4-46.3); Red Blood Count 3.23 M/uL (4.2-5.4)
[2021-03-26 04:01] LABS: BUN Creatinine Ratio 27.8 (10-20); Calcium 7.9 mg/dl (8.5-10.1); Creatinine Clr Calc Pharmacy 56.8 ml/min; Est GFR (African American) 78.3; Est GFR (Non-African American) 67.5; Magnesium 1.8 mg/dl (1.8-2.4); Potassium 3.3 mmol/L (3.5-5.1)
[2021-03-26 04:02] LABS: Phosphorus 1.6 mg/dl (2.5-4.9)
[2021-03-26 04:06] LABS: INR 1.1 (0.9-1.1); Partial Thromboplastin Ratio 1.5; Partial Thromboplastin Time 38.5 Seconds (21.0-31.0); Prothrombin Time 11.2 Seconds (9.0-12.0)
[2021-03-26] MEDS ORDERED: MAGNESIUM SULFATE / D5W 1 GM/100 ML BAG IV ONE (08:23)
[2021-03-26] MEDS ORDERED: POTASSIUM PHOS 3 MMOL/1 ML INFUSION IV STA (08:23)
[2021-03-26] MEDS ORDERED: POTASSIUM PHOSPHATE 15 MMOL in SODIUM CHLORIDE 0.9% 250 ML IV ONE (08:30)
[2021-03-26] MEDS ORDERED: FUROSEMIDE 20 MG in SYRINGE 0 ML IV ONE ×2 (08:45→17:45)
[2021-03-26] MEDS: INSULIN ASPART 100 UNITS/ML 3 ML PEN SC SCH ×4 (08:58→21:25)
[2021-03-26 09:36] LABS: Partial Thromboplastin Ratio 1.3; Partial Thromboplastin Time 33.7 Seconds (21.0-31.0)
[2021-03-26] MEDS ORDERED: Nursing to Pharmacy Communication SCH (10:00)
[2021-03-26] MEDS ORDERED: HEPARIN SOD (PORCINE) 1000 UNIT/ML IV ONE (10:00)
[2021-03-26] MEDS: FAMOTIDINE 20 MG in SYRINGE 3 ML IV SCH (10:30)
[2021-03-26] MEDS: DOCUSATE SODIUM 100 MG CAP PO SCH ×2 (10:40→20:16)
[2021-03-26] MEDS: POTASSIUM CHLORIDE CRTAB 20 MEQ TABCR PO SCH (10:40)
--- NOTE | 2021-03-26 16:01 | XCELERA ---
[id number]_[id number]
--- NOTE | 2021-03-26 17:29 | Hospitalist Progress Note ---
Date of Service March 26, 2021 Assessment & Plan (1) Septic shock: Presented with septic shock secondary to E. coli UTI, ureterolithiasis, and E. coli septicemia Admitted to the ICU initially and was on Levophed-has since been weaned off and blood pressures are much improved Required Broad-spectrum antibiotics per critical care service Antibiotics switched to cefazolin as both blood and urine cultures show pansensitive E. COLI Has since been transferred out of ICU -Resolved (2) Septicemia due to E. coli: As above Pansensitive Continue IV cefazolin for now and can transition to p.o. antibiotics upon discharge to complete a total of 2 weeks-would prefer to keep on antibiotics until after stent removal (3) Kidney stone: CT abdomen/pelvis upon admission showed 7 mm right proximal ureteral obstructing calculus with mild to moderate right hydronephrosis Presented with septic shock as above and acute kidney injury now status post urgent right ureteral stent placement on 03/[address] Tavarez -Urology recommends maintaining Watkins catheter for several days and can do passive voiding trial prior to discharge-we will maintain Watkins for today as she is being diuresed with IV Lasix as above -Urology to arrange outpatient follow-up for stone management and stent removal (4) LIANG (acute kidney injury): Likely secondary to renal stone, hypotension, and sepsis Now resolved Creatinine 2.09 on admission and now down to 0.83 after IV fluids, ureteral stent placement, and blood pressure support Continue to hold home lisinopril -Diuresing with IV Lasix (5) Pulmonary embolism: Found on CT angiogram of the chest performed upon admission-is segmental in the branch of the right upper lobe pulmonary artery Most likely secondary to recent hip fracture surgery and hospitalization despite using daily Lovenox injections through 03/18 as per daughter No previous history of DVT/PE Venous Dopplers here negative for bilateral DVT -Recommend 3 months of anticoagulation-convert heparin drip to Eliquis today- discussed with Dr. Munguia-since she has been therapeutic on heparin for 3 days, will only do 3 days of Eliquis 10 mg p.o. twice daily followed by 5 mg p.o. twice daily Bleeding risk is low and she has been tolerating heparin drip without difficulty Echocardiogram with mildly elevated right-sided pressures Her hypotension upon admission was not related to the small PE (6) Hypertension: Hypotensive on admission, now blood pressures are normal Continue to hold home lisinopril while diuresing, acute kidney injury has resolved -Holding home atenolol and amlodipine but can restart these over the next day or so (7) Hyperlipidemia: Continue simvastatin (8) Intertrochanteric fracture of right hip: Suffered a right hip fracture in 02/2021 and was rehabbing with home physical therapy PT/OT consults placed-recommend SNF but patient refuses this (9) Hypokalemia: Continue to replace with IV potassium phosphorus and p.o. potassium chloride especially now that giving IV Lasix Follow BMP magnesium in the morning (10) Hypophosphatemia: Replace with IV potassium phosphorus Follow level in the morning (11) Acute respiratory failure with hypoxia: Requiring 4 L nasal cannula Chest x-ray with bilateral pleural effusions and volume overload secondary to r esuscitation with volume during septic shock Renal failure is resolved Treated with IV Lasix 20 mg this morning and again we will give another dose this evening Follow BMP in the morning Wean off oxygen as able to (12) Volume overload: As above and hypoxia Diuresing Echocardiogram with preserved EF (13) Elevated troponin: Troponin elevated upon admission at 0.170, thought to be myocardial demand ischemia in the setting of septic shock versus secondary to pulmonary embolism Echocardiogram here with no wall motion abnormalities, preserved EF Patient denies chest pain ECG on admission without ischemic changes (14) Depression: Stable, continue home Paxil (15) Anemia: Hemoglobin low but stable at 9.1, recent hip surgery Follow CBC in the morning No bleeding from anywhere Check iron studies in the morning (16) S/P ureteral stent placement: As above (17) Constipation: No bowel movement since admission Continue docusate 100 mg p.o. twice daily Make MiraLAX 17 g scheduled daily Add on senna 8.6 mg once daily with first dose now (18) DVT prophylaxis: Heparin drip converting Eliquis today as above for PE Disposition-continued stay, PT/OT recommending SNF, but patient would prefer to go home Recommend that she continue to work with PT each day to see if safe to go home Possible discharge in the next 1 to 2 days Admission and Anticipated Discharge Date Admission Date: March 23, 2021 Subjective Patient reports feeling better, denies shortness of breath but remains on nasal cannula. Denies chest pain, no abdominal pain. Remains afebrile. She has not moved her bowels since admission. Telemetry with normal sinus rhythm, PACs, rates in the 80s to 90s. Review of Systems Review of Systems: All systems reviewed & are unremarkable except as noted in HPI & below Physical Exam Constitutional: WD/WN, vitals as above Eyes: + anicteric sclerae ENMT: Ears: no hearing impairment Neck: trachea midline, no thyromegaly Respiratory: normal respiratory effort Auscultation: + crackles (Bibasilar); no rhonchi and no wheezes Cardiovascular: Rate/Rhythm: regular rate and regular rhythm Extremities: + edema (1+ pitting edema bilateral legs) Chest (Breasts): Chest: normal inspection of chest Gastrointestinal (Abdomen): normal bowel sounds, soft, nontender, no hepatosplenomegaly Musculoskeletal: Extremities: extremities normal to inspection; no cyanosis and no clubbing Skin: no rashes, warm and dry Neurologic: moves all extremities and awake; no focal motor deficits Psychiatric: A+Ox3, euthymic affect Lymphatic: no lymphedema Results & Data Results & Data ([facility]) Vital Signs (Past 12 Hours) Vital Signs Temp Pulse Pulse Pulse Resp BP Pulse Ox 03/26/21 16:08 86 03/26/21 15:22 37.1 C 85 16 150/90 H 94 03/26/21 14:04 98 03/26/21 11:55 36.7 C 83 16 126/78 94 03/26/21 07:12 83 03/26/21 06:39 37.2 C 82 20 131/78 97 Laboratory Results 03/26/21 03/26/21 03/26/21 Range/Units 17:28 16:44 11:32 WBC (4.8-10.8) K/uL RBC (4.2-5.4) M/uL Hgb (12.0-16.0) g/dL Hct (37-47) % MCV (80-100) fL MCH (25-34) pg MCHC (32-36) g/dL RDW Std Deviation (36.4-46.3) fL RDW Coeff of Adolfo (11.5-14.5) % Plt Count (130-400) K/uL MPV (7.4-10.4) fL Immature Gran % (Auto) % Neut % (Auto) % Lymph % (Auto) % Coal % (Auto) % Eos % (Auto) % Baso % (Auto) % Neut # (Auto) (1.4-6.5) K/uL Lymph # (Auto) (1.2-3.4) K/uL Coal # (Auto) (0.11-0.59) K/uL Eos # (Auto) (0-0.5) K/uL Baso # (Auto) (0-0.2) K/uL Immature Gran # (Auto) (0.00-0.02) K/uL PT (9.0-12.0) Seconds INR (0.9-1.1) APTT 34.7 H (21.0-31.0) Seconds PTT Ratio 1.3 Sodium (136-145) mmol/L Potassium (3.5-5.1) mmol/L Chloride (98-107) mmol/L Carbon Dioxide (21-32) mmol/L Anion Gap (3-11) BUN (7-18) mg/dl Creatinine (0.6-1.2) mg/dl Est Cr Clr Drug Dosing ml/min Est GFR ( Amer) Est GFR (Non-Af Amer) BUN/Creatinine Ratio (10-20) Glucose (70-99) mg/dl POC Glucose 139 H 146 H (70-99) mg/dl Calcium (8.5-10.1) mg/dl Phosphorus (2.5-4.9) mg/dl Magnesium (1.8-2.4) mg/dl 03/26/21 03/26/21 03/26/21 Range/Units 09:12 07:12 03:27 WBC (4.8-10.8) K/uL RBC (4.2-5.4) M/uL Hgb (12.0-16.0) g/dL Hct (37-47) % MCV (80-100) fL MCH (25-34) pg MCHC (32-36) g/dL RDW Std Deviation (36.4-46.3) fL RDW Coeff of Adolfo (11.5-14.5) % Plt Count (130-400) K/uL MPV (7.4-10.4) fL Immature Gran % (Auto) % Neut % (Auto) % Lymph % (Auto) % Coal % (Auto) % Eos % (Auto) % Baso % (Auto) % Neut # (Auto) (1.4-6.5) K/uL Lymph # (Auto) (1.2-3.4) K/uL Coal # (Auto) (0.11-0.59) K/uL Eos # (Auto) (0-0.5) K/uL Baso # (Auto) (0-0.2) K/uL Immature Gran # (Auto) (0.00-0.02) K/uL PT 11.2 (9.0-12.0) Seconds INR 1.1 (0.9-1.1) APTT 33.7 H 38.5 H (21.0-31.0) Seconds PTT Ratio 1.3 1.5 Sodium (136-145) mmol/L Potassium (3.5-5.1) mmol/L Chloride (98-107) mmol/L Carbon Dioxide (21-32) mmol/L Anion Gap (3-11) BUN (7-18) mg/dl Creatinine (0.6-1.2) mg/dl Est Cr Clr Drug Dosing ml/min Est GFR ( Amer) Est GFR (Non-Af Amer) BUN/Creatinine Ratio (10-20) Glucose (70-99) mg/dl POC Glucose 123 H (70-99) mg/dl Calcium (8.5-10.1) mg/dl Phosphorus (2.5-4.9) mg/dl Magnesium (1.8-2.4) mg/dl 03/26/21 03/26/21 03/25/21 Range/Units 03:27 03:27 20:13 WBC 14.40 H (4.8-10.8) K/uL RBC 3.23 L (4.2-5.4) M/uL Hgb 9.1 L (12.0-16.0) g/dL Hct 26.8 L (37-47) % MCV 83.0 (80-100) fL MCH 28.2 (25-34) pg MCHC 34.0 (32-36) g/dL RDW Std Deviation 45.5 (36.4-46.3) fL RDW Coeff of Adolfo 14.8 H (11.5-14.5) % Plt Count 141 (130-400) K/uL MPV 11.4 H (7.4-10.4) fL Immature Gran % (Auto) 0.4 % Neut % (Auto) 85.8 % Lymph % (Auto) 6.9 % Coal % (Auto) 5.7 % Eos % (Auto) 1.1 % Baso % (Auto) 0.1 % Neut # (Auto) 12.35 H (1.4-6.5) K/uL Lymph # (Auto) 0.99 L (1.2-3.4) K/uL Coal # (Auto) 0.82 H (0.11-0.59) K/uL Eos # (Auto) 0.16 (0-0.5) K/uL Baso # (Auto) 0.02 (0-0.2) K/uL Immature Gran # (Auto) 0.06 H (0.00-0.02) K/uL PT (9.0-12.0) Seconds INR (0.9-1.1) APTT (21.0-31.0) Seconds PTT Ratio Sodium 140 (136-145) mmol/L Potassium 3.3 L (3.5-5.1) mmol/L Chloride 108 H (98-107) mmol/L Carbon Dioxide 25 (21-32) mmol/L Anion Gap 7.0 (3-11) BUN 23 H (7-18) mg/dl Creatinine 0.83 (0.6-1.2) mg/dl Est Cr Clr Drug Dosing 56.8 ml/min Est GFR ( Amer) 78.3 Est GFR (Non-Af Amer) 67.5 BUN/Creatinine Ratio 27.8 H (10-20) Glucose 134 H (70-99) mg/dl POC Glucose 140 H (70-99) mg/dl Calcium 7.9 L (8.5-10.1) mg/dl Phosphorus 1.6 L (2.5-4.9) mg/dl Magnesium 1.8 (1.8-2.4) mg/dl 03/25/21 Range/Units 19:39 WBC (4.8-10.8) K/uL RBC (4.2-5.4) M/uL Hgb (12.0-16.0) g/dL Hct (37-47) % MCV (80-100) fL MCH (25-34) pg MCHC (32-36) g/dL RDW Std Deviation (36.4-46.3) fL RDW Coeff of Adolfo (11.5-14.5) % Plt Count (130-400) K/uL MPV (7.4-10.4) fL Immature Gran % (Auto) % Neut % (Auto) % Lymph % (Auto) % Coal % (Auto) % Eos % (Auto) % Baso % (Auto) % Neut # (Auto) (1.4-6.5) K/uL Lymph # (Auto) (1.2-3.4) K/uL Coal # (Auto) (0.11-0.59) K/uL Eos # (Auto) (0-0.5) K/uL Baso # (Auto) (0-0.2) K/uL Immature Gran # (Auto) (0.00-0.02) K/uL PT (9.0-12.0) Seconds INR (0.9-1.1) APTT 33.3 H (21.0-31.0) Seconds PTT Ratio 1.3 Sodium (136-145) mmol/L Potassium (3.5-5.1) mmol/L Chloride (98-107) mmol/L Carbon Dioxide (21-32) mmol/L Anion Gap (3-11) BUN (7-18) mg/dl Creatinine (0.6-1.2) mg/dl Est Cr Clr Drug Dosing ml/min Est GFR ( Amer) Est GFR (Non-Af Amer) BUN/Creatinine Ratio (10-20) Glucose (70-99) mg/dl POC Glucose (70-99) mg/dl Calcium (8.5-10.1) mg/dl Phosphorus (2.5-4.9) mg/dl Magnesium (1.8-2.4) mg/dl PG Care Time/CCT Total # of Minutes Spent Total Time Spent with Patient: Total time spent is greater than 50% in coordination of care (as documented) at patient's floor/unit and/or counseling patient: Coding Level of Care Code 75073 Subseq Hosp Care Lvl 3 Diagnoses Septic shock A41.9; R65.21 Septicemia due to E. coli A41.51 Kidney stone N20.0 LIANG (acute kidney injury) N17.9 Pulmonary embolism I26.99 Hypertension I10 Hypertension type: essential hypertension Hyperlipidemia E78.5 Intertrochanteric fracture of right hip S72.144A Encounter type: initial encounter Fracture alignment: nondisplaced Fracture type: closed Hypokalemia E87.6 Hypophosphatemia E83.39 Acute respiratory failure with hypoxia J96.01 Volume overload E87.70 Elevated troponin R77.8 Depression F32.9 Anemia D64.9 S/P ureteral stent placement Z96.0 Constipation K59.00 DVT prophylaxis Z29.9 (1) Hypertension Hypertension type: essential hypertension Qualified Code(s): I10 - Essential (primary) hypertension (2) Intertrochanteric fracture of right hip Encounter type: initial encounter Fracture alignment: nondisplaced Fracture type: closed Qualified Code(s): S72.144A - Nondisplaced intertrochanteric fracture of right femur, initial encounter for closed fracture
[2021-03-26 17:45] LABS: Partial Thromboplastin Ratio 1.3; Partial Thromboplastin Time 34.7 Seconds (21.0-31.0)
[2021-03-26] MEDS: POLYETHYLENE (MIRALAX) 17 GM PACK PO SCH (18:58)
[2021-03-26] MEDS ORDERED: POTASSIUM CHLORIDE CRTAB 20 MEQ TABCR PO STA (20:00)
[2021-03-26] MEDS: APIXABAN 5 MG TABLET PO SCH (20:16)
[2021-03-26] MEDS: SENNA 8.6 MG TAB PO SCH (20:16)
[2021-03-26] MEDS: SIMVASTATIN 20 MG TAB PO SCH (20:17)
[2021-03-26] MEDS: PARoxetine HCL 20 MG TAB PO SCH (20:17)
[2021-03-27] MEDS: ceFAZolin 2000MG 2,000 MG/15 ML SYR IV SCH ×3 (01:42→18:05)
[2021-03-27] MEDS: APIXABAN 5 MG TABLET PO SCH ×2 (06:09→18:42)
[2021-03-27 07:25] LABS: Basophils # (auto) 0.02 K/uL (0-0.2); Basophils % (auto) 0.2 %; Eosinophils # (auto) 0.19 K/uL (0-0.5); Eosinophils % (auto) 1.6 %; Hematocrit (blood only) 28.2 % (37-47); Hemoglobin 9.3 g/dL (12.0-16.0); Immature Granulocytes # (auto) 0.08 K/uL (0.00-0.02); Immature Granulocytes % (auto) 0.7 %; Lymphocytes # (auto) 1.11 K/uL (1.2-3.4); Lymphocytes % (auto) 9.3 %; Mean Corpuscular Hemoglobin 27.6 pg (25-34); Mean Corpuscular Volume 83.7 fL (80-100); Mean Platelet Volume 11.5 fL (7.4-10.4); Monocytes # (auto) 1.03 K/uL (0.11-0.59); Monocytes % (auto) 8.7 %; Neutrophils # (auto) 9.46 K/uL (1.4-6.5); Neutrophils % (auto) 79.5 %; Platelet Count 131 K/uL (130-400); RDW Coefficient of Variation 15.3 % (11.5-14.5); Red Blood Count 3.37 M/uL (4.2-5.4); White Blood Count 11.89 K/uL (4.8-10.8)
[2021-03-27 08:07] LABS: Albumin Globulin Ratio 0.5 (0.9-2); Albumin Level 1.8 gm/dl (3.4-5.0); BUN Creatinine Ratio 23.7 (10-20); Bilirubin,Total 1.2 mg/dl (0.2-1); Calcium 8.5 mg/dl (8.5-10.1); Creatinine Clr Calc Pharmacy 65.5 ml/min; Est GFR (Non-African American) 80.2 ml/min; Ferritin 141.2 ng/ml (8-388); Globulin 3.8 gm/dl (2.5-4.0); Magnesium 1.6 mg/dl (1.8-2.4); Phosphorus 2.9 mg/dl (2.5-4.9); Potassium 3.4 mmol/L (3.5-5.1); Total Protein 5.6 gm/dl (6.4-8.2)
[2021-03-27] MEDS: SENNA 8.6 MG TAB PO SCH ×2 (08:32→19:40)
[2021-03-27] MEDS: POLYETHYLENE (MIRALAX) 17 GM PACK PO SCH (08:33)
[2021-03-27] MEDS: DOCUSATE SODIUM 100 MG CAP PO SCH ×2 (08:43→19:44)
[2021-03-27] MEDS: INSULIN ASPART 100 UNITS/ML 3 ML PEN SC SCH ×4 (08:44→20:26)
[2021-03-27] MEDS ORDERED: POTASSIUM CHLORIDE CRTAB 20 MEQ TABCR PO STA ×2 (15:32→17:04)
--- NOTE | 2021-03-27 15:53 | Hospitalist Progress Note ---
Date of Service March 27, 2021 Assessment & Plan (1) Septic shock: Presented with septic shock secondary to E. coli UTI, ureterolithiasis, and E. coli septicemia Admitted to the ICU initially and was on Levophed-has since been weaned off and blood pressures are much improved Initiated on Broad-spectrum antibiotics per critical care service Antibiotics since switched to cefazolin as both blood and urine cultures show pansensitive E. COLI Has since been transferred out of ICU for several days -Resolved -finish out 14 day course of antibiotics, but can switch to po upon discharge as is gram negative sepsis (2) Septicemia due to E. coli: As above Pansensitive Continue IV cefazolin for now and can transition to p.o. antibiotics upon discharge to complete a total of 2 weeks-would prefer to keep on antibiotics until after stent removal (3) Kidney stone: CT abdomen/pelvis upon admission showed 7 mm right proximal ureteral obstructing calculus with mild to moderate right hydronephrosis Presented with septic shock as above and acute kidney injury now status post urgent right ureteral stent placement on 03/[address] Tavarez -Urology recommends maintaining Watkins catheter for several days and can do passive voiding trial prior to discharge-we will maintain Watkins for today as she is being diuresed with IV Lasix -Urology to arrange outpatient follow-up for stone management and stent removal (4) LIANG (acute kidney injury): Likely secondary to renal stone, hypotension, and sepsis Now resolved Creatinine 2.09 on admission and now down to 0.72 after IV fluids, ureteral stent placement, and blood pressure support Continue to hold home lisinopril -Diuresing with IV Lasix (5) Pulmonary embolism: Found on CT angiogram of the chest performed upon admission-is segmental in the branch of the right upper lobe pulmonary artery Most likely secondary to recent hip fracture surgery and hospitalization despite using daily Lovenox injections through 03/18 as per daughter No previous history of DVT/PE Venous Dopplers here negative for bilateral DVT -Recommend 3 months of anticoagulation-converted heparin drip to Eliquis on 03/26-discussed with Dr. Munguia-since she has been therapeutic on heparin for 3 days, will only do 3 days of Eliquis 10 mg p.o. twice daily followed by 5 mg p.o. twice daily--> will start Eliquis 5mg bid on 03/29 Bleeding risk is low and she has been tolerating heparin drip without bleeding Echocardiogram with mildly elevated right-sided pressures Her hypotension upon admission was not related to this small PE (6) Volume overload: As above and hypoxia, improving now with decreased O2 requirement and less peripheral edema, bibasilar crackles improved Continue Diuresing Echocardiogram with preserved EF -give another dose of IV lasix 20mg today (received bid dosing on 03/26) (7) Acute respiratory failure with hypoxia: Requiring 4 L nasal cannula, now weaned down to 2LNC after IV lasix Chest x-ray with bilateral pleural effusions and volume overload secondary to resuscitation with volume during septic shock Renal failure is resolved Treated with IV Lasix 20 mg bid on 03/26 and will give another dose today -dose IV lasix daily as long as renal function ok and until weight down to baseline, O2 requirement improved Follow BMP in the morning Wean off oxygen as able to (8) Hypokalemia: Continue to replace especially now that giving IV Lasix Follow BMP, magnesium in the morning (9) Hypophosphatemia: Replaced and improved (10) Elevated troponin: Troponin elevated upon admission at 0.170, thought to be myocardial demand ischemia in the setting of septic shock versus secondary to pulmonary embolism Echocardiogram here with no wall motion abnormalities, preserved EF Patient denies chest pain ECG on admission without ischemic changes (11) Depression: Stable, continue home Paxil (12) Anemia: Hemoglobin low but stable at 9.3, recent hip surgery Follow CBC in the morning No bleeding from anywhere iron studies normal, likely acute blood loss from recent hip fracture (13) S/P ureteral stent placement: As above, f/u outpt in 1-2 weeks with Urology (14) Constipation: No bowel movement since admission-persists Continue docusate 100 mg p.o. twice daily continue MiraLAX 17 g scheduled daily Increase senna 8.6 mg to bid (15) Hypertension: Hypotensive on admission, now blood pressures are normal Continue to hold home lisinopril while diuresing, acute kidney injury has resolved -Holding home atenolol and amlodipine but can restart these over the next day or so after diuresis (16) Hyperlipidemia: Continue simvastatin (17) Intertrochanteric fracture of right hip: Suffered a right hip fracture in 02/2021 and was rehabbing with home physical therapy PT/OT consults placed-recommend SNF and pt now agreeable to this when medically stable (18) Hypomagnesemia: low today from diuresis replace with IV mag sulfate check Mag level in AM (19) DVT prophylaxis: Heparin drip converted to Eliquis as above for PE Disposition-continued stay, PT/OT recommending SNF, and pt now agreeable- discussed with [employer] [facility] Possible discharge in the next 1 to 2 days if diuresis achieved, hypoxia improved, clinically better Admission and Anticipated Discharge Date Admission Date: March 23, 2021 Subjective Pt was out of bed in chair today and was a max assist, took 4 steps today. SHe has pain in her right hip and requests an ice pack. She is agreeable to rehab as she knows she is very weak. Denies CP or SOB, is weaned down to 2LNC. Tele with NSR, PACs, rates 80-90s Review of Systems Review of Systems: All systems reviewed & are unremarkable except as noted in HPI & below Physical Exam Constitutional: WD/WN, vitals as above Eyes: + anicteric sclerae ENMT: Ears: no hearing impairment Neck: trachea midline, no thyromegaly Respiratory: normal respiratory effort Auscultation: + crackles (Bibas ilar,improved); no rhonchi and no wheezes Cardiovascular: Rate/Rhythm: regular rate and regular rhythm Extremities: + edema (trace pitting edema bilateral legs, improved) Chest (Breasts): Chest: normal inspection of chest Gastrointestinal (Abdomen): normal bowel sounds, soft, nontender, no hepatosplenomegaly Musculoskeletal: Extremities: extremities normal to inspection; no cyanosis and no clubbing Skin: no rashes, warm and dry Neurologic: moves all extremities and awake; no focal motor deficits Psychiatric: A+Ox3, euthymic affect Genitourinary: Watkins in place draining clear yellow urine Results & Data Results & Data ([facility]) Vital Signs (Past 12 Hours) Vital Signs Temp Pulse Resp BP Pulse Ox 03/27/21 14:52 36.7 C 88 20 124/76 97 03/27/21 11:37 37.1 C 88 20 148/86 H 97 03/27/21 10:15 96 03/27/21 08:00 98 03/27/21 06:42 36.9 C 85 20 136/79 97 Laboratory Results 05/13/21 05/13/21 05/13/21 Range/Units 11:23 07:22 06:08 WBC (4.8-10.8) K/uL RBC (4.2-5.4) M/uL Hgb (12.0-16.0) g/dL Hct (37-47) % MCV (80-100) fL MCH (25-34) pg MCHC (32-36) g/dL RDW Std Deviation (36.4-46.3) fL RDW Coeff of Adolfo (11.5-14.5) % Plt Count (130-400) K/uL MPV (7.4-10.4) fL Immature Gran % (Auto) % Neut % (Auto) % Lymph % (Auto) % [place] % (Auto) % Eos % (Auto) % Baso % (Auto) % Neut # (Auto) (1.4-6.5) K/uL Lymph # (Auto) (1.2-3.4) K/uL [place] # (Auto) (0.11-0.59) K/uL Eos # (Auto) (0-0.5) K/uL Baso # (Auto) (0-0.2) K/uL Immature Gran # (Auto) (0.00-0.02) K/uL APTT (21.0-31.0) Seconds PTT Ratio Sodium (136-145) mmol/L Potassium (3.5-5.1) mmol/L Chloride (98-107) mmol/L Carbon Dioxide (21-32) mmol/L Anion Gap (3-11) BUN (7-18) mg/dl Creatinine (0.6-1.2) mg/dl Est Cr Clr Drug Dosing ml/min Est GFR ( Amer) ml/min Est GFR (Non-Af Amer) ml/min BUN/Creatinine Ratio (10-20) Glucose (70-99) mg/dl POC Glucose 176 H 132 H (70-99) mg/dl Calcium (8.5-10.1) mg/dl Phosphorus (2.5-4.9) mg/dl Magnesium (1.8-2.4) mg/dl Iron (35-150) mcg/dl TIBC (250-450) mcg/dl Transferrin (200-360) mg/dl Transferrin % Sat (15-50) % Ferritin (8-388) ng/ml Total Bilirubin (0.2-1) mg/dl AST (15-37) U/L ALT (12-78) U/L Alkaline Phosphatase (45-117) U/L Total Protein (6.4-8.2) gm/dl Albumin (3.4-5.0) gm/dl Globulin (2.5-4.0) gm/dl Albumin/Globulin Ratio (0.9-2) Procalcitonin 37.81 H (0-0.5) ng/ml 03/27/21 03/27/21 03/26/21 Range/Units 06:08 06:08 20:23 WBC 11.89 H (4.8-10.8) K/uL RBC 3.37 L (4.2-5.4) M/uL Hgb 9.3 L (12.0-16.0) g/dL Hct 28.2 L (37-47) % MCV 83.7 (80-100) fL MCH 27.6 (25-34) pg MCHC 33.0 (32-36) g/dL RDW Std Deviation 47.0 H (36.4-46.3) fL RDW Coeff of Adolfo 15.3 H (11.5-14.5) % Plt Count 131 (130-400) K/uL MPV 11.5 H (7.4-10.4) fL Immature Gran % (Auto) 0.7 % Neut % (Auto) 79.5 % Lymph % (Auto) 9.3 % [place] % (Auto) 8.7 % Eos % (Auto) 1.6 % Baso % (Auto) 0.2 % Neut # (Auto) 9.46 H (1.4-6.5) K/uL Lymph # (Auto) 1.11 L (1.2-3.4) K/uL [place] # (Auto) 1.03 H (0.11-0.59) K/uL Eos # (Auto) 0.19 (0-0.5) K/uL Baso # (Auto) 0.02 (0-0.2) K/uL Immature Gran # (Auto) 0.08 H (0.00-0.02) K/uL APTT (21.0-31.0) Seconds PTT Ratio Sodium 138 (136-145) mmol/L Potassium 3.4 L (3.5-5.1) mmol/L Chloride 104 (98-107) mmol/L Carbon Dioxide 26 (21-32) mmol/L Anion Gap 8.0 (3-11) BUN 17 (7-18) mg/dl Creatinine 0.72 (0.6-1.2) mg/dl Est Cr Clr Drug Dosing 65.5 ml/min Est GFR ( Amer) 93.0 ml/min Est GFR (Non-Af Amer) 80.2 ml/min BUN/Creatinine Ratio 23.7 H (10-20) Glucose 123 H (70-99) mg/dl POC Glucose 161 H (70-99) mg/dl Calcium 8.5 (8.5-10.1) mg/dl Phosphorus 2.9 D (2.5-4.9) mg/dl Magnesium 1.6 L (1.8-2.4) mg/dl Iron 65 (35-150) mcg/dl TIBC 243 L (250-450) mcg/dl Transferrin 191 L (200-360) mg/dl Transferrin % Sat 24 (15-50) % Ferritin 141.2 (8-388) ng/ml Total Bilirubin 1.2 H (0.2-1) mg/dl AST 29 (15-37) U/L ALT 29 (12-78) U/L Alkaline Phosphatase 534 H (45-117) U/L Total Protein 5.6 L (6.4-8.2) gm/dl Albumin 1.8 L (3.4-5.0) gm/dl Globulin 3.8 (2.5-4.0) gm/dl Albumin/Globulin Ratio 0.5 L (0.9-2) Procalcitonin (0-0.5) ng/ml 03/26/21 03/26/21 Range/Units 17:28 16:44 WBC (4.8-10.8) K/uL RBC (4.2-5.4) M/uL Hgb (12.0-16.0) g/dL Hct (37-47) % MCV (80-100) fL MCH (25-34) pg MCHC (32-36) g/dL RDW Std Deviation (36.4-46.3) fL RDW Coeff of Adolfo (11.5-14.5) % Plt Count (130-400) K/uL MPV (7.4-10.4) fL Immature Gran % (Auto) % Neut % (Auto) % Lymph % (Auto) % [place] % (Auto) % Eos % (Auto) % Baso % (Auto) % Neut # (Auto) (1.4-6.5) K/uL Lymph # (Auto) (1.2-3.4) K/uL [place] # (Auto) (0.11-0.59) K/uL Eos # (Auto) (0-0.5) K/uL Baso # (Auto) (0-0.2) K/uL Immature Gran # (Auto) (0.00-0.02) K/uL APTT 34.7 H (21.0-31.0) Seconds PTT Ratio 1.3 Sodium (136-145) mmol/L Potassium (3.5-5.1) mmol/L Chloride (98-107) mmol/L Carbon Dioxide (21-32) mmol/L Anion Gap (3-11) BUN (7-18) mg/dl Creatinine (0.6-1.2) mg/dl Est Cr Clr Drug Dosing ml/min Est GFR ( Amer) ml/min Est GFR (Non-Af Amer) ml/min BUN/Creatinine Ratio (10-20) Glucose (70-99) mg/dl POC Glucose 139 H (70-99) mg/dl Calcium (8.5-10.1) mg/dl Phosphorus (2.5-4.9) mg/dl Magnesium (1.8-2.4) mg/dl Iron (35-150) mcg/dl TIBC (250-450) mcg/dl Transferrin (200-360) mg/dl Transferrin % Sat (15-50) % Ferritin (8-388) ng/ml Total Bilirubin (0.2-1) mg/dl AST (15-37) U/L ALT (12-78) U/L Alkaline Phosphatase (45-117) U/L Total Protein (6.4-8.2) gm/dl Albumin (3.4-5.0) gm/dl Globulin (2.5-4.0) gm/dl Albumin/Globulin Ratio (0.9-2) Procalcitonin (0-0.5) ng/ml PG Care Time/CCT Total # of Minutes Spent Total Time Spent with Patient: Total time spent is greater than 50% in coordinat ion of care (as documented) at patient's floor/unit and/or counseling patient: Coding Level of Care Code 62094 Subseq Hosp Care Lvl 3 Diagnoses Septic shock A41.9; R65.21 Septicemia due to E. coli A41.51 Kidney stone N20.0 LIANG (acute kidney injury) N17.9 Pulmonary embolism I26.99 Volume overload E87.70 Acute respiratory failure with hypoxia J96.01 Hypokalemia E87.6 Hypophosphatemia E83.39 Elevated troponin R77.8 Depression F32.9 Anemia D64.9 S/P ureteral stent placement Z96.0 Constipation K59.00 Hypertension I10 Hypertension type: essential hypertension Hyperlipidemia E78.5 Intertrochanteric fracture of right hip S72.144A Encounter type: initial encounter Fracture alignment: nondisplaced Fracture type: closed Hypomagnesemia E83.42 DVT prophylaxis Z29.9 (1) Hypertension Hypertension type: essential hypertension Qualified Code(s): I10 - Essential (primary) hypertension (2) Intertrochanteric fracture of right hip Encounter type: initial encounter Fracture alignment: nondisplaced Fracture type: closed Qualified Code(s): S72.144A - Nondisplaced intertrochanteric fra cture of right femur, initial encounter for closed fracture
[2021-03-27] MEDS ORDERED: FUROSEMIDE 20 MG in SYRINGE 0 ML IV ONE (16:00)
[2021-03-27] MEDS: MAGNESIUM SULFATE / D5W 1 GM/100 ML BAG IV SCH ×2 (16:55→18:43)
[2021-03-27] MEDS: PARoxetine HCL 20 MG TAB PO SCH (19:40)
[2021-03-27] MEDS: SIMVASTATIN 20 MG TAB PO SCH (19:40)
[2021-03-27] MEDS ORDERED: POTASSIUM CHLORIDE CRTAB 20 MEQ TABCR PO ONE (21:00)
[2021-03-28] MEDS: ceFAZolin 2000MG 2,000 MG/15 ML SYR IV SCH ×2 (02:37→10:07)
[2021-03-28] MEDS: APIXABAN 5 MG TABLET PO SCH (06:50)
[2021-03-28 07:07] LABS: Basophils # (auto) 0.03 K/uL (0-0.2); Basophils % (auto) 0.3 %; Eosinophils % (auto) 1.9 %; Hematocrit (blood only) 28.1 % (37-47); Hemoglobin 9.4 g/dL (12.0-16.0); Immature Granulocytes # (auto) 0.12 K/uL (0.00-0.02); Immature Granulocytes % (auto) 1.2 %; Lymphocytes # (auto) 1.16 K/uL (1.2-3.4); Lymphocytes % (auto) 11.2 %; Mean Corpuscular Hemoglobin 27.9 pg (25-34); Mean Corpuscular Hgb Conc 33.5 g/dL (32-36); Mean Corpuscular Volume 83.4 fL (80-100); Mean Platelet Volume 11.5 fL (7.4-10.4); Monocytes % (auto) 11.6 %; Neutrophils # (auto) 7.61 K/uL (1.4-6.5); Neutrophils % (auto) 73.8 %; Platelet Count 141 K/uL (130-400); RDW Coefficient of Variation 15.4 % (11.5-14.5); Red Blood Count 3.37 M/uL (4.2-5.4); White Blood Count 10.32 K/uL (4.8-10.8)
[2021-03-28 07:50] LABS: Albumin Globulin Ratio 0.5 (0.9-2); Albumin Level 1.9 gm/dl (3.4-5.0); BUN Creatinine Ratio 30.4 (10-20); Bilirubin,Total 0.9 mg/dl (0.2-1); Calcium 8.5 mg/dl (8.5-10.1); Creatinine Clr Calc Pharmacy 87.3 ml/min; Est GFR (African American) 104.8 ml/min; Est GFR (Non-African American) 90.4 ml/min; Globulin 3.6 gm/dl (2.5-4.0); Phosphorus 3.3 mg/dl (2.5-4.9); Total Protein 5.5 gm/dl (6.4-8.2)
[2021-03-28] MEDS: SENNA 8.6 MG TAB PO SCH (09:47)
[2021-03-28] MEDS: POLYETHYLENE (MIRALAX) 17 GM PACK PO SCH (09:47)
[2021-03-28] MEDS: INSULIN ASPART 100 UNITS/ML 3 ML PEN SC SCH ×2 (09:48→12:24)
[2021-03-28] MEDS: DOCUSATE SODIUM 100 MG CAP PO SCH (09:53)
--- NOTE | 2021-03-28 10:46 | XRay Report ---
XR chest 1V portable CLINICAL HISTORY: Hypoxemia COMPARISON STUDY: 03/25/2021 FINDINGS: The heart is normal in size. There is a left internal jugular central venous catheter uncha nged in position. There is a retrocardiac opacity consistent with a hiatal hernia. There is no focal pulmonary consolidation. There is resolving congestive failure.[ IMPRESSION: 1. Resolving congestive failure. No evidence of focal pulmonary consolidation ACT 112: Negative or not required by law. Electronically signed by: Frank Hager M.D. 03/28/2021 10:44 AM
--- NOTE | 2021-03-28 13:54 | Discharge Summary ---
Date of Service March 28, 2021 Admission HPI Per Admitting Provider This is a 72-year-old female with past medical history of hypertension, hyperlipidemia, and recent right intramedullary nail of the femur secondary to intratrochanteric fracture that presents today complaining weakness. She is somewhat limited historian, daughter is at bedside. Of note, patient was in the hospital 07/04/2021 after a fall. She was found to have a right femoral intertrochanteric fracture. She underwent intramedullary nailing. Patient was discharged home to the care of the daughter without any issues. Patient returned today complaining of generalized weakness. She generally did not have any symptoms and specifically denied any fever, chills, chest pain, shortness of breath. She did note some right flank pain without radiation. Initial work-up in the emergency room found that the patient was not febrile but had significant hypotension with initial blood pressure of 72/43. Work-up included CT angiogram as well as a CT abdomen. This revealed a right upper lobe segmental pulmonary embolus. In addition, there is a 7 mm obstructing calculus in the right proximal ureter just below the ureteropelvic junction. This was causing hydronephrosis. Lab work revealed that the patient was septic with a lactate over 8. We are being asked to admit the patient to the ICU for definitive treatment of sepsis, urinary tract infection, and PE. The emergency room physician is already discussed with Dr. Tavarez with urology and the patient will be taken to the OR for cystoscopy momentarily. Principal Diagnosis Bacteremia from E. coli Discharge Exam Constitutional WD/WN, vitals as above Eyes EOM intact bilaterally; no conjunctival abnormality ENMT external ear and nose normal, oropharynx normal Neck trachea midline, no thyromegaly normal visual inspection Respiratory normal respiratory effort, lungs clear to auscultation no respiratory distress Cardiovascular RRR, no murmur, no edema Gastrointestinal (Abdomen) Inspection/Auscultation: abdomen normal to inspection; abdomen not distended Musculoskeletal no cyanosis or clubbing, extremities motor strength 5/5 Skin no rashes, warm and dry Neurologic moves all extremities and awake Psychiatric Orientation: alert, oriented to person and cooperative Discharge Data Allergies Allergy/AdvReac Type Severity Reaction Status Date / Time No Known Allergies Allergy Verified 02/14/21 21:46 Consultations 03/23/21 15:09 ED Decision to Admit Stat 03/23/21 17:37 Consult Custom Ski Maker Routine 03/26/21 08:23 Consult Urology Routine Procedures Performed Operation Date: 03/23/21 15:50 Actual Procedures p Cystoscopy, Right Retrograde Pyelogram, Right Ureter Stent Placement (Right) - Earle Tavarez DO Operation Date: 03/23/21 16:00 <No data on this case meets the specified criteria> Ordered Studies 03/23/21 FL retrograde includes kub Routine 03/23/21 13:49 CT abd pelvis IV con only Stat 03/23/21 13:50 CT angio chest PE protocol Stat 03/23/21 16:34 US venous doppler LE BI Routine Hospital Course (1) Septic shock: Presented with septic shock secondary to E. coli UTI, ureterolithiasis, and E. coli septicemia Admitted to the ICU initially and was on Levophed-has since been weaned off and blood pressures are much improved Initiated on Broad-spectrum antibiotics per critical care service Antibiotics since switched to cefazolin as both blood and urine cultures show pansensitive E. COLI Has since been transferred out of ICU for several days -Resolved - Finish out 14 day course of antibiotics, but can switch to po upon discharge as is gram negative sepsis. Discharged on cefdinir. Follow up with urology. (2) Septicemia due to E. coli: As above Pansensitive Continue IV cefazolin for now and can transition to p.o. antibiotics upon discharge to complete a total of 2 weeks-would prefer to keep on antibiotics until after stent removal (3) Kidney stone: CT abdomen/pelvis upon admission showed 7 mm right proximal ureteral obstructing calculus with mild to moderate right hydronephrosis Presented with septic shock as above and acute kidney injury now status post urgent right ureteral stent placement on 03/[address] Tavarez -Urology recommends maintaining Watkins catheter for several days and can do passive voiding trial prior to discharge - Removed Watkins on 03/28. - Urology to arrange outpatient follow-up for stone management and stent removal (4) LIANG (acute kidney injury): Likely secondary to renal stone, hypotension, and sepsis Now resolved Creatinine 2.09 on admission and now down to 0.72 after IV fluids, ureteral stent placement, and blood pressure support (5) Pulmonary embolism: Found on CT angiogram of the chest performed upon admission-is segmental in the branch of the right upper lobe pulmonary artery Most likely secondary to recent hip fracture surgery and hospitalization despite using daily Lovenox injections through 03/18 as per daughter No previous history of DVT/PE Venous Dopplers here negative for bilateral DVT - Recommend 3 months of anticoagulation - converted heparin drip to Eliquis on 03/26-discussed with Dr. Munguia-since she has been therapeutic on heparin for 3 days, will only do 3 days of Eliquis 10 mg p.o. twice daily followed by 5 mg p. o. twice daily--> will start Eliquis 5mg bid on 03/29 Bleeding risk is low and she has been tolerating heparin drip without bleeding Echocardiogram with mildly elevated right-sided pressures Her hypotension upon admission was not related to this small PE. (6) Volume overload: As above and hypoxia, improving now with decreased O2 requirement and less peripheral edema, bibasilar crackles improved Echocardiogram with preserved EF. NOT acute CHF. This was iatrogenic volume overload. - Given 3 doses of IV lasix 20mg today (received bid dosing on 03/26). On discharge, this was resolving by CXR and BNP. No need for further diuresis. (7) Acute respiratory failure with hypoxia: Requiring 4 L nasal cannula, now weaned down to 2LNC after IV lasix Chest x-ray with bilateral pleural effusions and volume overload secondary to resuscitation with volume during septic shock Renal failure is resolved Treated with IV Lasix 20 mg bid on 03/26 and will give another dose today -dose IV lasix daily as long as renal function ok and until weight down to baseline, O2 requirement improved Follow BMP in the morning Wean off oxygen as able to -> To room air on discharge. (8) Elevated troponin: Troponin elevated upon admission at 0.170, thought to be myocardial demand ischemia in the setting of septic shock versus secondary to pulmonary embolism Echocardiogram here with no wall motion abnormalities, preserved EF Patient denies chest pain ECG on admission without ischemic changes (9) Depression: Stable, continue home Paxil (10) Anemia: Hemoglobin low but stable at 9.3, recent hip surgery Follow CBC in the morning No bleeding from anywhere iron studies normal, likely acute blood loss from recent hip fracture (11) S/P ureteral stent placement: As above, f/u outpt in 1-2 weeks with Urology (12) Hypertension: Hypotensive on admission, now blood pressures are normal Continue to hold home lisinopril while diuresing, acute kidney injury has resolved -Holding home atenolol and amlodipine but can restart these over the next day or so after diuresis (13) Hyperlipidemia: Continue simvastatin (14) Intertrochanteric fracture of right hip: Suffered a right hip fracture in 02/2021 and was rehabbing with home physical therapy PT/OT consults placed-recommend SNF and pt now agreeable to this when medically stable (15) Abnormal finding on radiology exam: Two incidental findings on CT scans: 1) Abnormal endometrial thickening seen on CT. Requires a non-emergent intravaginal ultrasound as she is post-menopausal and this could represent endometrial cancer. Put in discharge instructions. 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 Referred to Dr. Bañuelos or other vascular surgeon. On my review of literature, these would be monitored and surgery considered if they grow >2.0 cm. Also entered in discharge instructions. Total Time Total Time Spent Total Time Spent (In Minutes): 35 Discharge Plan Discharge Items Patient Disposition: Transfer Long-Term Fac Reason For Visit: SEPSIS, PE, NEPHROLITHIASIS Discharge Diagnosis: Bacteria in the bloodstream Activity: Resume your previous activity Non-emergency contact: Primary Care Provider and Urologist Call non-emergency contact if: your symptoms worsen and your temperature is above 101 Follow-up/Referrals: Alison Vega DO [Physician] - (Please see a Vivienne Stephens relief driller or your usual customs investigator for follow-up of the thickening noted in the uterus.) Earle Tavarez DO [Physician] - (Please call next week for an appointment for follow-up.) Luis Ewing [Primary Care Provider] - Man Bañuelos MD [Physician] - (Please see Dr. Bañuelos for follow up of your splenic artery aneurysms.) Diet: Heart Healthy Addtl Attending Provider Instructions: Ms. Peñaloza, You were admitted to the hospital for low blood pressure that was due to bacteria in your bloodstream. Please continue the antibiotics for the next 10 days (Finish on 04/06/2021). Please follow up with urology next week to have your stent taken out and kidney stones taken out. You were also noted to have a blood clot in your lungs which may be related to your prior surgery. We started you on a blood thinner. TOMORROW (March 29), they should reduce your dose to 5 mg twice a day. We also noted that there is some thickening of your endometrium (the lining of your uterus). This should be followed up with an ultrasound by your PCP or your customs investigator. We also so some issues with an artery in your abdomen called the splenic artery. We would like you to see Dr. Bañuelos in his office to be sure there are no treatments needed for this. Pending Studies at Discharge: No Stand-Alone Forms: My [facility] Skilled Items Patient informed of condition?: Yes DNR: No Discharge Level of Care: Skilled Communicable Disease: No Discharge Prognosis: Stable Lines: None Urinary Catheter: No Medications and DC Order Prescriptions: New cefdinir 300 mg capsule 300 mg PO BID 10 Days Qty: 20 RF: 0 Eliquis 5 mg Tablet 10 mg PO BID@0700,1900 Qty: 0 RF: 0 Continued multivitamin Tablet 1 tab PO QAM RF: 0 atenolol 25 mg tablet 25 mg PO QAM RF: 0 amlodipine 5 mg Tablet 5 mg PO QAM RF: 0 paroxetine HCl 20 mg tablet 20 mg PO HS RF: 0 simvastatin 20 mg tablet 20 mg PO HS RF: 0 lisinopril 10 mg tablet 20 mg PO DAILY RF: 0 Discharge Orders: Discharge Order (Routine); Ordered 03/28/21 Ordered By: Ramez Garcia Admission Data Admit Date/Time: 03/23/21 15:33 Attending Provider: Ramez Garcia Admit Provider: Lester Blakely Primary Care Provider: Luis Ewing Other Providers: Chris Alvarez ; Earle Tavarez ; Ramez Garcia Coding Level of Care Code D/C Day Management >30 mins Diagnoses Septic shock A41.9; R65.21 Septicemia due to E. coli A41.51 Kidney stone N20.0 LIANG (acute kidney injury) N17.9 Pulmonary embolism I26.99 Volume overload E87.70 Acute respiratory failure with hypoxia J96.01 Elevated troponin R77.8 Depression F32.9 Anemia D64.9 S/P ureteral stent placement Z96.0 Hypertension I10 Hypertension type: essential hypertension Hyperlipidemia E78.5 Intertrochanteric fracture of right hip S72.144A Encounter type: initial encounter Fracture alignment: nondisplaced Fracture type: closed Abnormal finding on radiology exam R93.89
[2021-03-29] MEDS ORDERED: APIXABAN 5 MG TABLET PO SCH (19:00)
== END 2021-03-28 16:55 | DRG 853 ==
LOC: ED 12:59 → SUATTDRO 15:33 → OR 16:50 → SUATTDRO 16:51 → 1E 16:51 → 2N 03-25 09:56